=== PATIENT | female | born 1990 | race Caucasian/White ===

== ENCOUNTER 2017-07-27 16:28 | Emergency (ER) | payer SELFPAY ==
[~2017-07-27] VITALS: Ht 157.5 cm; Wt 80.7 kg
[~2017-07-27 16:28] MED LIST: ATENOLOL25 MG PO; ESTRACE 2MG. TAB2 MG PO; FIBER CON625 MG PO; GABAPENTIN300 MG PO; IRON TABLETS325 MG PO; KEFLEX 250MG.250 MG PO; MULTI VITAMINS1 TA1 PO; OMEPRAZOLE40 MG PO; PAXIL20 M1 PO; PERCOCET 325 MG1 TA4 PO; PERCOCET1 TAB PO; PROTONIX 40MG T40 MG PO
--- NOTE | 2017-07-27 16:34 | Emergency Room Report ---
History of Present Illness Time Seen by [id number] Presenting Problem in Triage Pt arrived:Walked Presenting Problem:RIGHT SIDE DENTAL PAIN; PT HAD A TOOTH REMOVED BY SHA HARMON DMD; PT PLACED ON CLINDAMYCIN AND LODINE. Onset of symptoms date/time:/ or onset unknown for:MEDICAL HX UNKNOWN Treatment Prior to Arrival: [employer] Provided by: Sepsis Risk Assessment: Temp: 97.8 B/P: 119/75 MAP: 89 Pulse: 68 Resp: 16 Recent fever? N Clinical Suspician of Infection? N Mental Status: 1 - Regular (Normal Baseline) Sepsis Risk:Low Sepsis Risk Have you (or family members/close friends) recently traveled outside the [place]? N If Yes, where/when: Have you had exposure to infectious disease within the past month? TB? Other? Specify: Comment The patient is brought in by mother. She complains of post dental extraction pain RIGHT mandible. She had a RIGHT molar extracted last Wednesday [address] Harmon in [place]. She has been having pain in that area since then. She was seen by the dentist yesterday and was told that she had a dry socket. The socket was packed, but patient says that the packing fell out. She was told by the dentist that that was okay that fell out. She says that she was also told that she has a "pocket of pus". She is on clindamycin and Lodine. Mother says that she has been on the phone with the dentist 6 times today. He is out sick. They told her to come to the emergency department for an antibiotic shot. Also told to double up on her antibiotics (clindamycin). ALLERGIES Coded Allergies: brompheniramine (From Dimetapp DM Cold-Cough (PE)) (Intermediate, I-RASH ) dextromethorphan (From Dimetapp DM Cold-Cough (PE)) (Intermediate, I-RASH ) lemon (Intermediate, I-HIVES 07/27/17) nitrofurantoin (From Macrobid) (Intermediate, I-HIVES 07/27/17) phenylephrine (From Dimetapp DM Cold-Cough (PE)) (Intermediate, I-RASH 07/27/17) Home Medications Reported Medications PAROXETINE HCL (Paxil) 40 MG PO DAILY Estradiol (Estrace 2MG. Tablet) 2 MG PO DAILY #20 Pantoprazole Sodium (Protonix 40MG TAB) 40 MG PO BID Atenolol (Atenolol) 12.5 MG PO DAILY Gabapentin (Gabapentin 300MG) 300 MG PO BID Calcium Polycarbophil (Fiber Con) 625 MG PO DAILY History Medical History General CAD? No Angina: No [place]: No Hypertension? No Hyperlipidemia? No CHF? No DVT? No PE? No COPD? No Asthma? No Anemia? No GERD? Yes Gastric ulcers? No GI Bleed? No Hernia? No Thyroid Problems? No Hypothyroidism? No CVA? No Seizures? No Diabetes? No Renal Insuffiency? No End Stage Renal Disease? No UTI? Yes Stones? No BPH? No GB Disease: No Nephritic Syndrome? No Asplenia? No Hepatitis? No Sickle Cell Disease? No Arthritis? No Migraines? No Cataracts? No Glaucoma? No MRSA? No HIV? No TB? No Anxiety? No Depression? No Cancer? No More? No Immunization Hx DT/Tetanus 1-4 Years Ago Flu Refused Pneumonia Never Had Surgical Hx Previous Surgery?Y Tonsils ORAL SURGERY APPENDECTOMY DX LAP HYSTERECTOMY D AND C Family History Family Hx Diabetes No CAD No Hypertension No Hyperlipidemia No Cancer Yes TB No Social History Smoking Hx Packs/day 1 1/2 - 2 Packs Alcohol Alcohol: No Review of Systems All Other Systems Reviewed and Negative Constitutional chills, fever (Subjective, temp not taken) ENT see HPI. Physical Exam Vital Signs Vital Signs Date Time Temp Pulse Resp B/P Pulse O2 O2 Flow FiO2 Ox Delivery Rate 07/27 1635 97.8 68 16 119/75 98 General Appearance mild distress (pain) Ear, Nose, Throat no facial edema. There is a RIGHT mandibular socket present from a recent extraction. No clot in the socket. No surrounding gingival erythema or edema, no discharge or odor., no sublingual swelling or elevation of the tongue. No neck or submandibular swelling. Airway patent. No adenopathy. Respiratory Status No: respiratory distress. Cardiovascular regular rate/rhythm, normal peripheral pulses Neurologic alert Medical Decision Making LABS/Meds/Orders Pt receiving controlled substance in ED? Yes Eran was queried for this patient? Yes Comment [id number] 5 rxs. last rx for gabapentin on 06/30/17. Results/Orders Current Medication Orders Sig/Adriana Start time Last Medication Dose Route Stop Time Status Admin Ceftriaxone Sodium 1 GM ONCE ONE 07/27 1645 DC IM 07/27 1646 Hydrocodone Bitart/ 1 TAB ONCE ONE 07/27 1645 DC Acetaminophen PO 07/27 1646 Lidocaine HCl 0 ONCE ONE 07/27 1645 DC IM 07/27 1646 Progress - I advised that I would give a shot of antibiotics. As I was leaving the room, mother also asks for something for pain. She states that the dentist told her to come to the emergency room to see if she has something else for pain. Pain medication was not mentioned to me during my initial interview, just that she had been sent here for an antibiotic shot. She saw the dentist yesterday and was not given a prescription for narcotic pain medication. Mother is not certain why this is. I advised I would give a limited supply and she should call the dentist tomorrow. Departure Departure Disposition DC Home or Self Care(routine) Clinical Impression Primary Impression: Pain, dental Condition STABLE Patient Instructions DI for Dental Pain Additional Instructions Additional instructions for DENTAL PROBLEMS: See a dentist as soon as possible for further evaluation. Return immediately if you have an uncontrollable fever greater than 102 degrees, difficulty breathing or shortness of breath, persistent vomiting, or inability to swallow. Prescriptions Current Visit Scripts HYDROCODONE/ACETAMINOPHEN ([place] 5-325 Tablet) 1 TAB PO Q6HP PRN pain #8 TAB ED Critical Care Critical Care No
[2017-07-27] MEDS ORDERED: NORCO 325 MG-51 TAB PO (16:50)
--- OUTSIDE RECORDS SUMMARY | 2017-07-27 16:58 | External Medical Summary Rpt | CCD ---
Author Author , ARGELIA Organization ARGELIA Address Unknown Phone Care Team Providers Care Trains Service Conductor Name Role Phone ALFARIS MOH, ALFARIS Unavailable Unavailable MOH ALFARIS MOH, ALFARIS Unavailable Unavailable MOH HUTTON BRO, HUTTON Unavailable Unavailable BRO HUTTON BRO, HUTTON Unavailable Unavailable BRO BESSON NELLY, BESSON Unavailable Unavailable [facility]available [facility]available [facility], [facility] Unavailable Unavailable [facility], [facility] RAMSEY, RAMSEY Unavailable Unavailable RAMSEY ALL, RAMSEY ALL Unavailable Unavailable [facility] Unavailable Unavailable [facility] Unavailable Unavailable SERVICE, [facility] Unavailable Unavailable SERVICE, [facility] CHEN JAM, CHEN JAM Unavailable Unavailable MARCIAL TEGAN, MARCIAL Unavailable Unavailable TEGAN [facility], Unavailable Unavailable [facility] Unavailable Unavailable [facility], [facility] Unavailable Unavailable [facility], [facility] Unavailable Unavailable THE BLUE, [facility] COOK, COOK Unavailable Unavailable YA, YA Unavailable Unavailable YA SHAILA, Unavailable Unavailable YA SHAILA OBANDO EVANGELISTA, OBANDO EVANGELISTA Unavailable Unavailable FALLUJI BROWN, FALLUJI Unavailable Unavailable BROWN FEEBACK REE, FEEBACK Unavailable Unavailable REE ROMINA, ROMINA Unavailable Unavailable ROMINA TREY, ROMINA Unavailable Unavailable TERY JOSE BRADFORD MD, Unavailable Unavailable JOSE BRADFORD MD VETO RHO, VETO Unavailable Unavailable RHO HARPEL, HARPEL Unavailable Unavailable HARPEL SERENA, HARPEL Unavailable Unavailable SERENA [facility] Unavailable Unavailable INC, [facility] Unavailable Unavailable HOSPITAL P, [facility], Unavailable Unavailable [facility] RENE LÓPEZ Unavailable Unavailable RENE BULLARD, RENE Unavailable Unavailable ALEAH [facility] Unavailable Unavailable [facility], [facility] Unavailable Unavailable MEDICAL G, [facility], [facility] Unavailable Unavailable HOLDINGS, [facility] RAS JR, RAS JR Unavailable Unavailable RAS JR DWI, RAS Unavailable Unavailable JR DWI RAS JR DWI, RAS Unavailable Unavailable JR DWI NANCY GRE, Unavailable Unavailable NANCY GRE NANCY GRE, Unavailable Unavailable NANCY GRE [facility] Unavailable Unavailable SERVICES, [facility] Unavailable Unavailable DEPT, [facility] Unavailable Un[facility], [facility] Unavailable Unavailable URGENT TREAT, [facility], [facility] Unavailable Unavailable [facility] Unavailable [facility] Unavailable Unavailable PLL[facility], [facility] AMADEO, AMADEO Unavailable Unavailable RENUSCH, RENUSCH Unavailable Unavailable SCALF JED, SCALF JED Unavailable Unavailable MICHAELA, MICHAELA Unavailable Unavailable MICHAELA SHE, Unavailable Unavailable MICHAELA SHE [facility] Unavailable Unavailable [facility], [facility] SWINEY PAT, SWINEY Unavailable Unavailable PAT SWINEY PAT, SWINEY Unavailable Unavailable PAT HOWARD MARIA DEL CARMEN, HOWARD Unavailable Unavailable MARIA DEL CARMEN [facility] ALEXIS, VORKPOR Unavailable Unavailable ALEXIS VORKPOR ALEXIS, VORKPOR Unavailable Unavailable ALEXIS WEHRMAN III JOHANNA, Unavailable Unavailable WEHRMAN III JOHANNA DANNY JOHANNA, DANNY JOHANNA Unavailable Unavailable Purpose Continuity of Care Document - 03-10-2013 through 2016 Problems Code Diagnosis DOS Provider Status [id number] ATOPIC 06-03-2017 [facility] NEURODERMAT HEALTH ITIS SOLUTIONS IN R12 HEARTBURN 06-03-2017 [facility] G2581 RESTLESS 05-13-2017 [facility] LEGS HEALTH SYNDROME SOLUTIONS IN N63 UNSPECIFIED 05-13-2017 [facility] IN HEALTH BREAST SOLUTIONS IN [id number] STRAIN UNS 05-13-2017 [facility] [employer] WRIST HAND SOLUTIONS LEVEL UNS IN INITIAL K219 GASTRO-ESOP 05-12-2017 [facility] DISEASE INC WITHOUT ESOPHAGITIS O20509 OT 05-12-2017 [facility] INVOLV MUSCULOSKEL ETAL SYS [id number] UNSPECIFIED 05-12-2017 [facility], LEFT WRIST PLLC INITIAL ENCOUNTER Z720 TOBACCO USE 05-12-2017 [facility] INC N644 MASTODYNIA 05-04-2017 [facility] R109 UNSPECIFIED 05-04-2017 [facility] PAIN [facility] K5900 CONSTIPATIO 04-01-2017 [facility] UNSPECIFIED SOLUTIONS IN K8080 OTHER 03-22-2017 [facility] CHOLELITHIA PHYSICIANS SIS WITHOUT GROUP OBSTRUCTION N951 MENOPAUSAL 03-22-2017 [facility] AND FEMALE PHYSICIANS CLIMACTERIC GROUP STATES R1013 EPIGASTRIC 03-15-2017 [facility] PAIN PHYSICIANS GROUP R198 OTH SPEC SX 03-15-2017 [facility] & SIGNS PHYSICIANS INVLV THE GROUP DIGESTV SYS & ABD R110 NAUSEA 2017 [facility] R140 ABDOMINAL 2017 [facility]ASE[facility] [id number] PAIN IN 03-03-2017 [facility] RIGHT LEG HEALTH SOLUTIONS IN W47880 PAIN IN 03-03-2017 [facility] LEFT LEG HEALTH SOLUTIONS IN R6882 DECREASED 02-05-2017 [facility] LIBIDO PHYSICIANS GROUP R0600 DYSPNEA 02-03-2017 [facility] UNSPECIFIED HEALTH SOLUTIONS IN R635 ABNORMAL 02-03-2017 [facility] WEIGHT GAIN HEALTH SOLUTIONS IN R1010 UPPER 02-02-2017 [facility]OM[facility]AL [facility], PAIN PLLC UNSPECIFIED Z888 ALLERGY 02-02-2017 [facility] STATUS OT [facility] RX MEDS & INC BIOLOG SUBSTANC STS K1121 ACUTE 01-21-2017 [facility] SIALOADENIT HEALTH IS SOLUTIONS IN R000 TACHYCARDIA 01-21-2017 [facility] UNSPECIFIED MEDICAL G R002 PALPITATION 01-21-2017 [facility] MEDICAL G R1084 GENERALIZED 01-21-2017 [facility] ABDOMINAL HEALTH PAIN SOLUTIONS IN N736 FEMALE 09-29-2016 [facility] P ADHESIONS POSTINFECTI VE R102 PELVIC AND 09-29-2016 [facility] PERINEAL ANESTH OF PAIN THE BLUE N390 URINARY 09-01-2016 [facility] TRACT PHYSICIANS INFECTION GROUP SITE NOT SPECIFIED N3001 ACUTE 08-14-2016 [facility] CYSTITIS PHYSICIANS WITH GROUP HEMATURIA D259 LEIOMYOMA 08-04-2016 [facility] UNSPECIFIED N72 INFLAMMATOR 08-04-2016 [facility] Y DISEASE LLC OF CERVIX UTERI N938 OTHER SPEC 08-04-2016 [facility] ABNORMAL PHYSICIANS UTERINE & GROUP VAGINAL BLEEDING N939 ABNORMAL 08-04-2016 [facility] UTERINE & ANESTH OF VAGINAL THE BLUE BLEEDING UNSPECIFIED N761 SUBACUTE 07-31-2016 [facility] AND CHRONIC PHYSICIANS VAGINITIS GROUP N920 EXCESS & 07-31-2016 [facility] FREQUENT [facility] MENSTRUATIO INC N W/REGULAR CYCLE [id number] ENCOUNTER 07-31-2016 [facility] FOR OTHER MEM HOS[facility] PREPROCEDUR INC AL EXAMINATION K5289 OTH SPEC 06-18-2016 [facility] NONINFECTIV PHYSICIANS E GROUP GASTROENTER ITIS & COLITIS Z0100 ENCOUNTER 03-20-2016 [facility] EXAM EYES & GRE VISION W/O ABNORMAL FIND R0602 SHORTNESS 11-22-2015 [facility] BREATH [facility] K210 GASTRO-ESOP 11-14-2015 [facility] REFLUX URGENT DISEASE W/ TREAT ESOPHAGITIS M545 LOW BACK 11-14-2015 [facility] URGENT TREAT N831 CORPUS 10-31-2015 JOSE Costello LUTEUM CYST SANCHEZ MORE N9489 OTH COND 10-31-2015 JOSE Costello ASSOC W/FE SANCHEZ MORE GEN ORGN & MENSTRUAL CYCL 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 E47324 PAIN IN 08-15-2015 [facility] LEFT WRIST [id number] UNSPECIFIED 08-15-2015 [facility] [place] [facility] WRIST HAND FINGERS INITIAL N201 CALCULUS OF 07-28-2015 [facility] URETER N23 UNSPECIFIED 07-28-2015 [facility] RENAL COLIC N3000 ACUTE 07-28-2015 [facility] CYSTITIS WITHOUT HEMATURIA 0340 STREPTOCOCC 06-12-2015 [place] AL SORE [facility] 96178 OTHER CHEST 06-12-2015 ALFARIS MOH PAIN V148 PERSONAL 06-12-2015 [place] HISTORY [facility] ALLERGY [facility]PITAL SPEC MEDICINAL AGTS 61855 VOLUME 06-11-2015 [facility] PAT DEPLETION UNSPECIFIED 2768 HYPOPOTASSE 06-11-2015 [facility] PAT CICI 21842 CHEST PAIN 06-11-2015 [facility] [place] UNSPECIFIED RADIOLOGY 81568 PAINFUL 06-11-2015 [facility] PAT RESPIRATION 02553 OTHER 06-07-2015 [facility] HEALTH CARDIAC MEDICAL G DYSRHYTHMIA S 7851 PALPITATION 06-07-2015 [facility] V1259 PERS HX, 06-04-2015 [facility] [place] OTHER DWI DISEASES OF CIRCULATORY SYSTEM 6259 UNSPEC 02-19-2015 [facility] SYMPTOM ANESTH OF ASSOC THE BLUE W/FEMALE GENITAL ORGANS V7283 OTHER 02-11-2015 [facility] SPECIFIED [facility] PRE-OPERATI INC VE EXAMINATION 6238 OTHER 02-08-2015 [facility] SPECIFIED [facility]ICAL NONINFLAMMA IMAGING ASS TORY DISORDER VAGINA 6262 EXCESSIVE 02-04-2015 JOSE Costello OR FREQUENT SANCHEZ MORE MENSTRUATIO N 7850 UNSPECIFIED 10-02-2014 [facility] 4279 UNSPECIFIED 09-15-2014 [place] CARDIAC MEDICAL DYSRHYTHMIA IMAGING ASS V242 ROUTINE 06-07-2014 [facility] S 5990 URINARY 05-25-2014 JOSE Costello TRACT SANCHEZ MORE INFECTION SITE NOT SPECIFIED 19214 TRANSIENT 05-01-2014 JOSE BRADFORD MD N OF W/DELIVERY 42855 FETOPELVIC 05-01-2014 JOSE Costello DISPROPORTI SANCHEZ MORE ON, DELIVERED 83646 PRIMARY 05-01-2014 [facility] UTERINE ANESTH OF INERTIA [place] ROSS WITH DELIVERY 54373 C/S DELIV 05-01-2014 JOSE Costello W/O INDICAT SANCHEZ MORE DELIV W/WO ANTPRTM COND V270 OUTCOME OF 05-01-2014 JOSE Costello DELIVERY SANCHEZ MORE SINGLE LIVEBORN 26896 MILD OR 04-30-2014 [facility] UNSPECIFIED [facility] INC PRE-ECLAMPS IA WITH DELIVERY V221 SUPERVISION 04-30-2014 JOSE Costello OF OCTAVIO BRADFORD MD NORMAL 63143 TRANSIENT 04-26-2014 JOSE BRADFORD MD N OF ANTEPARTUM V220 SUPERVISION 04-09-2014 [facility] [place] [address] OTHER 03-27-2014 ANNI MARIE SPECIFED COMPLICATIO N ANTEPARTUM V286 SCREENING 03-23-2014 [facility] [place] [address] THREATENED 03-21-2014 [facility] PREMATURE [facility] LABOR INC ANTEPARTUM V771 SCREENING 02-03-2014 [facility] FOR [facility] DIABETES INC MELLITUS V2889 OTHER 12-07-2013 [facility] SPECIFIED [facility]OS[facility] INC SCREENING 52423 PAIN IN 09-14-2013 [facility] [place], AMBULANCE LOWER LEG SERVICE 8449 SPRAIN&STRA 09-14-2013 [facility] IN OF EMERGENCY UNSPECIFIED SERVICES SITE OF KNEE&LEG 8470 NECK SPRAIN 09-14-2013 [facility] AND STR[facility] EMERGENCY SERVICES 9222 CONTUSION 09-14-2013 [facility] ABDOMINAL INC WALL E8120 OTH MOTR 09-14-2013 [facility] W/MOTR SERVICES VEH-INJR MV LIBRARIAN E8150 OTH MOTR 09-14-2013 [facility] W/OBJ SERVICE HIWAY-INJUR ING LIBRARIAN V222 09-14-2013 [facility] INCIDENTAL INC V704 EXAMINATION 09-05-2013 [facility] MEDICOLEGAL LABORATORIE REASON S V7231 ROUTINE 09-05-2013 JOSE BRADFORD MD AL EXAMINATION V2509 [facility] GENERAL 08-30-2013 [facility] HEALTH CNSL&ADVICE DEPT CONTRACEPT MANAGEMENT V2689 OTHER 08-30-2013 [facility] SPECIFIED HEALTH PROCREATIVE DEPT MANAGEMENT V7242 08-30-2013 [facility] EXAMINATION HEALTH OR TEST DEPT POSITIVE RESULT Allergies, Adverse Reactions, Alerts Type Drug Allergy Adverse Reaction to Substance Substance Reaction Severity Dextromethorphan Unknown Unknown Phenylpropanolamine Unknown Unknown Brompheniramine Unknown Unknown Medications Na ND Rx Da Fi Fi Am Da Di Ph RX Ph St me C No te ll ll ou ys ag ar # ys at rm s nt no ma ic us Or Da si cy ia de te s n re d FI 37 09 10 60 30 00 CA Ac BE 20 -2 -1 .0 00 RL ti R 50 0- 3- 00 00 IS ve LA 21 20 20 77 LE XA 37 17 17 [address] VE UG S 62 5 MG TA BL ET GA 69 09 10 90 30 00 CA Ac BA 09 -2 -1 .0 00 RL ti PE 70 0- 3- 00 00 IS ve NT 81 20 20 77 LE IN 21 17 [address] 60 UG 0 S MG TA BL ET ET 00 09 10 16 6 00 CA Ac OD 18 -2 -1 .0 00 RL ti OL 50 0- 3- 00 00 IS ve AC 67 20 20 78 LE 51 17 17 [address] 0 UG MG S TA BL ET AT 00 08 09 30 30 00 CA Ac EN 09 -3 -2 .0 00 RL ti OL 30 1- 9- 00 00 IS ve OL 78 20 20 77 LE 71 17 17 [address] UG MG S TA BL ET ES 00 08 90 30 00 CA Ac TR 55 -3 -2 .0 00 RL ti AD 50 1- 9- 00 00 IS ve IO 88 20 20 77 LE L 60 17 17 [address] MG UG S TA BL ET PA 00 08 09 30 30 00 CA Ac RO 37 -3 -2 .0 00 RL ti XE 87 1- 9- 00 00 IS ve TI 00 20 20 77 LE NE 49 17 [address] HC UG L S 40 MG TA BL ET ME 00 08 09 60 15 00 CA Ac TO 09 -2 -2 .0 00 RL ti CL 32 5- 2- 00 00 IS ve OP 20 20 20 77 LE RA 30 17 [address] DE UG S 10 MG TA BL ET TR 67 08 09 80 15 00 CA Ac IA 87 -2 -2 .0 00 RL ti MC 70 5- 2- 00 00 IS ve IN 25 20 20 77 LE OL 18 17 [address] E UG 0. S 1% CR EA M GA 69 08 90 30 00 CA Ac BA 09 -1 -1 .0 00 RL ti PE 70 8- 5- 00 00 IS ve NT 81 20 20 77 LE IN 21 17 [address] 60 UG 0 S MG TA BL ET FI 37 08 60 30 00 CA Ac BE 20 -1 -0 .0 00 RL ti R 50 4- 8- 00 00 IS ve LA 21 20 20 77 LE XA 37 17 17 [address] VE UG S 62 5 MG TA BL ET PA 00 09 30 30 00 CA Ac RO 37 -0 -0 .0 00 RL ti XE 87 4- 1- 00 00 IS ve TI 00 20 20 77 LE NE 49 17 [address] HC UG L S 40 MG TA BL ET AT 00 08 09 30 30 00 CA Ac EN 09 -0 -0 .0 00 RL ti OL 30 4- 1- 00 00 IS ve OL 78 20 20 77 LE 71 17 17 [address] UG MG S TA BL ET ES 00 05 19 90 30 00 CA Ac TR 55 -0 -0 .0 00 RL ti AD 50 4- 1- 00 00 IS ve IO 88 20 20 77 LE L 60 17 17 [address] MG UG S TA BL ET GA 68 07 90 30 00 CA Ac BA 46 -2 -1 .0 00 RL ti PE 20 1- 8- 00 00 IS ve NT 12 20 20 77 LE IN 60 17 [address] 60 UG 0 S MG TA BL ET NA 68 07 08 60 30 00 CA Ac KY 46 -1 -1 .0 00 RL ti OX 20 7- 1- 00 00 IS ve EN 19 20 20 77 LE 00 17 17 [address] 0 UG MG S TA BL ET FI 37 07 08 60 30 00 CA Ac BE 20 -1 -1 .0 00 RL ti R 50 7- 1- 00 00 IS ve LA 21 20 20 77 LE XA 37 17 17 [address] VE UG S 62 5 MG TA BL ET PA 00 07 08 30 30 00 CA Ac RO 37 -0 -0 .0 00 RL ti XE 87 7- 4- 00 00 IS ve TI 00 20 20 77 LE NE 49 17 [address] HC UG L S 40 MG TA BL ET AT 00 07 08 30 30 00 CA Ac EN 09 -0 -0 .0 00 RL ti OL 30 7- 4- 00 00 IS ve OL 78 20 20 77 LE 71 17 17 [address] UG MG S TA BL ET ES 00 07 08 90 30 00 CA Ac TR 55 -0 -0 .0 00 RL ti AD 50 7- 4- 00 00 IS ve IO 88 20 20 77 LE L 60 17 17 [address] MG UG S TA BL ET PA 65 06 07 30 30 00 CA Ac NT 86 -2 -2 .0 00 RL ti OP 20 3- 8- 00 00 IS ve RA 56 20 20 77 LE ZO 09 17 [address] UG SO S D DR 40 MG TA B GA 68 06 07 90 30 00 CA Ac BA 46 -2 -2 .0 00 RL ti PE 20 3- 8- 00 00 IS ve NT 12 20 20 77 LE IN 60 17 [address] 60 UG 0 S MG TA BL ET PO 51 06 07 25 15 00 CA Ac LY 99 -2 -2 5. 00 RL ti ET 10 3- 8- 00 00 IS ve HY 45 20 20 0 77 LE LE 75 17 [address] UG GL S YC OL 33 50 PO WD FI 37 06 07 60 30 00 CA Ac BE 20 -2 -1 .0 00 RL ti R 50 1- 4- 00 00 IS ve LA 21 20 20 77 LE XA 37 17 17 [address] VE UG S 62 5 MG TA BL ET ES 00 06 06 90 30 00 CA Ac TR 55 -0 -3 .0 00 RL ti AD 50 5- 0- 00 00 IS ve IO 88 20 20 77 LE L 60 17 17 [address] MG UG S TA BL ET PA 00 03 16 30 30 00 CA Ac RO 37 -0 -3 .0 00 RL ti XE 87 5- 0- 00 00 IS ve TI 00 20 20 77 LE NE 49 17 [address] HC UG L S 40 MG TA BL ET AT 00 03 16 30 30 00 CA Ac EN 09 -0 -3 .0 00 RL ti OL 30 5- 0- 00 00 IS ve OL 78 20 20 77 LE 71 17 17 55 25 0 24 UG MG S TA BL ET PA 65 02 13 30 30 00 SO Ac NT 86 -3 -2 .0 00 PE ti OP 20 0- 3- 00 00 RS ve RA 56 20 20 56 ZO 09 17 17 24 FA LE 0 43 PA LY SO D [address] DR BELTRAN 40 MG TA B GA 68 05 30 00 CA Ac BA 46 -2 -2 .0 00 RL ti PE 20 6- 3- 00 00 IS ve NT 12 20 20 77 LE IN 60 17 17 55 5 21 60 UG 0 S MG TA BL ET AT 00 06 30 30 00 WA Ac EN 78 -1 -0 .0 00 L- ti OL 11 0- 2- 00 07 MA ve OL 07 20 20 40 RT 80 17 17 38 25 1 19 PH AR MG MA CY TA BL #4 ET 93 PA 65 04 30 30 00 SO Ac NT 86 -2 -2 .0 00 PE ti OP 20 7- 6- 00 00 RS ve RA 56 20 20 56 ZO 09 17 17 24 FA LE 0 43 PA LY SO D [address] DR BELTRAN 40 MG TA B GA 65 04 90 30 00 WA Ac BA 16 -2 -2 .0 00 L- ti PE 20 7- 6- 00 07 MA ve NT 10 20 20 40 RT IN 25 17 17 62 0 00 PH 30 AR 0 MA MG CY CA #4 PS 93 UL E PA 68 05 30 30 00 WA Ac RO 38 -0 -2 .0 00 L- ti XE 20 3- 6- 00 07 MA ve TI 00 20 20 40 RT NE 10 17 17 72 6 29 PH HC AR L MA 40 CY MG #4 93 TA BL ET CE 16 04 30 30 00 SO Ac TI 57 -2 -1 .0 00 PE ti RI 10 - 9- 00 RS ve ZI 40 20 20 56 NE 25 17 17 23 FA 0 61 PA HC LY L 10 DR UG MG TA BL ET FI 00 04 05 60 30 00 WA Ac BE 00 -2 -1 .0 00 L- ti RC 52 9 08 MA ve ON 50 20 20 83 RT 02 17 17 76 62 3 04 PH 5 AR MG MA CY CA PL #4 ET 93 ES 00 04 05 20 20 00 SO Ac TR 55 -1 -1 .0 00 PE ti AD 50 3- 2- 00 00 RS ve IO 88 20 20 56 L 70 17 17 13 FA 2 2 77 PA MG LY TA DR BL UG ET LE 68 04 05 10 10 00 WA Ac VO 38 -1 -1 .0 00 L- ti FL 20 2 07 MA ve OX 01 20 20 40 RT AC 60 17 17 38 IN 1 99 PH AR 50 MA 0 CY MG #4 TA 93 BL ET OM 60 04 05 30 MO Ac EP 50 -0 -0 .0 00 L- ti RA 50 7 5 07 MA ve ZO 14 20 20 40 RT LE 60 17 [address] AR MA 40 CY MG #4 93 CA PS UL E AT 00 04 30 30 00 MO Ac EN 78 -0 -2 .0 00 L- ti OL 11 8 07 MA ve OL 07 20 20 40 RT 80 17 17 22 25 1 58 PH AR MG MA CY TA BL #4 ET 93 PA 68 04 04 30 30 00 WA Ac RO 38 -0 -2 .0 00 L- ti XE 20 8- 07 MA ve TI 00 20 20 39 RT NE 10 17 17 10 6 20 PH HC AR L MA 40 CY MG #4 93 TA BL ET GA 53 04 04 90 30 00 WA Ac BA 74 -0 -2 .0 00 L- ti PE 60 1 8- 07 MA ve NT 10 20 20 39 RT IN 20 17 17 11 5 64 PH 30 AR 0 MA MG CY CA #4 PS 93 UL E PA 68 03 03 30 30 00 WA Ac RO 38 -0 -3 .0 00 L- ti XE 20 4- 1- 07 MA ve TI 00 20 20 39 RT NE 10 17 17 10 6 20 PH HC AR L MA 40 CY MG #4 93 TA BL ET FI 00 03 03 60 30 00 WA Ac BE 00 -0 -3 .0 00 L- ti RC 52 6- 1- 00 08 MA ve ON 50 20 20 83 RT 02 17 17 76 62 3 04 PH 5 AR MG MA CY CA PL #4 ET 93 GA 53 03 03 90 30 00 MO Ac BA 74 -0 -3 .0 00 L- ti PE 60 4- 1- 00 07 MA ve NT 10 20 20 39 RT IN 20 17 17 11 5 64 PH 30 AR 0 MA MG CY CA #4 PS 93 UL E OM 60 03 03 30 30 00 MO Ac EP 50 -0 -3 .0 00 L- ti RA 50 8- 1- 00 07 MA ve ZO 14 20 20 37 RT LE 60 17 17 [address] AR MA 40 CY MG #4 93 CA PS UL E AT 00 02 03 45 30 00 MO Ac EN 78 -2 -2 .0 00 L- ti OL 11 4- 4- 00 07 MA ve OL 07 20 20 37 RT 80 17 17 71 25 1 63 PH AR MG MA CY TA BL #4 ET 93 CE 16 02 03 30 30 00 MO Ac TI 57 -0 -0 .0 00 L- ti RI 10 6- 3- 00 08 MA ve ZI 40 20 20 83 RT NE 25 17 17 92 0 21 PH HC AR L MA 10 CY MG #4 93 TA BL ET PA 68 02 03 30 30 00 MO Ac RO 38 -0 -0 .0 00 L- ti XE 20 6- 3- 00 07 MA ve TI 00 20 20 39 RT NE 10 17 17 10 6 20 PH HC AR L MA 40 CY MG #4 93 TA BL ET FL 60 02 03 32 60 00 MO Ac UT 43 -0 -0 .0 00 L- ti IC 20 6- 3- 00 07 MA ve 26 20 20 39 RT ON 41 17 17 10 E 5 23 PH [place] AR OP MA CY 50 #4 MC 93 G SP RA Y GA 53 02 03 90 30 00 MO Ac BA 74 -0 -0 .0 00 L- ti PE 60 6- 3- 00 07 MA ve NT 10 20 20 39 RT IN 20 17 17 11 5 64 PH 30 AR 0 MA MG CY CA #4 PS 93 UL E FL 55 02 03 1. 1 00 MO Ac UC 11 -0 -0 00 00 L- ti ON 10 6- 3- 0 07 MA ve AZ 14 20 20 39 RT OL 51 17 17 11 E 2 65 PH 15 AR 0 MA MG CY TA #4 BL 93 ET OM 60 02 03 30 30 00 WA Ac EP 50 -0 -0 .0 00 L- ti RA 50 8- 3- 00 07 MA ve ZO 14 20 20 37 RT LE 60 17 17 [address] AR MA 40 CY MG #4 93 CA PS UL E FI 00 01 02 60 30 00 MO Ac BE 00 -2 -2 .0 00 L- ti RC 52 9- 4- 00 08 MA ve ON 50 20 20 83 RT 02 17 17 76 62 3 04 PH 5 AR MG MA CY CA PL #4 ET 93 GA 16 01 02 60 30 00 MO Ac BA 71 -1 -1 .0 00 L- ti PE 40 4- 0- 00 07 MA ve NT 50 20 20 38 RT IN 40 17 17 50 2 72 PH 30 AR 0 MA MG CY CA #4 PS 93 UL E OM 60 01 02 30 30 00 MO Ac EP 50 -1 -0 .0 00 L- ti RA 50 1- 3- 00 07 MA ve ZO 14 20 20 37 RT LE 60 17 17 [address] AR MA 40 CY MG #4 93 CA PS UL E PA 54 01 01 30 30 00 MO Ac RO 45 -0 -2 .0 00 L- ti XE 80 4- 7- 00 07 MA ve TI 98 20 20 38 RT NE 91 17 17 50 0 71 PH HC AR L MA 20 CY MG #4 93 TA BL ET PA 68 12 01 6. 7 00 WA Ac RO 38 -2 -2 00 00 L- ti XE 20 3- 0- 0 07 MA ve TI 09 20 20 36 RT NE 80 16 17 66 6 97 PH HC AR L MA 20 CY MG #4 93 TA BL ET FI 00 12 01 60 30 00 WA Ac BE 00 -2 -2 .0 00 L- ti RC 52 3- 0- 00 08 MA ve ON 50 20 20 83 RT 02 16 17 76 62 3 04 PH 5 AR MG MA CY CA PL #4 ET 93 GA 65 12 01 60 30 00 WA Ac BA 16 -1 -1 .0 00 L- ti PE 20 9- 3- 00 07 MA ve NT 10 20 20 35 RT IN 25 16 17 83 0 09 PH 30 AR 0 MA MG CY CA #4 PS 93 UL E AT 00 12 01 45 30 00 MO Ac EN 78 -1 -1 .0 00 L- ti OL 11 9- 3- 00 07 MA ve OL 07 20 20 37 RT 80 16 17 71 25 1 63 PH AR MG MA CY TA BL #4 ET 93 OM 00 12 01 30 30 00 WA Ac EP 78 -1 -1 .0 00 L- ti RA 12 6- 3- 00 07 MA ve ZO 23 20 20 37 RT LE 43 16 17 [address] AR MA 40 CY MG #4 93 CA PS UL E HY 42 12 01 [address] 85 -1 -1 .0 00 PE ti OM 80 9- 3- 00 00 RS ve OR 30 20 20 55 PH 20 16 17 14 FA ON 1 52 PA E LY [address] UG TA BL ET GA 67 12 01 30 10 00 SO Ac BA 87 -0 -0 .0 00 PE ti PE 70 8- 9- 00 00 RS ve NT 22 20 20 55 IN 30 16 17 01 FA 5 24 PA [address] UG CA PS UL E Vital Signs 09-14-2013 12:45 Name Value Interpretat Reference Comment ion Range Body 99.2 [degF] Temperature BP 74 mm[Hg] Diastolic BP Systolic 127 mm[Hg] Heart 84 /min Rate/Pulse O2% 98 % Respiratory 20 /min Rate 09-14-2013 12:43 Name Value Interpretat Reference Comment ion Range Body 99.2 [degF] Temperature BP 74 mm[Hg] Diastolic BP Systolic 127 mm[Hg] Heart 84 /min Rate/Pulse O2% 98 % Respiratory 20 /min Rate Results Labs Lab Lab Date Result Refere Interp Status Commen Order Detail nces retati t Range on CHLAMYDIA AND GONORRHEA TESTING (03-10-2013 09:50) Chlamyd NEGATIV complet ia 013 E ed trachom 09:50 atis rRNA [Presen ce] in Unspeci fied specime n by Probe & target amplifi cation method Neisser NEGATIV complet ia 013 E ed gonorrh 09:50 oeae rRNA [Presen ce] in Unspeci fied specime n by Probe & target amplifi cation method CHLAMYDIA AND GONORRHEA TESTING (03-10-2013 09:50) COLLECT [id number] complet OR 013 ed 09:50 ETHNICI WHITE, complet TY 013 NON-HIS ed 09:50 PANIC KIT complet EXPIRAT 013 ed ION 09:50 DATE SYMPTOM NO complet S ed 09:50 REASON FAMILY complet FOR 013 PLANNIN ed REQUEST 09:50 G PREGNAN CY TEST VISIT SPECIME URINE complet N ed SOURCE 09:50 PREGNAN NO complet T ed 09:50 CHART N/A complet NUMBER ed 09:50 Chlamyd Pending complet ia ed trachom 09:50 atis rRNA [Presen ce] in Unspeci fied specime n by Probe & target amplifi cation method Neisser Pending complet ia ed gonorrh 09:50 oeae rRNA [Presen ce] in Unspeci fied specime n by Probe & target amplifi cation method Procedures Procedure DOS Code Location Performer Comment TOBACCO 1000F [facility] USE 7 HEALTH ASSESSED SOLUTIONS IN BODY MASS 3008F [facility] INDEX 7 HEALTH DOCUMENTE SOLUTIONS D IN CURRENT 1034F [facility] TOBACCO 7 HEALTH SMOKER SOLUTIONS IN BODY MASS 3008F [facility] INDEX 7 HEALTH DOCUMENTE SOLUTIONS D IN TOBACCO 1000F [facility] USE 7 HEALTH ASSESSED SOLUTIONS IN CURRENT 1034F [facility] TOBACCO 7 HEALTH SMOKER SOLUTIONS IN APPLICATI 74981 [facility] ON SHORT 7 [facility] ARM INC INC SPLINT FOREARM-H AND STATIC RADEX 19986 [facility] RENUS[facility] WRIST 7 PHYSICIAN COMPLETE S, PLLC MINIMUM 3 VIEWS US BREAST 61105 [facility] UNI REAL 7 [facility] TIME INC INC WITH IMAGE COMPLETE US BREAST 35290 [facility] TYLERYA UNI REAL 7 MEDICAL [place]AG[place] [address] [place] TRACT UPR 7 MEDICAL W/SM INT IMAGING W/MULT ASS SERIAL IMAGES RAD EXP G9500 [place] RAMSE[facility] INDICES/E 7 MEDICAL XP TM & IMAGING NUMB ASS FLUORO IMAGES DOC FINAL G9551 [place] [facility] REPR ABD 7 MEDICAL IMAG STS IMAGING W/O ASS INCIDNT [place] [address] [facility] ABDOMINAL 7 [facility] REAL INC [place] W/[place] [address] ANTHONY RAMSEY ABDOMINAL 7 MEDICAL REAL IMAGING TIME ASS W/IMAGE LIMITED COLLECTIO 09979 [facility] N VENOUS 7 [facility] [place] [address] [facility] THYROID 7 [facility] STIMULATI INC INC NG HORMONE TSH GONADOTRO 25318 [facility] PIN 7 [facility] LUTEINIZI INC INC NG HORMONE GONADOTRO 92294 [facility] PIN 7 [facility] FOLLICLE [place] [address] [facility] TOLU TESTOSTER 7 [facility] ONE FREE INC INC CURRENT 1034F ETHAN LÓPEZ TOBACCO 7 [place] [address] [facility] LIPASE 7 [place] [address] [facility] AMYLASE 7 [facility] INC BODY MASS 3008F ETHAN LÓPEZ INDEX 7 HEALTH DOCUMENTE SOLUTIONS D IN BLOOD 19633 [facility] COUNT 7 [facility] COMPLETE INC INC AUTO&AUTO DIFRNTL WBC GENERAL 91534 LAB THAI LAB THAI HEALTH 7 SAMI SAMI PANEL HOLDINGS HOLDINGS COLLECTIO 80054 ETHAN LÓPEZ N VENOUS 7 HEALTH BLOOD SOLUTIONS VENIPUNCT IN URE COMPREHEN 88525 [facility] SIVE 7 [facility] METABOLIC INC INC PANEL TOBACCO 1000F ETHAN LÓPEZ USE 7 [place] [address] [facility] INFUSION 7 [facility] THERAPY/P INC INC ROPHYLAXI S /DX 1ST TO 1 HR THERAPEUT 91035 [facility] IC 7 [facility] INJECTION INC INC IV PUSH EACH NEW DRUG THERAPEUT 23837 [facility] IC 7 [facility] INJECTION INC INC IV PUSH EACH NEW DRUG FINAL G9638 MARISELTONIEOlamide RAMSEY REPORTS 7 MEDICAL W/O DOC IMAGING 1/MORE ASS DOSE REDUCTION TECH FINAL G9551 ANTHONY RAMSEY REPR ABD 7 MEDICAL IMAG STS IMAGING W/O ASS INCID[place]: [place] [address] [facility] LIPASE 7 [place] [address] ANTHONY RAMSEY ABDOMEN & 7 MEDICAL PELVIS IMAGING W/O ASS CONTRAST MATERIAL ANESTHESI 23399 [facility] 6 ANESTH INTRAPERI OF THE TONEAL BLUE LOWER ABD W/LAPS NOS BASIC 98255 [facility] METABOLIC 6 [facility] PANEL INC INC CALCIUM TOTAL ECG 76187 [facility] MCGINNIS JR ROUTINE 6 [facility] W/LEAST P 12 LDS I&R ONLY COLLECTIO 03637 [facility] N VENOUS 6 [facility] BLOOD INC INC VENIPUNCT URE URNLS DIP 50804 [facility] 6 [facility] STICK/TAB INC INC LET REAGENT AUTO MICROSCOP Y BLOOD 25975 [facility] COUNT 6 [facility] COMPLETE INC INC AUTO&[place] [address] [facility] TRANSVAGI 6 [place] [address] ANTHONY RAMSEY ALL TRANSVAGI 6 MEDICAL NAL IMAGING ASS URINLS 36142 [facility] DIP 6 PHYSICIAN SERENA STICK/TAB S GROUP LET REAGNT NON-AUTO MICRSCPY CULTURE 66323 [facility] BACTERIAL 6 [facility] INC INC QUANTTATI VE COLONY COUNT URINE URINLS 97557 [facility] DIP 6 PHYSICIAN SERENA STICK/TAB S GROUP LET REAGNT NON-AUTO MICRSCPY HOSPITAL G0378 [facility] OBSERVATI 6 [facility] ON INC INC SERVICE PER HOUR HOSPITAL G0378 [facility] OBSERVATI 6 [facility] ON INC INC [place] [address] [facility], SURG 6 [facility] PATHOLOGY GROSS&TREY ROSCOPIC EXAM COLLECTIO 42732 [facility] N VENOUS 6 [facility] BLOOD INC INC VENIPUNCT URE CULTURE 80960 T[facility] BACTERIAL 6 [facility] INC INC QUANTTATI VE COLONY COUNT URINE TOBACCO 41158 TOLUROGELIO MOT[facility] USE 6 [facility] CESSATION INC INC INTERMEDI ATE 3-10 MINUTES URNLS DIP 52763 [facility] 6 [facility] STICK/TAB INC INC LET REAGENT AUTO MICROSCOP Y BLOOD 92153 [facility] COUNT 6 [facility] HEMATOCRI INC INC T LAPS 19999 [facility] VAGINAL 6 PHYSICIAN SERENA HYSTERECT S GROUP LIZETH UTERUS 250 GM/< BLOOD 40697 TL[facility] COUNT 6 [facility] HEMOGLOBI INC INC N NONINVASI 49631 [facility] VE 6 [facility] EAR/PULSE INC INC OXIMETRY OVERNIGHT MONITOR ANESTHESI 26584 [facility] VAGINAL 6 ANESTH SHE OF THE HYSTERECT BLUE LIZETH INCL BIOPSY GONADOTRO 24280 [facility] PIN 6 [facility] CHORIONIC INC INC QUALITATI VE BLOOD 26759 [facility] COUNT 6 [facility] COMPLETE INC INC AUTO&AUTO DIFRNTL WBC URNLS DIP 87414 [facility]U 6 [facility] STICK/TAB INC INC LET REAGENT AUTO MICROSCOP Y COLLECTIO 49332 [facility] N VENOUS 6 [facility] BLOOD INC INC VENIPUNCT URE SMR PRIM 33834 [facility] SRC WET 6 PHYSICIAN SERENA MOUNT S GROUP NFCT AGT THERAPEUT 17839 [facility] IC 6 PHYSICIAN SERENA PROPHYLAC S GROUP TIC/DX INJECTION SUBQ/[place] [address] [facility] ABDOMEN & 6 [facility] PELVIS INC INC W/CONTRAS T MATERIAL HGB 64602 [facility] QUANTITAT 6 PHYSICIAN SERENA ARLETTE S GROUP TRANSCUTA NEOUS THERAPEUT 55209 [facility] IC 6 PHYSICIAN SERENA PROPHYLAC S GROUP TIC/DX INJECTION SUBQ/IM OPHTH 51760 [facility] 6 GRE GRE XM&EVAL COMPRE NEW PT 1/> VST BLOOD 99508 [facility] COUNT 6 [facility] HEMATOCRI INC INC T BLOOD 53289 [facility] COUNT 6 [facility] HEMOGLOBI INC INC N INJECTION J2405 [facility] 6 [facility] ONDANSETR INC INC ON HCL PER 1 MG ANES 46567 [facility] HYSTEROSC 6 ANESTH REE OPY&/HYST OF THE EROSALPIN BLUE GOGRAPHY W/BX HYSTEROSC 76853 [facility] OPY BX 6 PHYSICIAN SERENA ENDOMETRI S GROUP UM&/POLYP C W/WO D&C COLLECTIO 09124 [facility] N VENOUS 6 [facility] HOSP [place]LOOD [place] [address] [facility], SURG 6 [facility] PATHOLOGY GROSS&TREY ROSCOPIC EXAM ECG 21333 SACHI KARIMI ROUTINE 6 NELLY NELLY ECG W/LEAST 12 LDS I&R ONLY INJECTION J0131 [facility] 6 [facility] ACETAMINO INC INC PHEN 10 MG URNLS DIP 54973 [facility] 6 [facility] STICK/TAB INC INC LET REAGENT AUTO MICROSCOP Y COLLECTIO 93769 [facility] N VENOUS 6 [facility] BLOOD INC INC VENIPUNCT URE SMR PRIM 95471 JOSE BRADFORD SRC WET 6 SANCHEZ LYONS [facility] NFCT AGT GONADOTRO 86093 [facility] PIN 6 [facility] CHORIONIC INC INC QUALITATI VE BLOOD 45543 [facility] COUNT 6 [facility] COMPLETE INC INC AUTO&AUTO DIFRNTL WBC RADIOLOGI 63070 [facility] [place] CHEN JAM C 6 RADIOLOGY EXAMINATI ON CHEST SINGLE VIEW FRONTAL RADEX 27992 NWAUCHE NWAUCHE SPINE 6 [facility] LUMBOSACR AL 2/3 VIEWS 24062 [facility] TRANSVAGI 6 [facility] NAL INC INC RADEX 02245 [facility] [place] VET[place] WRIST 5 RADIOLOGY RHO COMPLETE MINIMUM 3 VIEWS RADEX 27804 VORKPOR VORKPOR WRIST [address] [place] [address] [facility] [place]ET[place] ABDOMEN & 5 RADIOLOGY RHO PELVIS W/O CONTRAST MATERIAL ECG 33155 ALFARIS ALFARIS ROUTINE 5 [facility] MOH ECG W/LEAST 12 LDS I&R ONLY THERAPEUT 29980 JOAN FRANCO IC 5 [facility] TIC/DX INJECTION SUBQ/IM RADIOLOGI 22010 SWINEY SWINEY C 5 PAT PAT EXAMINATI ON CHEST SINGLE VIEW FRONTAL ECG 50985 SWINEY SWINEY ROUTINE 5 PAT PAT ECG W/LEAST 12 LDS I&R ONLY RADIOLOGI 85631 [facility] [place] SCALF JED C EXAM 5 RADIOLOGY CHEST 2 VIEWS FRONTAL&L ATERAL XTRNL ECG 99048 [facility] & 48 HR 5 [facility] RECORDING INC INC EXTERNAL 51899 [facility] ECG 5 [facility] SCANNING INC INC ANALYSIS REPORT XTRNL ECG 60200 RAS MCGINNIS JR 5 DWI DWI CONTINUOU S RHYTHM W/I&R UP TO [address] [facility] 5 ANESTH MARIA DEL CARMEN INTRAPERI OF THE TONEAL BLUE LOWER ABD W/LAPS NOS BLOOD 19142 [facility] COUNT 5 [facility] COMPLETE INC INC AUTO&AUTO DIFRNTL WBC URNLS DIP 00858 [facility] 5 [facility] STICK/TAB INC INC LET REAGENT AUTO MICROSCOP Y GONADOTRO 99632 [facility] PIN 5 [facility] CHORIONIC INC INC QUALITATI VE COLLECTIO 42429 T[facility] N VENOUS 5 [facility] [place] [address] [place] D[place] J[place] TRANSVAGI 5 MEDICAL NAL IMAGING ASS ECHO 17150 [facility] TTHRC R-T 4 [facility] 2D INC INC W/WOM-MOD E COMPL SPEC&[place] [address] [facility] THYROID 4 [facility] STIMULATI INC INC NG HORMONE TSH ECG 68940 RAS JR RSA JR ROUTINE 4 DWI DWI ECG W/LEAST 12 LDS I&R ONLY RADIOLOGI 18544 [place] YA C EXAM 4 MEDICAL SHAILA CHEST 2 IMAGING VIEWS ASS FRONTAL&L ATERAL CYTP C/V 54353 BIO BIO AUTO THIN 4 REFERNCE REFERNCE LYR LABORATOR LABORATOR PREPJ SCR IES IES MNL RESCR PHYS 72448 JOSE BRADFORD DELIVERY 4 SANCHEZ MORE SERENA ONLY W/POSTPAR TG CARE NEURAXIAL 56485 [facility] OBANDO EVANGELISTA LABOR 4 ANESTH ANALG/ANE OF THE S PLND BLUE VAGINAL DELIVERY 15996 JOSE BRADFORD BIOPHYSIC 4 SANCHEZ LYONS AL PROFILE NON-STRES S TESTING LOW 741 [facility] CERVICAL 4 [facility] INC INC SECTION 23928 JOSE BRADFORD NONSTRESS 4 SANCHEZ MORE SERENA TEST CUL BACT 60525 COMBINED COMBINED XCPT 4 PHYSICIAN PHYSICIAN URINE S LA S LA BLOOD/STO OL AEROBIC ISOL XTRNL ECG 43245 [facility] & 48 HR 4 [facility] RECORDING INC INC EXTERNAL 43505 [facility] ECG 4 [facility] SCANNING INC INC ANALYSIS REPORT XTRNL ECG 57294 [facility] KARIMI 4 [facility] S RHYTHM P W/I&R UP TO 48 HRS THYROID 21237 [facility] HORM 4 [facility] UPTK/THYR INC [place] [address] [facility] THYROID 4 [facility] STIMULAT[place] [address] [facility] THYROXINE 4 [facility] TOTAL INC INC ECG [address] [facility] BRO BRO ECG W/LEAST 12 LDS I&R ONLY CUL 16644 JOSE BRADFORD PRSMPTV 4 SANCHEZ MORE SERENA PTHGNC ORGANISM SCRN W/COLONY ESTIMJ PARTICLE 34329 [facility] AGGLUTINA 4 [facility] TION INC INC SCREEN EACH ANTIBODY URNLS DIP 19945 [facility] 4 [facility] STICK/TAB INC INC LET REAGENT AUTO MICROSCOP Y FTL 75078 [facility] FIBRONECT 4 [facility] IN INC INC CERVICOVA G SECRETION S SEMI-LINDA 33055 [facility] NONSTRESS 4 [facility] TEST INC INC BLOOD 99692 [facility] COUNT 4 [facility] COMPLETE INC INC AUTO&AUTO DIFRNTL WBC GLUCOSE 14542 [facility] POST 4 [facility] GLUCOSE INC INC DOSE US PREG 38421 JOSE BRADFORD UTERUS 4 SANCHEZ LYONS AFTER 1ST TRIMEST GESTATION GONADOTRO 48762 [facility] PIN 4 [facility] CHORIONIC INC INC QUANTITAT ARLETTE ALPHA-FET 98401 [facility] OPROTEIN 4 [facility] [place] [address] [facility] ESTRIOL 4 [facility] INC INC URNLS DIP 26850 [facility] 3 [facility] STICK/TAB INC INC LET REAGENT AUTO MICROSCOP Y US PREG 83128 JOSE BRADFORD UTERUS 3 SANCHEZ LYONS REAL TIME W/IMAGE DCMTN TRANSVAG RADEX 86732 [facility] SEQUEIRAON SPINE 3 [facility] CERVICAL INC INC 2 OR 3 VIEWS RADIOLOGI 49825 T[facility] C 3 [facility] EXAMINATI INC INC ON KNEE 1/2 VIEWS GROUND A0425 [facility] PER SERVICE SERVICE STATUTE MILE AMBULANCE A0429 [facility] 3 AMBULANCE AMBULANCE BLS SERVICE SERVICE EMERGENCY TRANSPORT IAADIADOO 24285 JOSE BRADFORD 3 SANCHEZ LYONS TRICHOMON VAGINALIS IADNA 99594 BIO BIO CHLAMYDIA 3 REFERNCE REFERNCE LABORATOR LABORATOR TRACHOMAT IES IES IS AMPLIFIED PROBE TQ IADNA 73188 JOSE BRADFORD HERPES 3 SANCHEZ LYONS SIMPLX VIRUS DIRECT PROBE TQ IADNA 08061 BIO BIO HERPES 3 REFERNCE REFERNCE SOMPLX LABORATOR LABORATOR VIRUS IES IES AMPLIFIED PROBE TQ IADNA 57395 JOSE BRADFORD NEISSERIA 3 SANCHEZ MORE SERENA GONORRHOE AE DIRECT PROBE TQ IADNA 19592 BIO BIO NEISSERIA 3 REFERNCE REFERNCE LABORATOR LABORATOR GONORRHOE IES IES AE AMPLIFIED PROBE TQ IADNA NOS 73323 BIO BIO 3 REFERNCE REFERNCE AMPLIFIED LABORATOR LABORATOR PROBE TQ IES IES EACH ORGANISM CYTP C/V 46619 BIO BIO AUTO THIN 3 REFERNCE REFERNCE LYR LABORATOR LABORATOR PREPJ SCR IES IES MNL RESCR PHYS CULTURE 84144 JOSE Costello CHLAMYDIA 3 SANCHEZ BRADFORD MD ANY SOURCE IADNA 60207 BIO BIO SIMON 3 REFERNCE REFERNCE SPECIES LABORATOR LABORATOR AMPLIFIED IES IES PROBE TQ IADNA 96727 BIO BIO GARDNEREL 3 REFERNCE REFERNCE LA LABORATOR LABORATOR VAGINALIS IES IES AMPLIFIED PROBE TQ URINE 01879 RADHA RADHA 3 [facility] TEST DEPT DEPT VISUAL COLOR CMPRSN METHS Encounters Encounter Start End Date Code Location Performer Type Date OFFICE 00375 [facility] 7 7 HEALTH T VISIT SOLUTIONS 25 IN MINUTES OFFICE 15797 [facility] 7 7 HEALTH T VISIT SOLUTIONS 25 IN MINUTES [facility] - 7 7 [facility] OUTPATIEN INC T EMERGENCY 90054 [facility] 7 7 PHYSICIAN DEPARTMEN S, PLLC T VISIT HIGH/URGE NT SEVERITY EMERGENCY 04780 [facility] 7 7 [facility] DEPARTMEN INC T VISIT MODERATE SEVERITY [facility]OSP[facility] - 7 7 [facility] OUTPATIEN INC T OFFICE 14351 [facility] 7 7 HEALTH T VISIT SOLUTIONS 25 IN MINUTES OFFICE 13719 ETHAN LÓPEZ OUTPATIEN 7 7 HEALTH T VISIT SOLUTIONS 15 IN MINUTES OFFICE 18813 [facility] OUTPATIEN 7 7 PHYSICIAN T VISIT S GROUP 25 MINUTES OFFICE 67491 [facility] CONSULTAT 7 7 PHYSICIAN ION S GROUP NEW/ESTAB PATIENT 40 MIN [facility]OSPITAL [facility] - 7 7 [facility] OUTPATIEN INC T OFFICE 99025 ETHAN LÓPEZ OUTPATIEN 7 7 HEALTH T VISIT SOLUTIONS 25 IN MINUTES OFFICE 90565 [facility] OUTPATIEN 7 7 PHYSICIAN T VISIT S GROUP 15 MINUTES HOSPITAL [facility] - 7 7 [facility] OUTPATIEN INC T OFFICE 66420 [facility] OUTPATIEN 7 7 PHYSICIAN T VISIT S GROUP 10 MINUTES OFFICE 10361 ETHAN LÓPEZ OUTPATIEN 7 7 HEALTH T VISIT SOLUTIONS 15 IN MINUTES [facility]PITAL [facility] - 7 7 [facility] OUTPATIEN INC T EMERGENCY 45242 [facility] 7 7 [facility] DEPARTMEN INC T VISIT HIGH/URGE NT SEVERITY OFFICE 41608 ETHAN LÓPEZ OUTPATIEN 7 7 HEALTH T VISIT SOLUTIONS 25 IN MINUTES EMERGENCY 16191 [facility] 7 7 PHYSICIAN VISIT S, PLLC HIGH SEVERITY& THREAT FUNJ [facility]OSPITAL [facility] - 7 7 [facility] OUTPATIEN INC T EMERGENCY 76135 [facility] DE[facility] 7 7 PHYSICIAN VISIT S, PLLC HIGH SEVERITY& THREAT FUNCJ OFFICE 97095 [facility] OUTPATIEN 7 7 PHYSICIAN T VISIT S GROUP 15 MINUTES OFFICE 06000 ETHAN LÓPEZ OUTPATIEN 7 7 HEALTH T VISIT SOLUTIONS 25 IN MINUTES OFFICE 45955 [facility] 7 7 [facility] T VISIT MEDICAL 10 G MINUTES HOSPITAL [facility] - 6 6 [facility] OUTPATIEN INC [facility] - 6 6 [facility] - 6 6 [facility] - 6 6 [facility] - 6 6 [facility] - 6 6 [facility] OUTPATIEN [facility] OFFICE 31139 [facility] OUTPATIEN 6 6 PHYSICIAN SERENA T VISIT S GROUP 15 MINUTES OFFICE 09391 [facility] OUTPATIEN 6 6 PHYSICIAN SERENA T VISIT S GROUP 15 MINUTES OFFICE 15748 [facility] OUTPATIEN 6 6 PHYSICIAN SERENA T VISIT S GROUP 25 MINUTES OFFICE 48799 [facility] OUTPATIEN 6 6 PHYSICIAN SERENA T VISIT S GROUP 15 MINUTES HOSPITAL [facility] - 6 6 [facility] OUTPATIEN [facility] OFFICE 81796 [facility] OUTPATIEN 6 6 PHYSICIAN SERENA T VISIT S GROUP 25 MINUTES OFFICE 76405 [facility] OUTPATIEN 6 6 PHYSICIAN SERENA T VISIT S GROUP 25 MINUTES HOSPITAL [facility] - 6 6 [facility] OUTPATIEN [facility] OFFICE 48588 JOSE BRADFORD OUTPATIEN 6 6 SANCHEZ MORE SERENA T VISIT 25 MINUTES HOSPITAL [facility] - 6 6 [facility] OUTPATIEN INC T OFFICE 37383 JOSE ANNAPEL OUTPATIEN 6 6 SANC[facility]Z MORE SERENA T VISIT 15 MINUTES OFFICE 80981 RADHA LÓPEZ OUTPATIEN 6 6 [facility] T VISIT URGENT 25 TREAT MINUTES EMERGENCY 09221 NWAUCHE NWAUCHE DEPT 6 6 [facility] VISIT HIGH SEVERITY& THREAT FUN OFFICE 14139 JOSE BRADFORD OUTPATIEN 6 6 SANCHEZ LYONS T VISIT 15 MINUTES HOSPITAL [facility] - 6 6 [facility] OUTPATIEN INC T OFFICE 63473 [facility] OUTPATIEN 6 6 PHYSICIAN SERENA T VISIT S GROUP 25 MINUTES EMERGENCY 29636 [facility] VORKPOR 5 5 [facility] T VISIT HIGH/URGE NT SEVERITY EMERGENCY 50451 [facility] V[facility] DEPT [address] [facility] VISIT HIGH SEVERITY& THREAT [facility] [place] [facility] 5 5 [facility] T EMERGENCY 08078 ALFARIS ALFARIS DEPT 5 5 [facility] VISIT HIGH SEVERITY& THREAT FUN EMERGENCY 32669 SWINEY SWINEY DEPT 5 5 PAT PAT VISIT HIGH SEVERITY& THREAT FUN OFFICE 11755 [facility] 5 [facility] VISIT MEDICAL 15 G MINUTES [facility] - 5 5 [facility] OUTPATIEN INC T OFFICE 44525 [facility] OUTPATIEN 5 5 [facility] VISIT MEDICAL 15 G MINUTES [facility]OSPITAL [facility] - 5 5 [facility] OUTPATIEN INC T OFFICE 45556 JOSE BRADFORD OUTPATIEN 5 5 SANCHEZ LYONS T VISIT 15 MINUTES HOSPITAL [facility] - 5 5 [facility] OUTPATIEN INC T OFFICE 27812 JOSE BRADFORD OUTPATIEN 5 5 SANCHEZ LYONS T VISIT 15 MINUTES OFFICE 51507 JOSE BRADFORD OUTPATIEN 5 5 SANCHEZ LYONS T VISIT 15 MINUTES [facility]OSPITAL [facility] - 4 4 [facility] OUTPATIEN INC T OFFICE 69639 [facility] F[facility] OUTPATIEN 4 4 [facility] T VISIT MEDICAL 15 G MINUTES HOSPITAL [facility] - 4 4 [facility] OUTPATIEN INC T EMERGENCY 54346 [facility] VANEGAS 4 4 [facility] T VISIT P LOW/MODER SEVERITY OFFICE 00933 JOSE BRADFORD OUTPATIEN 4 4 SANCHEZ LYONS T VISIT 15 MINUTES HOSPITAL [facility] - 4 4 [facility] INPATIENT INC OFFICE 15481 JOSE VALDOVINOSL OUTPATIEN 4 4 SANCHEZ MORE SERENA T VISIT 15 MINUTES OFFICE 10175 JOSE ANNAPEL OUTPATIEN 4 4 [facility] MORE SERENA T VISIT 15 MINUTES OFFICE 76298 JOSE BRADFORD OUTPATIEN 4 4 S[facility] MORE SERENA T VISIT 15 MINUTES OFFICE 92933 JOSE ANNAPEL OUTPATIEN 4 4 SANCHEZ LYONS T VISIT 15 MINUTES OFFICE 54259 AGGIE MARCIAL OUTPATIEN 4 4 TEGAN TEGAN T VISIT 15 MINUTES [facility]PITAL [facility] - 4 4 [facility] OUTPATIEN INC T OFFICE 46763 AGGIE MARCIAL OUTPATIEN 4 4 TEGAN TEGAN T VISIT 15 MINUTES [facility]PITAL [facility] - 4 4 [facility] OUTPATIEN INC T EMERGENCY 31297 [facility] 4 4 BRO BRO VISIT HIGH SEVERITY& THREAT [facility] - 4 4 [facility] OUTPATIEN INC T OFFICE 81285 JOSE R HARPEL OUTPATIEN 4 4 SANCHEZ LYONS T VISIT 15 MINUTES HOSPITAL [facility] - 4 4 [facility] OUTPATIEN INC T OFFICE 61945 JOSE R HARPEL OUTPATIEN 4 4 S[facility] MORE SERENA T VISIT 15 MINUTES OFFICE 02791 JOSE R HARPEL OUTPATIEN 4 4 SANCHEZ MORE SERENA T VISIT 15 MINUTES OFFICE 44172 JOSE R HARPEL OUTPATIEN 4 4 SANCHEZ MORE SERENA T VISIT 15 MINUTES [facility]OSPITAL [facility] - 4 4 [facility] OUTPATIEN INC T OFFICE 37937 JOSE Costello [facility] OUTPATIEN 4 4 SANC[facility]Z MORE SERENA T VISIT 15 MINUTES OFFICE 60471 JOSE ANNAPEL OUTPATIEN 4 4 S[facility]Z MORE SERENA T VISIT 15 MINUTES [facility]PITAL [facility] - 4 4 [facility] OUTPATIEN INC T OFFICE 07292 JOSE ANNAPEL OUTPATIEN 4 4 SANCHEZ MORE SERENA T VISIT 15 MINUTES OFFICE 66523 JOSE ANNAPEL OUTPATIEN 4 4 SANCHEZ LYONS T VISIT 15 MINUTES Emergency REYES Tolu Gallagher (ER) 3 12:32 3 12:46 [facility] EMERGENCY 64442 NANCY GALLAGHER DEPT 3 3 EMERGENCY III [facility] VISIT SERVICES HIGH SEVERITY& THREAT [facility] - 3 3 [facility] OUTPATIEN INC T EMERGENCY 68376 [facility] 3 3 [facility] DEPARTMEN INC T VISIT LOW/MODER SEVERITY OFFICE 03991 JOES ANNAPEL OUTPATIEN 3 3 SANC[facility]Z LYONS T VISIT 15 MINUTES PERIODIC 10214 JOSE BRADFORD PREVENTIV 3 3 SANCHEZ MORE SERENA E MED EST PATIENT 18-39 YRS OFFICE 51742 RADHA YOUNG 3 3 [place] [address] DEPT DEPT MINUTES
--- OUTSIDE RECORDS SUMMARY | 2017-07-27 16:58 | External Medical Summary Rpt | CCD ---
Author Author , ARGELIA Organization ARGELIA Address Unknown Phone [email or web address] Care Team Providers Care Senior Engineering Tech Name Role Phone ALFARIS MOH, ALFARIS Unavailable Unavailable MOH ALFARIS MOH, ALFARIS Unavailable Unavailable MOH HUTTON BRO, HUTTON Unavailable Unavailable BRO HUTTON BRO, HUTTON Unavailable Unavailable BRO BESSON NELLY, BESSON Unavailable Unavailable NELLY [facility] Unavailable [facility]available [facility], [facility] Unavailable Unavailable [facility]IES, [facility] RAMSEY, RAMSEY Unavailable Unavailable RAMSEY ALL, RAMSEY ALL Unavailable Unavailable [facility] Unavailable Unavailable [facility] Unavailable Unavailable SERVICE, [facility] Unavailable Unavailable SERVICE, [facility] CHEN JAM, CHEN JAM Unavailable Unavailable MARCIAL TEGAN, MARCIAL Unavailable Unavailable TEGAN [facility], Unavailable Unavailable [facility] Unavailable Unavailable [facility], [facility] Unavailable Unavailable [facility], [facility] Unavailable Unavailable THE BLUE, [facility] COOK, COOK Unavailable Unavailable YA, YA Unavailable Unavailable YA SHAILA, Unavailable Unavailable YA SHAILA OBANDO EVANGELISTA, OBANDO EVANGELISTA Unavailable Unavailable FALLUJI BROWN, FALLUJI Unavailable Unavailable BROWN FEEBACK REE, FEEBACK Unavailable Unavailable REE ROMINA, ROMINA Unavailable Unavailable ROMINA TREY, ROMINA Unavailable Unavailable TREY JOSE BRADFORD MD, Unavailable Unavailable JOSE BRADFORD MD VETO RHO, VETO Unavailable Unavailable RHO HARPEL, HARPEL Unavailable Unavailable HARPEL SERENA, HARPEL Unavailable Unavailable SERENA [facility] Unavailable Unavailable INC, [facility] Unavailable Unavailable HOSPITAL P, [facility] P [facility], Unavailable Unavailable [facility] RENE LÓPEZ Unavailable Unavailable RENE BULLARD, RENE Unavailable Unavailable [facility] Unavailable Unavailable IMAGING [facility], [facility] Unavailable Unavailable MEDICAL G, [facility] Un[facility], [facility] Unavailable Unavailable HOLDINGS, [facility] RAS JR, RAS JR Unavailable Unavailable RAS JR DWI, RAS Unavailable Unavailable JR DWI RAS JR DWI, RAS Unavailable Unavailable JR DWI NANCY GRE, Unavailable Unavailable ANNCY GRE NANCY GRE, Unavailable Unavailable NANCY GRE [facility] Unavailable Unavailable SERVICES, [facility] Unavailable Unavailable DEPT, [facility] DEPT [facility] Unavailable Unavailable [facility], [facility] Unavailable Unavailable URGENT TREAT, [facility] [place] [facility] Unavailable Unavailable [facility] Unavailable Un[facility], Unavailable Unavailable PLLC, [facility] AMADEO, AMADEO Unavailable Unavailable RENUSCH, RENUSCH Unavailable Unavailable SCALF JED, SCALF JED Unavailable Unavailable MICHAELA, MICHAELA Unavailable Unavailable MICHAELA SHE, Unavailable Unavailable MICHAELA SHE [employer] [facility] [employer] Unavailable Unavailable SOLUTIONS IN, [facility] [...] Diagnosis DOS Provider Status [id number] ATOPIC 06-03-2017 [facility] NEURODERMAT HEALTH ITIS SOLUTIONS IN R12 HEARTBURN 06-03-2017 [facility] IN G2581 RESTLESS 05-13-2017 [facility] LEGS HEALTH SYNDROME SOLUTIONS IN N63 UNSPECIFIED 05-13-2017 [facility] LUMP IN HEALTH BREAST SOLUTIONS IN [id number] STRAIN UNS 05-13-2017 [facility] [email or web address] WRIST HAND SOLUTIONS LEVEL UNS IN INITIAL K219 GASTRO-ESOP 05-12-2017 [facility]UX [facility] DISEASE INC WITHOUT ESOPHAGITIS P47643 OT 05-12-2017 [facility] SYMPTOMS & MEDICAL SIGNS IMAGING ASS INVOLV MUSCULOSKEL ETAL SYS Z06004V UNSPECIFIED 05-12-2017 [facility], LEFT WRIST PLLC INITIAL ENCOUNTER Z720 TOBACCO USE 05-12-2017 [facility] INC N644 MASTODYNIA 05-04-2017 [facility] R109 UNSPECIFIED 05-04-2017 [facility] ABDOMINAL MEDICAL PAIN IMAGING ASS K5900 CONSTIPATIO 04-01-2017 [facility] N HEALTH UNSPECIFIED SOLUTIONS IN K8080 OTHER 03-22-2017 [facility] CHOLELITHIA PHYSICIANS SIS WITHOUT GROUP OBSTRUCTION N951 MENOPAUSAL 03-22-2017 [facility] AND FEMALE PHYSICIANS CLIMACTERIC GROUP STATES R1013 EPIGASTRIC 03-15-2017 [facility] PAIN PHYSICIANS GROUP R198 OTH SPEC SX 03-15-2017 [facility] & SIGNS PHYSICIANS INVLV THE GROUP DIGESTV SYS & ABD R110 NAUSEA 2017 [facility] R140 ABDOMINAL 2017 [facility] DISTENSION MEDICAL GASEOUS IMAGING ASS P56208 PAIN IN 03-03-2017 [facility] RIGHT LEG HEALTH SOLUTIONS IN L99012 PAIN IN 03-03-2017 [facility] LEFT LEG HEALTH SOLUTIONS IN R6882 DECREASED 02-05-2017 [facility] LIBIDO PHYSICIANS GROUP R0600 DYSPNEA 02-03-2017 [facility] UNSPECIFIED HEALTH SOLUTIONS IN R635 ABNORMAL 02-03-2017 [facility] WEIGHT GAIN HEALTH SOLUTIONS IN R1010 UPPER 02-02-2017 [facility] ABDOMINAL PHYSICIANS, PAIN PLLC UNSPECIFIED Z888 ALLERGY 02-02-2017 [facility] STATUS OT [facility] RX MEDS & INC BIOLOG SUBSTANC STS K1121 ACUTE 01-21-2017 [facility] SIALOADENIT HEALTH IS SOLUTIONS IN R000 TACHYCARDIA 01-21-2017 [facility] UNSPECIFIED MEDICAL G R002 PALPITATION 01-21-2017 [facility] MEDICAL G R1084 GENERALIZED 01-21-2017 [facility] ABDOMINAL HEALTH PAIN SOLUTIONS IN N736 FEMALE 09-29-2016 [facility] P ADHESIONS POSTINFECTI VE R102 PELVIC AND 09-29-2016 COMMUNITY PERINEAL ANESTH OF PAIN THE BLUE N390 URINARY 09-01-2016 [facility] TRACT PHYSICIANS INFECTION GROUP SITE NOT SPECIFIED N3001 ACUTE 08-14-2016 [facility] CYSTITIS PHYSICIANS WITH GROUP HEMATURIA D259 LEIOMYOMA 08-04-2016 [facility] U[facility]US [facility] UNSPECIFIED N72 INFLAMMATOR 08-04-2016 [facility] Y DISEASE LLC OF CERVIX UTERI N938 OTHER SPEC 08-04-2016 [facility] ABNORMAL PHYSICIANS UTERINE & GROUP VAGINAL BLEEDING N939 ABNORMAL 08-04-2016 [facility] UTERINE & ANESTH OF VAGINAL THE BLUE BLEEDING UNSPECIFIED N761 SUBACUTE 07-31-2016 [facility] AND CHRONIC PHYSICIANS VAGINITIS GROUP N920 EXCESS & 07-31-2016 [facility] FREQUENT [facility] MENSTRUATIO INC N W/REGULAR CYCLE V00112 ENCOUNTER 07-31-2016 [facility] FOR OTHER MEM [facility] PREPROCEDUR INC AL EXAMINATION K5289 OTH SPEC 06-18-2016 [facility] NONINFECTIV PHYSICIANS E GROUP GASTROENTER ITIS & COLITIS Z0100 ENCOUNTER 03-20-2016 [facility] EXAM EYES & GRE VISION W/O ABNORMAL FIND R0602 SHORTNESS 11-22-2015 [facility] [place] OF BREATH RADIOLOGY K210 GASTRO-ESOP 11-14-2015 [facility] REFLUX URGENT DISEASE W/ TREAT ESOPHAGITIS M545 LOW BACK 11-14-2015 [facility] URGENT TREAT N831 CORPUS 10-31-2015 JOSE Costello LUTEUM CYST SANCHEZ MORE N9489 OTH COND 10-31-2015 JOSE Costello ASSOC W/FE SANCHEZ MORE GEN ORGN & MENSTRUAL CYCL 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 J70871 PAIN IN 08-15-2015 [facility] LEFT WRIST P9452DA UNSPECIFIED 08-15-2015 [facility] [place] INJURY [place] RADIOLOGY WRIST HAND FINGERS INITIAL N201 CALCULUS OF 07-28-2015 [facility] URETER N23 UNSPECIFIED 07-28-2015 [facility] RENAL COLIC N3000 ACUTE 07-28-2015 [facility] CYSTITIS WITHOUT HEMATURIA 0340 STREPTOCOCC 06-12-2015 [place] SORE [facility]OS[facility] 78629 OTHER CHEST 06-12-2015 [facility] MOH PAIN V148 PERSONAL 06-12-2015 [place] HISTORY [facility] ALLERGY [facility] HOSPITAL SPEC MEDICINAL AGTS 62350 VOLUME 06-11-2015 [facility] PAT DEPLETION UNSPECIFIED 2768 HYPOPOTASSE 06-11-2015 [facility] PAT CICI 31634 CHEST PAIN 06-11-2015 [facility] [place] UNSPECIFIED RADIOLOGY 66796 PAINFUL 06-11-2015 [facility] PAT RESPIRATION 46947 OTHER 06-07-2015 [facility] DYSRHYTHMIA S 7851 PALPITATION 06-07-2015 [facility] G V1259 PERS HX, 06-04-2015 RAS [place] OTHER DWI DISEASES OF CIRCULATORY SYSTEM 6259 UNSPEC 02-19-2015 COMM[facility]ITY SYMPTOM ANESTH OF ASSOC THE BLUE W/FEMALE GENITAL ORGANS V7283 OTHER 02-11-2015 [facility] SPECIFIED [facility] PRE-OPERATI INC VE EXAMINATION 6238 OTHER 02-08-2015 [facility] SPECIFIED MEDICAL NONINFLAMMA IMAGING ASS TORY DISORDER VAGINA 6262 EXCESSIVE 02-04-2015 JOSE Costello OR FREQUENT SANCHEZ MORE MENSTRUATIO N 7850 UNSPECIFIED 10-02-2014 [facility] 4279 UNSPECIFIED 09-15-2014 [facility] CARDIAC MEDICAL DYSRHYTHMIA IMAGING ASS V242 ROUTINE 06-07-2014 [facility] FOLLOW-UP LABORATORIE S 5990 URINARY 05-25-2014 JOSE Costello TRACT SANCHEZ MORE INFECTION SITE NOT SPECIFIED 24672 TRANSIENT 05-01-2014 JOSE BRADFORD MD N OF W/DELIVERY 09407 FETOPELVIC 05-01-2014 JOSE Costello DISPROPORTI SANCHEZ MORE ON, DELIVERED 87125 PRIMARY 05-01-2014 COMM[facility]ITY UTERINE ANESTH OF INERTIA [place] ROSS WITH DELIVERY 02109 C/S DELIV 05-01-2014 JOSE Costello W/O INDICAT SANCHEZ MORE DELIV W/WO ANTPRTM COND V270 OUTCOME OF 05-01-2014 JOSE Costello DELIVERY SANCHEZ MORE SINGLE LIVEBORN 25195 MILD OR 04-30-2014 [facility] UNSPECIFIED [facility] INC PRE-ECLAMPS IA WITH DELIVERY V221 SUPERVISION 04-30-2014 JOSE Costello OF OCTAVIO BRADFORD MD NORMAL 12108 TRANSIENT 04-26-2014 JOSE BRADFORD MD N OF ANTEPARTUM V220 SUPERVISION 04-09-2014 [facility] [address] OTHER 03-27-2014 ANNI MARIE SPECIFED COMPLICATIO N ANTEPARTUM V286 SCREENING 03-23-2014 [facility] [place] [address] THREATENED 03-21-2014 [facility] PREMATURE [facility] LABOR INC ANTEPARTUM V771 SCREENING 02-03-2014 [facility] FOR [facility] DIABETES INC MELLITUS V2889 OTHER 12-07-2013 [facility] SPECIFIED [facility] INC SCREENING 83019 PAIN IN 09-14-2013 [facility], AMBULANCE LOWER LEG SERVICE 8449 SPRAIN&STRA 09-14-2013 [facility] IN OF EMERGENCY UNSPECIFIED SERVICES SITE OF KNEE&LEG 8470 NECK SPRAIN 09-14-2013 [facility] AND STRAIN EMERGENCY SERVICES 9222 CONTUSION 09-14-2013 [facility] ABDOMINAL INC WALL E8120 OTH MOTR 09-14-2013 [facility] EMERGENCY W/MOTR SERVICES VEH-INJR MV HOTEL SERVICES SUPERVISOR E8150 OTH MOTR 09-14-2013 [facility] AMBULANCE W/OBJ SERVICE HIWAY-INJUR ING HOTEL SERVICES SUPERVISOR V222 09-14-2013 [facility] INCIDENTAL INC V704 EXAMINATION 09-05-2013 [facility] MEDICOLEGAL LABORATORIE REASON S V7231 ROUTINE 09-05-2013 JOSE BRADFORD MD AL EXAMINATION V2509 [facility] GENERAL 08-30-2013 [facility] HEALTH CNSL&ADVICE DEPT CONTRACEPT MANAGEMENT V2689 OTHER 08-30-2013 [facility] SPECIFIED HEALTH PROCREATIVE DEPT MANAGEMENT V7242 08-30-2013 [facility] EXAMINATION HEALTH OR TEST DEPT POSITIVE [...] 77 LE RA 30 17 [address] DE UG S 10 [...] 07 08 60 30 00 CA Ac IL 46 -1 -1 .0 00 RL ti [...] 17 17 24 FA LE 0 43 AR LY SO D [address] DR BLETRAN 40 MG TA B GA 68 05 [...] 17 17 24 FA LE 0 43 AR LY SO D [address] DR BELTRAN 40 [...] 25 17 17 23 FA 0 61 AR HC LY L 10 DR UG MG [...] 17 17 13 FA 2 2 77 AR MG LY TA DR BL UG ET LE 68 04 05 10 10 00 WA Ac VO 38 -1 -1 .0 00 L- ti FL 20 2 07 MA ve OX 01 20 20 40 RT AC 60 17 17 38 IN 1 99 PH AR 50 MA 0 CY MG #4 TA 93 BL ET OM 60 04 05 30 GA Ac EP 50 -0 -0 .0 00 L- ti RA 50 7 5 07 MA ve ZO 14 20 20 40 RT LE 60 17 [address] AR MA 40 CY MG #4 93 CA PS UL E AT 00 04 30 30 00 GA Ac EN 78 -0 -2 .0 00 [...] GA 53 03 03 90 30 00 GA Ac BA 74 -0 -3 .0 00 L- ti PE 60 4- 1- 00 07 MA ve NT 10 20 20 39 RT IN 20 17 17 11 5 64 PH 30 AR 0 MA MG CY CA #4 PS 93 UL E OM 60 03 03 30 30 00 GA Ac EP 50 -0 -3 .0 00 L- ti RA 50 8- 1- 00 07 MA ve ZO 14 20 20 37 RT LE 60 17 17 [address] AR MA 40 CY MG #4 93 CA PS UL E AT 00 02 03 45 30 00 GA Ac EN 78 -2 -2 .0 00 L- ti OL 11 4- 4- 00 07 MA ve OL 07 20 20 37 RT 80 17 17 71 25 1 63 PH AR MG MA CY TA BL #4 ET 93 CE 16 02 03 30 30 00 GA Ac TI 57 -0 -0 .0 00 L- ti RI 10 6- 3- 00 08 MA ve ZI 40 20 20 83 RT NE 25 17 17 92 0 21 PH HC AR L MA 10 CY MG #4 93 TA BL ET PA 68 02 03 30 30 00 GA Ac RO 38 -0 -0 .0 00 L- ti XE 20 6- 3- 00 07 MA ve TI 00 20 20 39 RT NE 10 17 17 10 6 20 PH HC AR L MA 40 CY MG #4 93 TA BL ET FL 60 02 03 32 60 00 GA Ac UT 43 -0 -0 .0 00 L- ti IC 20 6- 3- 00 07 MA ve 26 20 20 39 RT ON 41 17 17 10 E 5 23 PH IL AR OP MA CY 50 #4 MC 93 G SP RA Y GA 53 02 03 90 30 00 GA Ac BA 74 -0 -0 .0 00 L- ti PE 60 6- 3- 00 07 MA ve NT 10 20 20 39 RT IN 20 17 17 11 5 64 PH 30 AR 0 MA MG CY CA #4 PS 93 UL E FL 55 02 03 1. 1 00 GA Ac UC 11 -0 -0 00 00 [...] FI 00 01 02 60 30 00 GA Ac BE 00 -2 -2 .0 00 L- ti RC 52 9- 4- 00 08 MA ve ON 50 20 20 83 RT 02 17 17 76 62 3 04 PH 5 AR MG MA CY CA PL #4 ET 93 GA 16 01 02 60 30 00 GA Ac BA 71 -1 -1 .0 00 L- ti PE 40 4- 0- 00 07 MA ve NT 50 20 20 38 RT IN 40 17 17 50 2 72 PH 30 AR 0 MA MG CY CA #4 PS 93 UL E OM 60 01 02 30 30 00 GA Ac EP 50 -1 -0 .0 00 L- ti RA 50 1- 3- 00 07 MA ve ZO 14 20 20 37 RT LE 60 17 17 [address] AR MA 40 CY MG #4 93 CA PS UL E PA 54 01 01 30 30 00 GA Ac RO 45 -0 -2 .0 00 [...] AT 00 12 01 45 30 00 GA Ac EN 78 -1 -1 .0 00 [...] 16 17 14 FA ON 1 52 AR E LY [address] UG TA BL ET GA 67 12 01 30 10 00 SO Ac BA 87 -0 -0 .0 00 PE ti PE 70 8- 9- 00 00 RS ve NT 22 20 20 55 IN 30 16 17 01 FA 5 24 AR [address] UG CA [...] TOBACCO 7 HEALTH SMOKER SOLUTIONS IN APPLICATI 90835 [facility] ON SHORT 7 [facility] ARM INC INC SPLINT FOREARM-H AND STATIC RADEX 88316 [facility] RENUSC WRIST 7 PHYSICIAN COMPLETE S, PLLC MINIMUM 3 VIEWS US BREAST 03533 [facility] UNI REAL 7 [facility] TIME INC INC WITH IMAGE COMPLETE US BREAST 25200 [facility] UNI REAL 7 MEDICAL [place] [address] [facility] ROXY TRACT UPR 7 MEDICAL W/SM INT IMAGING W/MULT ASS SERIAL IMAGES RAD EXP G9500 [facility] RAMSEY INDICES/E 7 MEDICAL XP TM & IMAGING NUMB ASS FLUORO IMAGES DOC FINAL G9551 [facility] ROXY REPR ABD 7 MEDICAL IMAG STS IMAGING W/[place] [address] [facility] ABDOMINAL 7 [facility] REAL INC [place] [address] ANTHONY RAMSEY ABDOMINAL 7 MEDICAL REAL IMAGING TIME ASS W/IMAGE LIMITED COLLECTIO 83215 [facility] N VENOUS 7 [facility] [place] [address] [facility] THYROID 7 [facility] STIMULATI INC INC NG HORMONE TSH GONADOTRO 49685 [facility] PIN 7 [facility] MEM [facility] LUTEINIZI INC INC NG HORMONE GONADOTRO 96110 [facility] PIN 7 [facility] FOLLICLE [place] [address] [facility] TESTOSTER 7 [facility] ONE FREE INC INC CURRENT 1034F ETHAN LÓPEZ TOBACCO 7 [place] [address] [facility] LIPASE 7 [place] [address] [facility] AMYLASE 7 [facility] HOS[facility]OS[facility] INC INC BODY MASS 3008F ETHAN LÓPEZ INDEX 7 HEALTH DOCUMENTE SOLUTIONS D IN BLOOD 92658 [facility] COUNT 7 [facility] COMPLETE INC INC AUTO&AUTO DIFRNTL WBC GENERAL 59974 LAB THAI LAB THAI HEALTH 7 SAIM SAMI PANEL [facility] COLLECTIO 02477 ETHAN LÓPEZ N VENOUS 7 HEALTH BLOOD SOLUTIONS VENIPUNCT IN URE COMPREHEN 21671 [facility] SIVE 7 [facility] HOS[facility] METABOLIC INC INC PANEL TOBACCO 1000F ETHAN LÓPEZ USE 7 [place] [address] [facility] INFUSION 7 [facility] THERAPY/P INC INC ROPHYLAXI S /DX 1ST TO 1 HR THERAPEUT 43168 [facility] IC 7 [facility]OS[facility] INJECTION INC INC IV PUSH EACH NEW DRUG THERAPEUT 84319 [facility] IC 7 [facility] INJECTION INC INC IV PUSH EACH NEW DRUG FINAL G9638 MARISELTONIEOlamide RAMSEY REPORTS 7 MEDICAL W/O DOC IMAGING 1/MORE ASS DOSE REDUCTION TECH FINAL G9551 ANTHONY RAMSEY REPR ABD 7 MEDICAL IMAG STS IMAGING W/O ASS INCIDNT [place]: [place] [address] [facility] LIPASE 7 [place] [address] ANTHONY RAMSEY ABDOMEN & 7 MEDICAL PELVIS IMAGING W/O ASS CONTRAST MATERIAL ANESTHESI 98405 [facility] 6 ANESTH INTRAPERI OF THE TONEAL BLUE LOWER ABD W/LAPS NOS BASIC 17289 [facility] METABOLIC 6 [facility] PANEL INC INC CALCIUM TOTAL ECG 14474 [facility] MCGINNIS JR ROUTINE 6 [facility] W/LEAST P 12 LDS I&R ONLY COLLECTIO 33295 [facility] N VENOUS 6 [facility] BLOOD INC INC VENIPUNCT URE URNLS DIP 38753 [facility] 6 [facility] STICK/TAB INC INC LET REAGENT AUTO MICROSCOP Y BLOOD 97409 [facility] COUNT 6 [facility] COMPLETE INC INC AUTO&[place] [address] [facility] TRANSVAGI 6 [place] [address] ANTHONY RAMSEY ALL TRANSVAGI 6 MEDICAL NAL IMAGING ASS URINLS 08850 [facility] DIP 6 PHYSICIAN SERENA STICK/TAB S GROUP LET REAGNT NON-AUTO MICRSCPY CULTURE 24023 [facility] BACTERIAL 6 [facility] INC INC QUANTTATI VE COLONY COUNT URINE URINLS 07362 [facility] DIP 6 PHYSICIAN SERENA STICK/TAB S GROUP LET REAGNT NON-AUTO MICRSCPY HOSPITAL G0378 [facility] OBSERVATI 6 [facility] ON INC INC SERVICE PER HOUR HOSPITAL G0378 [facility] OBSERVATI 6 [facility]OS[facility] ON INC INC SERVICE [place] V [address] [facility], SURG 6 [facility] PATHOLOGY GROSS&TREY ROSCOPIC EXAM COLLECTIO 90685 [facility] N VENOUS 6 [facility] BLOOD INC INC VENIPUNCT URE CULTURE 03447 [facility] BACTERIAL 6 [facility]OS[facility] INC INC QUANTTATI VE COLONY COUNT URINE TOBACCO 93564 TOLUROGELIO MOT[facility] USE 6 [facility] CESSATION INC INC INTERMEDI ATE 3-10 MINUTES URNLS DIP 01972 [facility] 6 [facility] STICK/TAB INC INC LET REAGENT AUTO MICROSCOP Y BLOOD 84906 [facility] COUNT 6 [facility] HEMATOCRI INC INC T LAPS 40847 [facility] VAGINAL 6 PHYSICIAN SERENA HYSTERECT S GROUP LIZETH UTERUS 250 GM/< BLOOD 01133 [facility] COUNT 6 [facility] HEMOGLOBI INC INC N NONINVASI 98415 [facility] VE 6 [facility] EAR/PULSE INC INC OXIMETRY OVERNIGHT MONITOR ANESTHESI 21108 [facility] VAGINAL 6 ANESTH SHE OF THE HYSTERECT BLUE LIZETH INCL BIOPSY GONADOTRO 22809 [facility] PIN 6 [facility] CHORIONIC INC INC QUALITATI VE BLOOD 65988 [facility] COUNT 6 [facility] COMPLETE INC INC AUTO&AUTO DIFRNTL WBC URNLS DIP 01853 [facility] 6 [facility]OS[facility] STICK/TAB INC INC LET REAGENT AUTO MICROSCOP Y COLLECTIO 20159 [facility] N VENOUS 6 [facility] BLOOD INC INC VENIPUNCT URE SMR PRIM 30813 [facility] SRC WET 6 PHYSICIAN SERENA MOUNT S GROUP NFCT AGT THERAPEUT 96432 [facility] IC 6 PHYSICIAN SERENA PROPHYLAC S GROUP TIC/DX INJECTION SUBQ/[place] [address] [facility] ABDOMEN & 6 [facility] PELVIS INC INC W/CONTRAS T MATERIAL HGB 94769 [facility] QUANTITAT 6 PHYSICIAN SERENA ARLETTE S GROUP TRANSCUTA NEOUS THERAPEUT 63918 [facility] IC 6 PHYSICIAN SERENA PROPHYLAC S GROUP TIC/DX INJECTION SUBQ/IM OPHTH 38446 [facility] 6 GRE GRE XM&EVAL COMPRE NEW PT 1/> VST BLOOD 86210 [facility] COUNT 6 [facility] HEMATOCRI INC INC T BLOOD 29816 [facility] COUNT 6 [facility] HEMOGLOBI INC INC N INJECTION J2405 [facility] 6 [facility] ONDANSETR INC INC ON HCL PER 1 MG ANES 87368 [facility] FEEBACK HYSTEROSC 6 ANESTH REE OPY&/HYST OF THE EROSALPIN BLUE GOGRAPHY W/BX HYSTEROSC 29157 [facility] OPY BX 6 PHYSICIAN SERENA ENDOMETRI S GROUP UM&/POLYP C W/WO D&C COLLECTIO 89317 [facility] N VENOUS 6 [facility] [place]OD [place] [address] [facility], SURG 6 [facility] PATHOLOGY GROSS&TREY ROSCOPIC EXAM ECG 56451 SACHI KARIMI ROUTINE 6 NELLY NELLY ECG W/LEAST 12 LDS I&R ONLY INJECTION J0131 [facility] 6 [facility] ACETAMINO INC INC PHEN 10 MG URNLS DIP 23017 [facility] 6 [facility] STICK/TAB INC INC LET REAGENT AUTO MICROSCOP Y COLLECTIO 59314 [facility] N VENOUS 6 [facility]OSP BLOOD INC INC VENIPUNCT URE SMR PRIM 62490 JOSE BRADFORD SRC WET 6 [facility] NFCT AGT GONADOTRO 10267 [facility] PIN 6 [facility] CHORIONIC INC INC QUALITATI VE BLOOD 06714 [facility] COUNT 6 [facility] COMPLETE INC INC AUTO&AUTO DIFRNTL WBC RADIOLOGI 54158 [facility] [place] CHEN JAM C 6 RADIOLOGY EXAMINATI ON CHEST SINGLE VIEW FRONTAL RADEX 68063 NWAUCHE NWAUCHE SPINE 6 [facility] LUMBOSACR AL 2/3 VIEWS 01407 [facility] TRANSVAGI 6 [facility] NAL INC INC RADEX 16121 [facility] [place] VETO WRIST 5 RADIOLOGY RHO COMPLETE MINIMUM 3 VIEWS RADEX 32934 [facility] WRIST [address] [place] [address] [facility] [place]ET[place] ABDOMEN & 5 RADIOLOGY RHO PELVIS W/O CONTRAST MATERIAL ECG 79906 ALFARIS ALFARIS ROUTINE 5 [facility] MOH ECG W/LEAST 12 LDS I&R ONLY THERAPEUT 91785 JOAN FRANCO IC 5 [facility] TIC/DX INJECTION SUBQ/IM RADIOLOGI 57903 SWINEY SWINEY C 5 PAT PAT EXAMINATI ON CHEST SINGLE VIEW FRONTAL ECG 27148 SWINEY SWINEY ROUTINE 5 PAT PAT ECG W/LEAST 12 LDS I&R ONLY RADIOLOGI 88619 [facility] [place] SCALF JED C EXAM 5 RADIOLOGY CHEST 2 VIEWS FRONTAL&L ATERAL XTRNL ECG 42416 [facility] & 48 HR 5 [facility] RECORDING INC INC EXTERNAL 66404 [facility] ECG 5 [facility] SCANNING INC INC ANALYSIS REPORT XTRNL ECG 73114 RAS MCGINNIS JR 5 DWI DWI CONTINUOU S RHYTHM W/I&R UP TO [address] [facility] 5 ANESTH [facility]IA [facility] ABD W/LAPS NOS BLOOD 75716 [facility] COUNT 5 [facility] COMPLETE INC INC AUTO&AUTO DIFRNTL WBC URNLS DIP 90232 [facility] 5 [facility] STICK/TAB INC INC LET REAGENT AUTO MICROSCOP Y GONADOTRO 90394 [facility] PIN 5 [facility] CHORIONIC INC INC QUALITATI VE COLLECTIO 91119 [facility] N VENOUS 5 [facility] [place] [address] IDAHO DANNY JOHANNA TRANSVAGI 5 MEDICAL NAL IMAGING ASS ECHO 75286 [facility] TTHRC R-T 4 [facility] 2D INC INC W/WOM-MOD E COMPL SPEC&[place] [address] [facility] THYROID 4 [facility] STIMULATI INC INC NG HORMONE TSH ECG 66216 RAS JR RAS JR ROUTINE 4 DWI DWI ECG W/LEAST 12 LDS I&R ONLY RADIOLOGI 18245 IDAHO YA C EXAM 4 MEDICAL SHAILA CHEST 2 IMAGING VIEWS ASS FRONTAL&L ATERAL CYTP C/V 71420 BIO BIO AUTO THIN 4 REFERNCE REFERNCE LYR LABORATOR LABORATOR PREPJ SCR IES IES MNL RESCR PHYS 60225 JOSE BRADFORD DELIVERY 4 SANCHEZ MORE SERENA ONLY W/POSTPAR TG CARE NEURAXIAL 19843 [facility] OBANDO EVANGELISTA LABOR 4 ANESTH ANALG/ANE OF THE S PLND BLUE VAGINAL DELIVERY 34735 JOSE BRADFORD BIOPHYSIC 4 SANCHEZ LYONS AL PROFILE NON-STRES S TESTING LOW 741 [facility] CERVICAL 4 [facility] INC INC SECTION 00509 JOSE BRADFORD NONSTRESS 4 SANCHEZ MORE SERENA TEST CUL BACT 03020 COMBINED COMBINED XCPT 4 PHYSICIAN PHYSICIAN URINE S LA S LA BLOOD/STO OL AEROBIC ISOL XTRNL ECG 90093 [facility] & 48 HR 4 [facility] RECORDING INC INC EXTERNAL 58302 [facility] ECG 4 [facility] SCANNING INC INC ANALYSIS REPORT XTRNL ECG 10922 [facility]ARIMI 4 [facility] S RHYTHM P W/I&R UP TO 48 HRS THYROID 01976 [facility] HORM 4 [facility] UPTK/THYR INC [place] [address] [facility] THYROID 4 [facility] STIMULATI [place] [address] [facility] THYROXINE 4 [facility] TOTAL INC [facility] ECG W/LEAST 12 LDS I&R ONLY CUL 33570 JOSE BRADFORD PRSMPTV 4 SANCHEZ MORE SERENA PTHGNC ORGANISM SCRN W/COLONY ESTIMJ PARTICLE 85180 [facility] TION INC INC SCREEN EACH ANTIBODY URNLS DIP 98117 [facility] STICK/TAB INC INC LET REAGENT AUTO MICROSCOP Y FTL 21960 [facility] FIBRONECT [facility] IN INC INC CERVICOVA G SECRETION S SEMI-LINDA 33344 [facility] NONSTRESS [facility] TEST INC INC BLOOD 49052 [facility] COUNT [facility] COMPLETE INC INC AUTO&AUTO DIFRNTL WBC GLUCOSE 09919 [facility] POST [facility] GLUCOSE INC INC DOSE US PREG 61503 JOSE BRADFORD UTERUS 4 [facility] AFTER 1ST TRIMEST GESTATION GONADOTRO 41131 [facility] PIN [facility] CHORIONIC INC INC QUANTITAT ARLETTE ALPHA-FET 76778 [facility] OPROTEIN 4 [facility] [place] [address] [facility] ESTRIOL 4 [facility] INC INC URNLS DIP 86535 [facility] STICK/TAB INC INC LET REAGENT AUTO MICROSCOP Y US PREG 35141 JOSE BRADFORD UTERUS 3 [facility] REAL TIME W/IMAGE DCMTN TRANSVAG RADEX 25623 [facility] SEQUEIRAON SPINE 3 [facility] CERVICAL INC INC 2 OR 3 VIEWS RADIOLOGI 83063 [facility] C [facility] EXAMINATI INC INC ON KNEE 1/2 VIEWS GROUND A0425 [facility] PER SERVICE SERVICE STATUTE MILE AMBULANCE A0429 [facility] SERVICE 3 AMBULANCE AMBULANCE BLS SERVICE SERVICE EMERGENCY TRANSPORT IAADIADOO 42944 JOSE BRADFORD 3 [facility] TRICHOMON VAGINALIS IADNA 85213 BIO BIO CHLAMYDIA 3 REFERNCE REFERNCE LABORATOR LABORATOR TRACHOMAT IES IES IS AMPLIFIED PROBE TQ IADNA 19383 JOSE BRADFORD HERPES 3 [facility] SIMPLX VIRUS DIRECT PROBE TQ IADNA 28809 BIO BIO HERPES 3 REFERNCE REFERNCE SOMPLX LABORATOR LABORATOR VIRUS IES IES AMPLIFIED PROBE TQ IADNA 21685 JOSE BRADFORD NEISSERIA 3 [facility] GONORRHOE AE DIRECT PROBE TQ IADNA 09421 BIO BIO NEISSERIA 3 REFERNCE REFERNCE LABORATOR LABORATOR GONORRHOE IES IES AE AMPLIFIED PROBE TQ IADNA NOS 31827 BIO BIO 3 REFERNCE REFERNCE AMPLIFIED LABORATOR LABORATOR PROBE TQ IES IES EACH ORGANISM CYTP C/V 09933 BIO BIO AUTO THIN 3 REFERNCE REFERNCE LYR LABORATOR LABORATOR PREPJ SCR IES IES MNL RESCR PHYS CULTURE 23226 JOSE Costello CHLAMYDIA 3 SANC[facility] BRADFORD MD ANY SOURCE IADNA 54117 BIO BIO SIMON 3 REFERNCE REFERNCE SPECIES LABORATOR LABORATOR AMPLIFIED IES IES PROBE TQ IADNA 65254 BIO BIO GARDNEREL 3 REFERNCE REFERNCE LA LABORATOR LABORATOR VAGINALIS IES IES AMPLIFIED PROBE TQ URINE 85837 RADHA RADHA [facility] DEPT VISUAL COLOR CMPRSN METHS Encounters Encounter Start End Date Code Location Performer Type Date OFFICE 32604 [facility] EM[facility] DEPARTMENT 7 7 HEALTH T VISIT SOLUTIONS 25 IN MINUTES OFFICE 42459 [facility] 7 7 HE[facility] T VISIT SOLUTIONS 25 IN MINUTES [facility] T EMERGENCY 26657 [facility] 7 7 [facility] T VISIT HIGH/URGE NT SEVERITY EMERGENCY 44294 [facility] 7 7 [facility] T VISIT MODERATE SEVERITY [facility] T OFFICE 36420 [facility] EMERGENC[facility] DEPARTMENT 7 7 HEALTH T VISIT SOLUTIONS 25 IN MINUTES OFFICE 42583 [facility] 7 7 HEALTH T VISIT SOLUTIONS 15 IN MINUTES OFFICE 08785 [facility] OUTPATI[facility] 7 7 PHYSICIAN T VISIT S GROUP 25 MINUTES OFFICE 40456 [facility] CON[facility]ULTAT 7 7 PHYSICIAN ION S GROUP NEW/ESTAB PATIENT 40 MIN [facility] T OFFICE 52724 [facility] 7 7 HEALTH T VISIT SOLUTIONS 25 IN MINUTES OFFICE 77744 [facility] OUT[facility] 7 7 PHYSICIAN T VISIT S GROUP 15 MINUTES [facility] T OFFICE 64288 [facility] OUT[facility] 7 7 PHYSICIAN T VISIT S GROUP 10 MINUTES OFFICE 85282 [facility] 7 7 HEALTH T VISIT SOLUTIONS 15 IN MINUTES [facility] T EMERGENCY 48899 [facility] 7 7 [facility] T VISIT HIGH/URGE NT SEVERITY OFFICE 25348 [facility] OUT[facility] 7 7 HEALTH T VISIT SOLUTIONS 25 IN MINUTES EMERGENCY 31046 [facility] 7 7 PHYSICIAN VISIT S, PLLC HIGH SEVERITY& THREAT FUNJ [facility] T EMERGENCY 96348 [facility] DEPT 7 7 PHYSICIAN VISIT S, PLLC HIGH SEVERITY& THREAT FUNCJ OFFICE 46190 [facility] OUTPATIEN 7 7 PHYSICIAN T VISIT S GROUP 15 MINUTES OFFICE 95705 [facility] OUTPATIEN 7 7 HEALTH T VISIT SOLUTIONS 25 IN MINUTES OFFICE 57976 [facility] OUTPATIEN 7 [facility] T VISIT MEDICAL 10 G MINUTES [facility] 6 6 [facility] OFFICE 56887 [facility] OUTPATIEN 6 6 PHYSICIAN SERENA T VISIT S GROUP 15 MINUTES OFFICE 30815 [facility] OUTPATIEN 6 6 PHYSICIAN SERENA T VISIT S GROUP 15 MINUTES OFFICE 91363 [facility] OUTPATIEN 6 6 PHYSICIAN SERENA T VISIT S GROUP 25 MINUTES OFFICE 46975 [facility] OUTPATI[facility] 6 6 PHYSICIAN SERENA T VISIT S GROUP 15 MINUTES [facility] 6 6 [facility] OFFICE 34840 [facility] OUTPATIEN 6 6 PHYSICIAN SERENA T VISIT S GROUP 25 MINUTES OFFICE 59747 [facility] OUTPATIEN 6 6 PHYSICIAN SERENA T VISIT S GROUP 25 MINUTES [facility] 6 6 [facility] OFFICE 94344 JOSE BRADFORD OUTPATIEN 6 6 [facility] MORE SERENA T VISIT 25 MINUTES [facility] INC T OFFICE 79804 JOSE ANNAPEL OUTPATIEN 6 6 [facility] MORE [facility]ERENA T VISIT 15 MINUTES OFFICE 04518 RADHA LÓPEZ OUTPATIEN 6 6 [facility] T VISIT URGENT 25 TREAT MINUTES EMERGENCY 36309 NWAUC[facility] NWAUCHE DEPT 6 6 [facility] VISIT HIGH SEVERITY& THREAT FUN OFFICE 87799 JOSE BRADFORD OUTPATIEN 6 6 [facility] T VISIT 15 MINUTES [facility] 6 6 [facility] T OFFICE 03185 [facility] OUT[facility] 6 6 PHYSICIAN SERENA T VISIT S GROUP 25 MINUTES EMERGENCY 62005 [facility] 5 5 [facility] T VISIT HIGH/URGE NT SEVERITY EMERGENCY 12518 [facility] DEPT 5 5 [facility] VISIT [facility]IGH SEVERITY& THREAT [facility] 5 5 [facility] T EMERGENCY 67866 ALFARIS ALFARIS DEPT 5 5 [facility] VISIT HIGH SEVERITY& THREAT FUN EMERGENCY 76765 SWINEY SWINEY DEPT 5 5 PAT PAT VISIT HIGH SEVERITY& THREAT FUN OFFICE 60937 [facility] V[facility] 15 G MINUTES [facility] 5 5 [facility] T OFFICE 07850 [facility] 5 5 [facility]IS[facility]ICAL 15 G MINUTES [facility] INC T OFFICE 99683 JOSE BRADFORD OUTPATIEN 5 5 [facility] T VISIT 15 MINUTES [facility] - 5 5 [facility] OUTPAT[facility] INC T OFFICE 82286 JOSE BRADFORD OUTPATIEN 5 5 [facility] T VISIT 15 MINUTES OFFICE 94866 JOSE BRADFORD OUTPATIEN 5 5 [facility] T VISIT 15 MINUTES [facility] T OFFICE 46973 [facility] 4 [facility] T VISIT MEDICAL 15 G MINUTES [facility] 4 4 [facility] OUTPATIEN INC T EMERGENCY [address] [facility] [address] [address] [facility] T VISIT P LOW/MODER SEVERITY OFFICE 06547 JOSE BRADFORD OUTPATIEN 4 4 [facility] T VISIT 15 MINUTES [facility] 4 4 [facility] INPATIENT INC OFFICE 55459 JOSE VALDOVINOSL OUTPATIEN 4 4 [facility] MORE SERENA T VISIT 15 MINUTES OFFICE 14530 JOSE ANNAPEL OUTPATIEN 4 4 [facility] T VISIT 15 MINUTES OFFICE 64961 JOSE BRADFORD OUTPATIEN 4 4 [facility] MORE SERENA T VISIT 15 MINUTES OFFICE 17781 JOSE ANNAPEL OUTPATIEN 4 4 [facility] T VISIT 15 MINUTES OFFICE 29073 AGGIE MARCIAL OUTPATIEN 4 4 TEGAN TEGAN T VISIT 15 MINUTES [facility] T OFFICE 97646 AGGIE MARCIAL OUTPATIEN 4 4 TEGAN TEGAN T VISIT 15 MINUTES [facility] 4 4 [facility] OUTPATI[facility] INC T EMERGENCY 30792 [facility] DEPT 4 4 BRO BRO VISIT HIGH SEVERITY& THREAT [facility] - 4 4 [facility] OUTPATIEN INC T OFFICE 93582 JOSE R HARPEL OUTPATIEN 4 4 [facility] T VISIT 15 MINUTES [facility] - 4 4 [facility] OUTPATI[facility] INC T OFFICE 00193 JOSE R HARPEL OUTPATIEN 4 4 [facility] MORE SERENA T VISIT 15 MINUTES OFFICE 53910 JOSE R HARPEL OUTPATIEN 4 4 S[facility] MORE SERENA T VISIT 15 MINUTES OFFICE 86041 JOSE R HARPEL OUTPATIEN 4 4 [facility] MORE SERENA T VISIT 15 MINUTES [facility] 4 4 [facility] OUTPATIEN INC T OFFICE 07026 JOSE Costello HARPEL OUTPATIEN 4 4 [facility] MORE SERENA T VISIT 15 MINUTES OFFICE 72197 JOSE ANNAPEL OUTPATIEN 4 4 [facility] MORE SERENA T [facility]ISIT 15 MINUTES [facility] 4 4 [facility] OUTPATI[facility] INC T OFFICE 34855 JOSE ANNAPEL OUTPATIEN 4 4 [facility] MORE SERENA T VISIT 15 MINUTES OFFICE 07132 JOSE ANNAPEL OUTPATIEN 4 4 [facility] T VISIT 15 MINUTES Emergency REYES Tolu Gallagher (ER) 3 12:32 3 12:46 [facility] EMERGENCY 71698 NANCY GALLAGHER DEPT 3 3 EMERGENCY III [facility] HIGH SEVERITY& THREAT [facility] - 3 3 [facility] OUTPATIEN INC T EMERGENCY 12365 [facility] 3 3 [facility] DEPARTMEN INC T VISIT LOW/MODER SEVERITY OFFICE 57089 JOSE ANNAPEL OUTPATIEN 3 3 [facility] T VISIT 15 MINUTES PERIODIC 97675 JOSE BRADFORD PREVENTIV 3 3 SANC[facility]Z MORE SERENA E MED EST PATIENT 18-39 YRS OFFICE 55241 RADHA YOUNG 3 3 [place] [address] DEPT DEPT MINUTES
--- OUTSIDE RECORDS SUMMARY | 2017-07-27 17:03 | External Medical Summary Rpt | CCD ---
Author Author , ARGELIA Organization ARGELIA Address Unknown Phone [email or web address] Care Team Providers Care Truck Jumper Name Role Phone ALFARIS MOH, ALFARIS Unavailable Unavailable MOH ALFARIS MOH, ALFARIS Unavailable Unavailable MOH HUTTON BRO, HUTTON Unavailable Unavailable BRO HUTTON BRO, HUTTON Unavailable Unavailable BRO BESSON NELLY, BESSON Unavailable Unavailable NELLY [facility]available [facility], [facility] Unavailable Unavailable [facility], [facility] RAMSEY, RAMSEY Unavailable Unavailable RAMSEY ALL, RAMSEY ALL Unavailable Unavailable [facility] Unavailable Unavailable HOSPITAL, [facility] Unavailable Unavailable SERVICE, [facility] Unavailable Unavailable SERVICE, [facility] CHEN JAM, CHEN JAM Unavailable Unavailable MARCIAL TEGAN, MARCIAL Unavailable Unavailable TEGAN [facility], Unavailable Unavailable [facility] Un[facility]available [facility], [facility] Un[facility] Unavailable [facility], COOK [...] Unavailable HARPEL SERENA, HARPEL Unavailable Unavailable SERENA [facility] Un[facility], [facility] Unavailable Unavailable HOSPITAL P, [facility], Unavailable Unavailable [facility] RENE LÓPEZ Unavailable Unavailable RENE MADERA Unavailable Unavailable ALEAH [place] [facility] Un[facility] Un[facility], [facility] Unavailable Unavailable MEDICAL G, [facility] Unavailable Unavailable [facility], [facility] RAS JR, RAS JR Unavailable Unavailable RAS JR DWI, RAS Unavailable Unavailable JR DWI RAS JR DWI, RAS Unavailable Unavailable JR DWI [facility], Unavailable Unavailable [facility], Unavailable Unavailable [facility] Unavailable Unavailable SERVICES, [facility] Unavailable Unavailable DEPT, [facility] Unavailable Unavailable DEPT[facility] Unavailable Unavailable URGENT TREAT, [facility] [place] Unavailable Unavailable [facility] Unavailable Unavailable PLL[facility], [facility] AMADEO, AMADEO Unavailable Unavailable RENUSCH, RENUSCH Unavailable Unavailable SCALF JED, SCALF JED Unavailable Unavailable CSHUSTER CELSO, SCHUSTER CELSO Unavailable Unavailable MICHAELA, MICHAELA Unavailable Unavailable MICHAELA SHE, Unavailable Unavailable MICHAELA SHE [facility] Unavailable Unavailable [facility], [facility] SWINEY PAT, SWINEY Unavailable Unavailable PAT SWINEY PAT, SWINEY Unavailable Unavailable PAT HOWARD MARIA DEL CARMEN, HOWARD Unavailable Unavailable MARIA DEL CARMEN VORKPOR ALEXIS, VORKPOR Unavailable Unavailable ALEXIS VORKPOR ALEXIS, VORKPOR Unavailable Unavailable ALEXIS WEHRMAN III JOHANNA, Unavailable Unavailable WEHRMAN III JOHANNA DANNY JOHANNA, DANNY JOHANNA Unavailable Unavailable Purpose Continuity of Care Document - 08-30-2013 through 2016 Problems Code Diagnosis DOS Provider Status [id number] ATOPIC 06-03-2017 [facility] ITIS SOLUTIONS IN R12 HEARTBURN 06-03-2017 [facility] G2581 RESTLESS 05-13-2017 [facility] LEGS HEALTH SYNDROME SOLUTIONS IN N63 UNSPECIFIED 05-13-2017 [facility] LUMP IN HEALTH BREAST SOLUTIONS IN [id number] STRAIN UNS 05-13-2017 [facility] F [facility] T HEALTH WRIST HAND SOLUTIONS LEVEL UNS IN INITIAL K219 GASTRO-ESOP 05-12-2017 [facility] DISEASE INC WITHOUT ESOPHAGITIS U18822 OTH 05-12-2017 [place] SYMPTOMS & MEDICAL SIGNS IMAGING ASS INVOLV MUSCULOSKEL ETAL SYS [id number] UNSPECIFIED 05-12-2017 [facility], LEFT WRIST PLLC INITIAL ENCOUNTER Z720 TOBACCO USE 05-12-2017 [facility] N644 MASTODYNIA 05-04-2017 [place] [facility] R109 UNSPECIFIED 05-04-2017 [place] ABDOMINAL MEDICAL PAIN IMAGING ASS K5900 CONSTIPATIO 04-01-2017 [facility] UNSPECIFIED SOLUTIONS IN K8080 OTHER 03-22-2017 [facility] CHOLELITHIA PHYSICIANS SIS WITHOUT GROUP OBSTRUCTION N951 MENOPAUSAL 03-22-2017 [facility] AND FEMALE PHYSICIANS CLIMACTERIC GROUP STATES R1013 EPIGASTRIC 03-15-2017 [facility] PAIN PHYSICIANS GROUP R198 OTH SPEC SX 03-15-2017 [facility] & SIGNS PHYSICIANS INVLV THE GROUP DIGESTV SYS & ABD R110 NAUSEA 2017 [place] [facility] R140 ABDOMINAL 2017 [place] DISTENSION MEDICAL GASEOUS IMAGING ASS P09203 PAIN IN 03-03-2017 [facility] RIGHT LEG HEALTH SOLUTIONS IN V67213 PAIN IN 03-03-2017 [facility] LEFT LEG HEALTH SOLUTIONS IN R6882 DECREASED 02-05-2017 [facility] LIBIDO PHYSICIANS GROUP R0600 DYSPNEA 02-03-2017 [facility] UNSPECIFIED HEALTH SOLUTIONS IN R635 ABNORMAL 02-03-2017 [facility] WEIGHT GAIN HEALTH SOLUTIONS IN R1010 UPPER 02-02-2017 [facility], PAIN PLLC UNSPECIFIED Z888 ALLERGY 02-02-2017 [facility] MED[facility] INC BIOLOG SUBSTANC STS K1121 ACUTE 01-21-2017 [facility] SIALOADENIT HEALTH IS SOLUTIONS IN R000 TACHYCARDIA 01-21-2017 [facility] UNSPECIFIED MEDICAL G R002 PALPITATION 01-21-2017 [facility] MED[facility] G R1084 GENERALIZED 01-21-2017 [facility] ABDOMINAL HEALTH PAIN SOLUTIONS IN N736 FEMALE 09-29-2016 [facility] P ADHESIONS POSTINFECTI VE R102 PELVIC AND 09-29-2016 [facility] PERINEAL ANESTH OF PAIN THE BLUE N390 URINARY 09-01-2016 [facility] TRACT PHYSICIANS INFECTION GROUP SITE NOT SPECIFIED N3001 ACUTE 08-14-2016 [facility] CYSTITIS PHYSICIANS WITH GROUP HEMATURIA D259 LEIOMYOMA 08-04-2016 [facility] UNSPECIFIED N72 INFLAMMATOR 08-04-2016 [facility] Y DISEASE [facility] OF CERVIX UTERI N938 OTHER SPEC 08-04-2016 [facility] ABNORMAL PHYSICIANS UTERINE & GROUP VAGINAL BLEEDING N939 ABNORMAL 08-04-2016 [facility] UTERINE & ANESTH OF VAGINAL THE BLUE BLEEDING UNSPECIFIED N761 SUBACUTE 07-31-2016 [facility] AND CHRONIC PHYSICIANS VAGINITIS GROUP N920 EXCESS & 07-31-2016 [facility] MENSTRUATIO INC N W/REGULAR CYCLE D64779 ENCOUNTER 07-31-2016 [facility] FOR OTHER [facility] PREPROCEDUR INC AL EXAMINATION K5289 OT SPEC 06-18-2016 [facility] NONINFECTIV PHYSICIANS E GROUP GASTROENTER ITIS & COLITIS Z0100 ENCOUNTER 03-20-2016 [facility] EXAM EYES & GRE VISION W/O ABNORMAL FIND R0602 SHORTNESS 11-22-2015 [facility] [place] [facility] BREATH [facility] K210 GASTRO-ESOP 11-14-2015 [facility] REFLUX URGENT DISEASE W/ TREAT ESOPHAGITIS M545 LOW BACK 11-14-2015 [facility] URGENT TREAT N831 CORPUS 10-31-2015 JOSE Costello LUTEUM CYST SANCHEZ MORE N9489 OTH COND 10-31-2015 JOSE Costello ASSOC W/FE SANCHEZ MORE GEN ORGN & MENSTRUAL CYCL 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 F59082 PAIN IN 08-15-2015 [facility] ALEXIS LEFT WRIST K9241IE UNSPECIFIED 08-15-2015 [facility] [place] [facility]UR[facility] RADI[facility]Y WRIST HAND FINGERS INITIAL N201 CALCULUS OF 07-28-2015 VORFREIDA ALEXIS URETER N23 UNSPECIFIED 07-28-2015 [facility] ALEXIS RENAL COLIC N3000 ACUTE 07-28-2015 [facility] ALEXIS CYSTITIS WITHOUT HEMATURIA 0340 STREPTOCOCC 06-12-2015 [facility] 07764 OTHER CHEST 06-12-2015 ALFARIS MOH PAIN V148 PERSONAL 06-12-2015 [place] HISTORY COMMUNITY ALLERGY [facility] SPEC MEDICINAL AGTS 90623 VOLUME 06-11-2015 [facility] PAT DEPLETION UNSPECIFIED 2768 HYPOPOTASSE 06-11-2015 SWINE[facility] PAT CICI 57140 CHEST PAIN 06-11-2015 [facility] [place] UNSPECIFIED RADIOLOGY 91197 PAINFUL 06-11-2015 SWINE[facility] PAT RESPIRATION 13598 OTHER 06-07-2015 [facility] MEDICAL G DYSRHYTHMIA S 7851 PALPITATION 06-07-2015 [facility] V1259 PERS HX, 06-04-2015 RAS JR OTHER DWI DISEASES OF CIRCULATORY SYSTEM 6259 UNSPEC 02-19-2015 [facility] SYMPTOM ANESTH OF ASSOC THE BLUE W/FEMALE GENITAL ORGANS V7283 OTHER 02-11-2015 [facility]CIFIED [facility] PRE-OPERATI INC VE EXAMINATION 6238 OTHER 02-08-2015 [place] SPECIFIED MEDICAL NONINFLAMMA IMAGING ASS TORY DISORDER VAGINA 6262 EXCESSIVE 02-04-2015 JOSE Costello OR LOTTIE BRADFORD MD MENSTRUATIO N 7850 UNSPECIFIED 10-02-2014 [facility]ACH[facility] 4279 UNSPECIFIED 09-15-2014 [place] CARDIAC MEDICAL DYSRHYTHMIA IMAGING ASS V242 ROUTINE 06-07-2014 [facility] FOLLOW-UP LABORATORIE S 5990 URINARY 05-25-2014 JOSE Costello TRACT SANCHEZ MORE INFECTION SITE NOT SPECIFIED 67289 TRANSIENT 05-01-2014 JOSE BRADFORD MD N OF W/DELIVERY 41152 FETOPELVIC 05-01-2014 JOSE Costello DISPROPORTI SANCHEZ MORE ON, DELIVERED 99777 PRIMARY 05-01-2014 COMM[facility] UTERINE ANESTH OF INERTIA THE BLUE WITH DELIVERY 22311 C/S DELIV 05-01-2014 JOSE Costello W/O INDICAT SANCHEZ MORE DELIV W/WO ANTPRTM COND V270 OUTCOME OF 05-01-2014 JOSE Costello DELIVERY SANCHEZ MORE SINGLE LIVEBORN 58119 MILD OR 04-30-2014 [facility]PECIFIED [facility] INC PRE-ECLAMPS IA WITH DELIVERY V221 SUPERVISION 04-30-2014 JOSE BRADFORD MD NORMAL 60563 TRANSIENT 04-26-2014 JOSE BRADFORD MD N OF ANTEPARTUM V220 SUPERVISION 04-09-2014 [facility] [address] OTHER 03-27-2014 ANNI MARIE SPECIFED COMPLICATIO N ANTEPARTUM V286 SCREENING 03-23-2014 [facility] [place] [address] THREATENED 03-21-2014 [facility] PREMATURE [facility] LABOR INC ANTEPARTUM V771 SCREENING 02-03-2014 [facility] FOR [facility] DIABETES INC MELLITUS V2889 OTHER 12-07-2013 [facility] SPECIFIED [facility] INC SCREENING 59162 PAIN IN 09-14-2013 [facility], AMBULANCE LOWER LEG SERVICE 8449 SPRAIN&STRA 09-14-2013 [facility] IN OF EMERGENCY UNSPECIFIED SERVICES SITE OF KNEE&LEG 8470 NECK SPRAIN 09-14-2013 [facility] AND STRAIN EMERGENCY SERVICES 9222 CONTUSION 09-14-2013 [facility] ABDOMINAL INC WALL E8120 OTH MOTR 09-14-2013 [facility]IE EMERGENCY W/MOTR SERVICES VEH-INJR MV NEWSWRITER E8150 OTH MOTR 09-14-2013 [facility] AMB[facility]ANCE W/OBJ SERVICE HIWAY-INJUR ING NEWSWRITER V222 09-14-2013 [facility] INCIDENTAL INC V704 EXAMINATION 09-05-2013 [facility] FOR RE[facility] MEDICOLEGAL LABORATORIE REASON S V7231 ROUTINE 09-05-2013 JOSE BRADFORD MD AL EXAMINATION V2509 OT GENERAL 08-30-2013 [facility] CNSL&ADVICE DEPT CONTRACEPT MANAGEMENT V2689 OTHER 08-30-2013 [facility] SPECIFIED HEALTH PROCREATIVE DEPT MANAGEMENT V7242 08-30-2013 [facility] EXAMINATION HEALTH OR TEST DEPT POSITIVE RESULT Medications Na ND Rx Da Fi Fi [...] 0 UG MG S TA BL ET PA 00 08 [...] S TA BL ET ES 00 08 09 90 30 00 CA Ac TR 55 -3 -2 .0 00 RL ti AD 50 1- 9- 00 00 IS ve IO 88 20 20 77 LE L 60 17 17 [address] MG UG S TA BL ET ME 00 08 09 60 15 00 CA Ac TO 09 -2 -2 .0 00 RL ti CL 32 5- 2- 00 00 IS ve OP 20 20 20 77 LE RA 30 17 [address] DE UG S 10 MG TA BL ET TR 67 08 09 80 15 00 CA Ac IA 87 -2 -2 .0 00 RL ti MC 70 5- 2- 00 00 IS ve IN 25 20 20 77 LE OL 18 17 [address] E UG 0. S 1% CR EA M GA 69 08 09 90 30 00 CA Ac BA 09 -1 -1 .0 00 RL ti PE 70 8- 5- 00 00 IS ve NT 81 20 20 77 LE IN 21 17 [address] 60 UG 0 S MG TA BL ET FI 37 08 09 60 30 00 CA Ac BE 20 -1 -0 .0 00 RL ti R 50 4- 8- 00 00 IS ve LA 21 20 20 77 LE XA 37 17 17 [address] VE UG S 62 5 MG TA BL ET PA 00 08 09 [...] S TA BL ET ES 00 08 09 90 30 00 CA Ac TR 55 -0 -0 .0 00 RL ti AD 50 4- 1- 00 00 IS ve IO 88 20 20 77 LE L 60 17 17 [address] MG UG S TA BL ET GA 68 07 08 90 30 00 CA Ac BA 46 -2 -1 .0 00 RL ti PE 20 1- 8- 00 00 IS ve NT 12 20 20 77 LE IN 60 17 [address] 60 UG 0 S MG TA BL ET FI 37 07 08 60 30 00 CA Ac BE 20 -1 -1 .0 00 RL ti R 50 7- 1- 00 00 IS ve LA 21 20 20 77 LE XA 37 17 17 [address] VE UG S 62 5 MG TA BL ET NA 68 07 08 60 [address] 46 -1 -1 .0 00 RL ti OX 20 7- 1- 00 00 IS ve EN 19 20 20 77 LE 00 17 17 [address] 0 UG MG S TA BL ET PA 00 07 08 30 30 00 CA Ac RO 37 -0 -0 .0 00 RL ti XE 87 7- 4- 00 00 IS ve TI 00 20 20 77 LE NE 49 17 17 55 3 23 HC UG L S 40 MG TA BL ET AT 00 08 30 30 00 CA Ac EN 09 -0 -0 .0 00 RL ti OL 30 7- 4- 00 00 IS ve OL 78 20 20 77 LE 71 17 17 55 25 0 24 UG MG S TA BL ET ES [...] 17 [address] RUBY GL S YC OL 33 50 PO WD PA 65 06 07 30 30 00 CA Ac NT 86 -2 -2 .0 00 RL ti OP 20 3- 8- 00 00 IS ve RA 56 20 20 77 LE ZO 09 17 [address] BELTRAN SO S D DR 40 MG TA B FI 37 06 07 60 30 00 CA Ac BE 20 -2 -1 .0 00 RL ti R 50 1- 4- 00 00 IS ve LA 21 20 20 77 LE XA 37 17 17 [address] VE UG S 62 5 MG TA BL ET PA 00 06 30 30 00 CA Ac RO 37 -0 -3 .0 00 RL ti XE 87 5- 0- 00 00 IS ve TI 00 20 20 77 LE NE 49 17 [address] LEMUS UG L S 40 MG TA BL ET AT 00 06 06 30 30 00 CA Ac EN 09 -0 -3 .0 00 RL ti OL 30 5- 0- 00 00 IS ve OL 78 20 20 77 LE 71 17 17 [address] UG MG S TA BL ET ES 00 03 16 90 30 00 CA Ac TR 55 -0 -3 .0 00 RL ti AD 50 5- 0- 00 00 IS ve IO 88 20 20 77 LE L 60 17 17 [address] MG UG S TA BL ET GA 68 05 90 30 00 CA Ac BA 46 -2 -2 .0 00 RL ti PE 20 6- 3- 00 00 IS ve NT 12 20 20 77 LE IN 60 17 [address] 60 UG 0 S MG TA BL ET PA 65 05 30 30 00 SO Ac NT 86 -3 -2 .0 00 PE ti OP 20 0- 3- 00 00 RS ve RA 56 20 20 56 ZO 09 17 17 24 FA LE 0 43 UT LY SO D DR DR BELTRAN 40 MG TA B AT 00 05 30 30 00 WA Ac EN 78 [...] 17 17 24 FA LE 0 43 UT LY SO D DR DR BELTRAN 40 MG TA B GA 65 04 30 00 WA Ac BA 16 -2 [...] -1 .0 00 PE ti RI 10 6- 9- 00 00 RS ve ZI 40 20 20 56 NE 25 17 17 23 FA 0 61 UT HC LY L 10 DR UG MG TA BL ET FI 00 04 05 60 30 00 WA Ac BE 00 -2 -1 .0 00 L- ti RC 52 1- 9- 00 08 MA ve ON 50 20 [...] 17 17 13 FA 2 2 77 UT MG LY TA DR BL UG ET LE 68 04 05 10 10 00 WA Ac VO 38 -1 -1 .0 00 L- ti FL 20 4- 2- 00 07 MA ve OX 01 20 20 40 RT AC 60 17 17 38 IN 1 99 PH AR 50 MA 0 CY MG #4 TA 93 BL ET OM 60 04 05 30 30 00 TN Ac EP 50 -0 -0 .0 00 L- ti RA 50 7- 5- 00 07 MA ve ZO 14 20 20 40 RT LE 60 17 [address] AR MA 40 CY MG #4 93 CA PS UL E PA 68 04 04 30 30 00 TN Ac RO 38 -0 -2 .0 00 L- ti XE 20 1- 8- 00 07 MA ve TI 00 20 20 39 RT NE 10 17 17 10 6 20 PH HC AR L MA 40 CY MG #4 93 TA BL ET GA 53 04 04 90 30 00 TN Ac BA 74 -0 -2 .0 00 L- ti PE 60 1- 8- 00 07 MA ve NT 10 20 20 39 RT IN 20 17 17 11 5 64 PH 30 AR 0 MA MG CY CA #4 PS 93 UL E AT 00 04 04 30 30 00 TN Ac EN 78 -0 -2 .0 00 L- ti OL 11 4- 8- 00 07 MA ve OL 07 20 20 40 RT 80 17 17 22 25 1 58 PH AR MG MA CY TA BL #4 ET 93 GA 53 03 03 90 30 00 TN Ac BA 74 -0 -3 .0 00 L- ti PE 60 4- 1- 00 07 MA ve NT 10 20 20 39 RT IN 20 17 17 11 5 64 PH 30 AR 0 MA MG CY CA #4 PS 93 UL E FI 00 03 03 60 30 00 TN Ac BE 00 -0 -3 .0 00 L- ti RC 52 6- 1- 00 08 MA ve ON 50 20 20 83 RT 02 17 17 76 62 3 04 PH 5 AR MG MA CY CA PL #4 ET 93 OM 60 03 03 30 30 00 TN Ac EP 50 -0 -3 .0 00 L- ti RA 50 8- 1- 00 07 MA ve ZO 14 20 20 37 RT LE 60 17 [address] AR MA 40 CY MG #4 93 CA PS UL E PA 68 03 03 30 30 00 WA Ac RO 38 -0 -3 .0 00 L- ti XE 20 4- 1- 00 07 MA ve TI 00 20 20 39 RT NE 10 17 17 10 6 20 PH HC AR L MA 40 CY MG #4 93 TA BL ET AT 00 02 03 45 30 00 WA Ac EN 78 -2 -2 .0 00 L- ti OL 11 4- 4- 00 07 MA ve OL 07 20 20 37 RT 80 17 17 71 25 1 63 PH AR MG MA CY TA BL #4 ET 93 CE 16 02 03 30 30 00 WA Ac TI 57 -0 -0 .0 00 L- ti RI 10 6- 3- 00 08 MA ve ZI 40 20 20 83 RT NE 25 17 17 92 0 21 PH HC AR L MA 10 CY MG #4 93 TA BL ET PA 68 02 03 30 30 00 WA Ac RO 38 -0 -0 .0 00 L- ti XE 20 6- 3- 00 07 MA ve TI 00 20 20 39 RT NE 10 17 17 10 6 20 PH HC AR L MA 40 CY MG #4 93 TA BL ET FL 60 02 03 32 60 00 WA Ac UT 43 -0 -0 .0 00 L- ti IC 20 6- 3- 00 07 MA ve 26 20 20 39 RT ON 41 17 17 [address] AR OP MA CY 50 #4 MC 93 G SP RA Y GA 53 02 03 90 30 00 WA Ac BA 74 -0 -0 .0 00 L- ti PE 60 6- 3- 00 07 MA ve NT 10 20 20 39 RT IN 20 17 17 11 5 64 PH 30 AR 0 MA MG CY CA #4 PS 93 UL E FL 55 02 03 1. 1 00 WA Ac UC 11 -0 -0 00 00 [...] FI 00 01 02 60 30 00 WA Ac BE 00 -2 -2 .0 00 L- ti RC 52 9- 4- 00 08 MA ve ON 50 20 20 83 RT 02 17 17 76 62 3 04 PH 5 AR MG MA CY CA PL #4 ET 93 GA 16 01 02 60 30 00 TN Ac BA 71 -1 -1 .0 00 L- ti PE 40 4- 0- 00 07 MA ve NT 50 20 20 38 RT IN 40 17 17 50 2 72 PH 30 AR 0 MA MG CY CA #4 PS 93 UL E OM 60 01 02 30 30 00 TN Ac EP 50 -1 -0 .0 00 L- ti RA 50 1- 3- 00 07 MA ve ZO 14 20 20 37 RT LE 60 17 [address] AR MA 40 CY MG #4 93 CA PS UL E PA 54 01 30 30 00 TN Ac RO 45 -0 -2 .0 00 L- ti XE 80 4- 7- 00 07 MA ve TI 98 20 20 38 RT NE 91 17 17 50 0 71 PH HC AR L MA 20 CY MG #4 93 TA BL ET FI 00 12 01 60 30 00 TN Ac BE 00 -2 -2 .0 00 L- ti RC 52 3- 0- 00 08 MA ve ON 50 20 20 83 RT 02 16 17 76 62 3 04 PH 5 AR MG MA CY CA PL #4 ET 93 PA 68 12 01 6. 7 00 TN Ac RO 38 -2 -2 00 00 L- ti XE 20 3- 0- 0 07 MA ve TI 09 20 20 36 RT NE 80 16 17 66 6 97 PH HC AR L MA 20 CY MG #4 93 TA BL ET HY 42 12 01 [address] 85 -1 -1 .0 00 PE ti OM 80 9- 3- 00 00 RS ve OR 30 20 20 55 PH 20 16 17 14 FA ON 1 52 UT E LY [address] UG TA BL ET OM 00 12 01 30 30 00 TN Ac EP 78 -1 -1 .0 00 L- ti RA 12 6- 3- 00 07 MA ve ZO 23 20 20 37 RT LE 43 16 17 [address] AR MA 40 CY MG #4 93 CA PS UL E GA 65 12 01 60 30 00 TN Ac BA 16 -1 -1 .0 00 L- ti PE 20 9- 3- 00 07 MA ve NT 10 20 20 35 RT IN 25 16 17 83 0 09 PH 30 AR 0 MA MG CY CA #4 PS 93 UL E AT 00 12 01 45 30 00 WA Ac EN 78 -1 -1 .0 00 L- ti OL 11 9- 3- 00 07 MA ve OL 07 20 20 37 RT 80 16 17 71 25 1 63 PH AR MG MA CY TA BL #4 ET 93 GA 67 12 01 30 10 00 SO Ac BA 87 -0 -0 .0 00 PE ti PE 70 8- 9- 00 00 RS ve NT 22 20 20 55 IN 30 16 17 01 FA 5 24 UT [address] UG CA PS UL E Procedures Procedure DOS Code Location Performer Comment CURRENT 1034F Peak 10 TOBACCO 7 HEALTH SMOKER SOLUTIONS IN TOBACCO 1000F [facility] USE 7 HEALTH ASSESSED SOLUTIONS IN BODY MASS 3008F [facility] INDEX 7 HEALTH DOCUMENTE SOLUTIONS D IN BODY MASS 3008F [facility] INDEX 7 HEALTH DOCUMENTE SOLUTIONS D IN TOBACCO 1000F [facility] USE 7 HEALTH ASSESSED SOLUTIONS IN CURRENT 1034F Peak 10 TOBACCO 7 HEALTH SMOKER SOLUTIONS IN RADEX 25070 [facility] WRIST 7 [facility] COMPLETE INC INC MINIMUM 3 VIEWS APPLICATI 10346 [facility] ON SHORT 7 [facility] ARM INC INC SPLINT FOREARM-H AND STATIC US BREAST 94604 [facility] UNI REAL 7 [facility] TIME INC INC WITH IMAGE COMPLETE US BREAST 39494 [place] YA UNI REAL 7 MEDICAL [place] [address] [facility] TRACT UPR 7 [facility] W/SM INT INC INC W/MULT SERIAL IMAGES RAD EXP G9500 [place] RAMSEY INDICES/E 7 MEDICAL XP TM & IMAGING NUMB ASS FLUORO IMAGES DOC FINAL G9551 [place] ROXY REPR ABD 7 MEDICAL IMAG STS IMAGING W/[place] [address] [facility] ABDOMINAL 7 [facility] REAL [place] [address] [place] RAMSEY ABDOMINAL 7 MEDICAL REAL IMAGING [place] ASS W/[place] [address] [facility] THYROID 7 [facility] STIMULATI INC INC NG HORMONE TSH COLLECTIO 93367 [facility] N VENOUS 7 [facility] BLOOD INC INC VENIPUNCT URE GONADOTRO 55614 [facility] PIN 7 [facility] LUTEINIZI INC INC NG HORMONE GONADOTRO 12723 [facility] PIN 7 [facility] FOLLICLE [place] [address] [facility] TESTOSTER 7 [facility] [place] [address] [facility] LIPASE 7 [facility] INC INC COLLECTIO 09011 [facility] LÓPEZ N VENOUS 7 HEALTH BLOOD SOLUTIONS VENIPUNCT IN URE CURRENT 1034F ETH[facility] LÓPEZ TOBACCO [place] [address] [facility] INFUSION 7 [facility] THERAPY/P INC INC ROPHYLAXI S /DX 1ST TO 1 HR THERAPEUT 99842 [facility] IC 7 [facility] INJECTION INC [place] [address] [facility] AMYLASE 7 [facility] INC INC BLOOD 31184 [facility] COUNT 7 [facility] COMPLETE INC INC AUTO&AUTO DIFRNTL WBC TOBACCO 1000F [facility] L[facility]PE[facility] USE 7 HEALTH ASSESSED SOLUTIONS IN GENERAL 33305 [facility] [address] [place] [address] PANEL HOLDINGS HOLDINGS BODY MASS 3008F [facility]AN LÓPE[facility] INDEX 7 HEALTH DOCUMENTE SOLUTIONS D IN COMPREHEN 83928 [facility] SIVE 7 [facility] METABOLIC INC INC PANEL FINAL G9551 ANTHONY RAMSEY REPR ABD 7 MEDICAL IMAG STS IMAGING W/O ASS INCIDNT FND LES NTD: THERAPEUT 82047 [facility] IC 7 [facility] INJECTION INC INC IV PUSH EACH NEW DRUG FINAL G9638 ANTHONY ROXY REPORTS 7 MEDICAL W/O DOC IMAGING 1/[place] [address] [facility] LIPASE 7 [place] [address] [facility] ABDOMEN & 7 MEDICAL PELVIS IMAGING W/O ASS CONTRAST MATERIAL ANESTHESI 63853 [facility] A 6 ANESTH INTRAPERI OF THE TONEAL BLUE LOWER ABD W/LAPS NOS ECG 76641 [facility] MCGINNIS JR ROUTINE [facility] W/LEAST P 12 LDS I&R ONLY BASIC 17559 [facility] METABOLIC 6 [facility] PANEL INC INC CALCIUM TOTAL BLOOD 88815 [facility] COUNT 6 [facility] COMPLETE INC INC AUTO&AUTO DIFRNTL WBC URNLS DIP 72697 [facility] STICK/TAB INC [place] [address] [place] YA TRANSVAGI 6 MEDICAL NAL IMAGING ASS COLLECTIO 53104 [facility] N VENOUS 6 [facility] [place] [address] [place] RAMSEY ALL TRANSVAGI 6 MEDICAL NAL IMAGING ASS URINLS 35189 [facility] DIP 6 PHYSICIAN SERENA STICK/TAB S GROUP LET REAGNT NON-AUTO MICRSCPY CULTURE 87457 [facility] BACTERIAL 6 [facility] INC INC QUANTTATI VE COLONY COUNT URINE URINLS 88983 [facility] DIP 6 PHYSICIAN SERENA STICK/TAB S GROUP LET REAGNT NON-AUTO MICRSCPY HOSPITAL G0378 [facility] OBSERVATI 6 [facility] ON INC INC SERVICE PER HOUR NONINVASI 43125 [facility] VE 6 [facility] EAR/PULSE INC INC OXIMETRY OVERNIGHT MONITOR LAPS 78183 [facility] VAGINAL 6 PHYSICIAN SERENA HYSTERECT S GROUP LIZETH UTERUS 250 GM/< ANESTHESI 26016 [facility] A VAGINAL 6 ANESTH SHE OF THE HYSTERECT BLUE LIZETH INCL BIOPSY CULTURE 56531 [facility] BACTERIAL 6 [facility] INC INC QUANTTATI VE COLONY COUNT URINE COLLECTIO 20155 [facility] N VENOUS 6 [facility] BLOOD INC [place] [address] [facility] PATHOLOGY GROSS&TREY ROSCOPIC EXAM URNLS DIP 89757 [facility] 6 [facility] STICK/TAB INC INC LET REAGENT AUTO MICROSCOP Y BLOOD 90285 [facility] COUNT 6 [facility] HEMOGLOBI INC INC N TOBACCO 59344 [facility] USE 6 [facility] CESSATION INC INC INTERMEDI ATE 3-10 MINUTES BLOOD 10072 [facility] COUNT 6 [facility] HEMATOCRI INC INC T HOSPITAL G0378 [facility] OBSERVATI 6 [facility] ON INC INC SERVICE PER HOUR GONADOTRO 74524 [facility] PIN 6 [facility] CHORIONIC INC INC QUALITATI VE BLOOD 98877 [facility] SE[facility] COUNT 6 [facility] COMPLETE INC INC AUTO&AUTO DIFRNTL WBC URNLS DIP 95870 [facility] SEQUEIRAON 6 [facility] STICK/TAB INC INC LET REAGENT AUTO MICROSCOP Y COLLECTIO 75004 [facility] N VENOUS 6 [facility] BLOOD INC INC VENIPUNCT URE SMR PRIM 73820 [facility] SRC WET 6 PHYSICIAN SERENA MOUNT S GROUP NFCT AGT THERAPEUT 30805 [facility] [facility] IC 6 PHYSICIAN SERENA PROPHYLAC S GROUP TIC/DX INJECTION SUBQ/[place] [address] [place] [facility] ALL ABDOMEN & 6 MEDICAL PELVIS IMAGING W/CONTRAS ASS T MATERIAL THERAPEUT 80230 [facility] IC 6 PHYSICIAN SERENA PROPHYLAC S GROUP TIC/DX INJECTION SUBQ/IM HGB 39809 [facility] QUANTITAT 6 PHYSICIAN SERENA ARLETTE S GROUP TRANSCUTA NEOUS OPHTH [address]2969 [facility] 6 GRE GRE XM&EVAL COMPRE NEW PT 1/> VST COLLECTIO 37546 [facility] N VENOUS 6 [facility] [place] [address] [facility], [facility], SURG 6 [facility] PATHOLOGY GROSS&TREY ROSCOPIC EXAM HYSTEROSC 89251 [facility] OPY BX 6 PHYSICIAN SERENA ENDOMETRI S GROUP UM&/POLYP C W/WO D&C BLOOD 25442 [facility] COUNT 6 [facility] HEMOGLOBI INC INC N BLOOD 37243 [facility] COUNT 6 [facility] HEMATOCRI INC INC T ANES 96842 [facility] HYSTEROSC 6 ANESTH REE OPY&/HYST OF THE EROSALPIN BLUE GOGRAPHY W/BX INJECTION J0131 [facility] ACETAMINO INC INC PHEN 10 MG ECG 16825 BESSON BESSON ROUTINE 6 NELLY NELLY ECG W/LEAST 12 LDS I&R ONLY INJECTION J2405 [facility] 6 [facility] ONDANSETR INC INC ON HCL PER 1 MG BLOOD 04846 [facility] COUNT 6 [facility] COMPLETE INC INC AUTO&AUTO DIFRNTL WBC GONADOTRO 68991 [facility] PIN 6 [facility] CHORIONIC INC INC QUALITATI VE URNLS DIP 93149 [facility] STICK/TAB INC INC LET REAGENT AUTO MICROSCOP Y COLLECTIO 48473 [facility] N VENOUS 6 [facility] BLOOD INC INC VENIPUNCT URE SMR PRIM 69055 JOSE BRADFORD SRC WET 6 SANCHEZ MORE [facility] AGT RADIOLOGI 11141 [facility] MILES CHEN JAM C 6 RADIOLOGY EXAMINATI ON CHEST SINGLE VIEW FRONTAL RADEX 35549 NWAUCHE NWAUCHE SPINE 6 [facility] LUMBOSACR AL 2/3 [place] [address] [place] [facility] ALL TRANSVAGI 6 MEDICAL NAL IMAGING ASS RADEX 97878 CNTR[facility] MILES VETO WRIST 5 RADIOLOGY RHO COMPLETE MINIMUM 3 VIEWS RADEX 30255 VORKPOR VORKPOR WRIST 2 5 [place] [address] [facility] MILES VETO ABDOMEN & 5 RADIOLOGY RHO PELVIS W/O CONTRAST MATERIAL THERAPEUT 34804 JOAN FRANCO IC 5 [facility] TIC/DX INJECTION SUBQ/IM ECG 01729 ALFARIS ALFARIS ROUTINE 5 MOH MOH ECG W/LEAST 12 LDS I&R ONLY ECG 88140 SWINEY SWINEY ROUTINE 5 PAT PAT ECG W/LEAST 12 LDS I&R ONLY RADIOLOGI 84293 [facility] [place] SCALF JED C EXAM 5 RADIOLOGY CHEST 2 VIEWS FRONTAL&L ATERAL RADIOLOGI 72657 SWINEY SWINEY C 5 PAT PAT EXAMINATI ON CHEST SINGLE VIEW FRONTAL EXTERNAL 31410 [facility] ECG 5 [facility] SCANNING INC INC ANALYSIS REPORT XTRNL ECG 97656 [facility] & 48 HR 5 [facility] RECORDING INC INC XTRNL ECG 93277 RAS MCGINNIS JR 5 DWI DWI CONTINUOU S RHYTHM W/I&R UP TO 48 HRS ANESTHESI 65819 [facility] 5 ANESTH MARIA DEL CARMEN INTRAPERI OF THE TONEAL BLUE LOWER ABD W/LAPS NOS GONADOTRO 02105 [facility] PIN 5 [facility] CHORIONIC INC INC QUALITATI VE BLOOD 65235 [facility] COUNT 5 [facility] COMPLETE INC INC AUTO&AUTO DIFRNTL WBC URNLS DIP 96969 [facility] STICK/TAB INC INC LET REAGENT AUTO MICROSCOP Y COLLECTIO 83260 [facility] N VENOUS 5 [facility] [place] [address] [facility] TRAN[facility] 5 MEDICAL NAL IMAGING ASS ECHO 47565 MILES SCHUSTER CELSO TTHRC R-T 4 MEDICAL 2D SERV W/WOM-MOD FOUNDATIO E COMPL N SPEC&[place] [address] [facility] THYROID 4 [facility] STIMULATI INC INC NG HORMONE TSH ECG 90058 RAS MCGINNIS JR ROUTINE 4 DWI DWI ECG W/LEAST 12 LDS I&R ONLY RADIOLOGI 63831 [place] YA C EXAM 4 MEDICAL SHAILA CHEST 2 IMAGING VIEWS ASS FRONTAL&L ATERAL CYTP C/V 37054 BIO BIO AUTO THIN 4 REFERNCE REFERNCE LYR LABORATOR LABORATOR PREPJ SCR IES IES MNL RESCR PHYS 51461 JOSE BRADFORD DELIVERY 4 SANCHEZ MORE SERENA ONLY W/POSTPAR TG CARE NEURAXIAL 33888 [facility] LABOR 4 ANESTH ANALG/ANE OF THE S PLND BLUE VAGINAL DELIVERY 32603 JOSE BRADFORD BIOPHYSIC 4 SNACHEZ LYONS AL PROFILE NON-STRES S TESTING LOW 741 [facility] CERVICAL 4 [facility] INC INC SECTION 73722 JOSE BRADFORD NONSTRESS 4 SANCHZE MORE SERENA TEST CUL BACT 41451 COMBINED COMBINED XCPT 4 PHYSICIAN PHYSICIAN URINE S LA S LA BLOOD/STO OL AEROBIC ISOL EXTERNAL 66370 [facility] ECG 4 [facility] SCANNING INC INC ANALYSIS REPORT XTRNL ECG 74953 [facility] & 48 HR 4 [facility] RECORDING INC INC XTRNL ECG 79632 [facility] KARIMI 4 [facility] S RHYTHM P W/I&R [place] [address] [place] [address] [facility] THYROID 4 [facility] STIMULATI INC INC NG HORMONE TSH THYROID 41949 [facility] HORM 4 [facility] UPTK/THYR INC [place] [address] [facility] THYROXINE 4 [facility] TOTAL INC INC ECG 35587 HUTTON HUTTON ROUTINE 4 BRO BRO ECG W/LEAST 12 LDS I&R ONLY CUL 72717 JOSE BRADFORD PRSMPTV 4 SANCHEZ LYONS PTHGNC ORGANISM SCRN W/COLONY ESTIMJ PARTICLE 42055 [facility] AGGLUTINA 4 [facility] TION INC INC SCREEN EACH ANTIBODY 69165 [facility] NONSTRESS 4 [facility] TEST INC INC FTL 34874 [facility] FIBRONECT 4 [facility] IN INC INC CERVICOVA G SECRETION S SEMI-LINDA URNLS DIP 93967 [facility] STICK/TAB INC INC LET REAGENT AUTO MICROSCOP Y BLOOD 70133 [facility] COUNT 4 [facility] COMPLETE INC INC AUTO&AUTO DIFRNTL WBC GLUCOSE 19292 [facility] POST 4 [facility] GLUCOSE INC INC DOSE US PREG 49745 JOSE BRADFORD UTERUS 4 SANCHEZ LYONS AFTER TRIMEST GESTATION GONADOTRO 19681 [facility] PIN 4 [facility] CHORIONIC INC INC QUANTITAT ARLETTE ALPHA-FET 50053 [facility] OPROTEIN 4 [facility] [place] [address] [facility] ESTRIOL 4 [facility] INC INC URNLS DIP 80738 [facility] 3 [facility] STICK/TAB INC INC LET REAGENT AUTO MICROSCOP Y GROUND A0425 [facility] MILEAGE 3 AMBULANCE AMBULANCE PER SERVICE SERVICE STATUTE MILE AMBULANCE A0429 [facility] SERVICE 3 AMBULANCE AMBULANCE BLS SERVICE SERVICE EMERGENCY TRANSPORT RADEX 00373 [facility] SPINE 3 [facility] CERVICAL INC INC 2 OR 3 VIEWS RADIOLOGI 20284 [facility] C 3 [facility] EXAMINATI INC INC ON KNEE 1/2 VIEWS US PREG 69194 [facility] UTERUS 3 [facility] REAL TIME INC INC W/IMAGE DCMTN TRANSVAG CULTURE 51942 JOSE Costello CHLAMYDIA 3 SANCHEZ BRADFORD MD ANY SOURCE IADNA 89873 BIO BIO SIMON 3 REFERNCE REFERNCE SPECIES LABORATOR LABORATOR AMPLIFIED IES IES PROBE TQ IADNA 97687 BIO BIO GARDNEREL 3 REFERNCE REFERNCE LA LABORATOR LABORATOR VAGINALIS IES IES AMPLIFIED PROBE TQ CYTP C/V 31898 BIO BIO AUTO THIN 3 REFERNCE REFERNCE LYR LABORATOR LABORATOR PREPJ SCR IES IES MNL RESCR PHYS IADNA 12150 BIO BIO CHLAMYDIA 3 REFERNCE REFERNCE LABORATOR LABORATOR TRACHOMAT IES IES IS AMPLIFIED PROBE TQ IADNA 25134 JOSE ANNAPEL HERPES 3 SANCHEZ MORE SERENA SIMPLX VIRUS DIRECT PROBE TQ IADNA 27303 BIO BIO HERPES 3 REFERNCE REFERNCE SOMPLX LABORATOR LABORATOR VIRUS IES IES AMPLIFIED PROBE TQ IADNA 31465 JOSE ANNAPEL NEISSERIA 3 SANCHEZ MORE SERENA GONORRHOE AE DIRECT PROBE TQ IADNA 97559 BIO BIO NEISSERIA 3 REFERNCE REFERNCE LABORATOR LABORATOR GONORRHOE IES IES AE AMPLIFIED PROBE TQ IADNA NOS 71126 BIO BIO 3 REFERNCE REFERNCE AMPLIFIED LABORATOR LABORATOR PROBE TQ IES IES EACH ORGANISM IAADIADOO 96741 JOSE ANNAPEL 3 SANCHEZ MORE SERENA TRICHOMON VAGINALIS URINE 50451 RADHA HERRERAS [facility] DEPT VISUAL COLOR CMPRSN METHS Encounters Encounter Start End Date Code Location Performer Type Date OFFICE 44782 ETHAN LÓPEZ OUTPATIEN 7 7 HEALTH T VISIT SOLUTIONS 25 IN MINUTES OFFICE 58965 ETHAN LÓPEZ OUTPATIEN 7 7 HEALTH T VISIT SOLUTIONS 25 IN MINUTES EMERGENCY 99395 [facility] TODD 7 7 PHYSICIAN DEPARTMEN S, [facility] T VISIT HIGH/URGE NT SEVERITY [facility]OSP[facility] OUTPATIEN INC T EMERGENCY 42583 [facility] 7 7 [facility] DEPARTMEN INC T VISIT MODERATE SEVERITY [facility] 7 [facility] OUTPATIEN INC T OFFICE 15092 ETHAN LÓPEZ OUTPATIEN 7 7 HEALTH T VISIT SOLUTIONS 25 IN MINUTES OFFICE 35215 ETHAN LÓPEZ OUTPATIEN 7 7 HEALTH T VISIT SOLUTIONS 15 IN MINUTES OFFICE 88149 [facility] SANCHEZ YOUNG 7 7 PHYSICIAN T VISIT S GROUP 25 MINUTES OFFICE 41170 [facility] AMADEO CONSULTAT 7 7 PHYSICIAN ION S GROUP NEW/ESTAB PATIENT 40 MIN [facility]OSP[facility] 7 7 [facility] OUTPATIEN INC T OFFICE 40368 ETHAN RENE OUTPATIEN 7 7 HEALTH T VISIT SOLUTIONS 25 IN MINUTES OFFICE 70750 [facility] OUTPATIEN 7 7 PHYSICIAN T VISIT S GROUP 15 MINUTES [facility] 7 [facility] OUTPATIEN INC T OFFICE 29341 [facility] OUTPATIEN 7 7 PHYSICIAN T VISIT S GROUP 10 MINUTES OFFICE 89007 ETHAN CUSICK OUTPATIEN 7 7 HEALTH T VISIT SOLUTIONS 15 IN MINUTES [facility] 7 7 [facility] OUTPATI[facility] INC T OFFICE 42525 [facility] OUTPAT[facility] 7 7 HEALTH T VISIT SOLUTIONS 25 IN MINUTES EMERGENCY 61054 [facility] 7 7 [facility] DEPARTMEN INC T VISIT HIGH/URGE NT SEVERITY EMERGENCY 23933 [facility] DEPT 7 7 PHYSICIAN VISIT S, PLLC HIGH SEVERITY& THREAT RUST [facility] - 7 7 [facility] OUTPATIEN INC T EMERGENCY 04143 [facility] DEPT 7 7 PHYSICIAN VISIT S, PLLC HIGH SEVERITY& THREAT [facility] OFFICE 32320 KULDIP WHYTE OUTPATIEN 7 7 [facility] T VISIT MEDICAL 10 G MINUTES OFFICE 58221 [facility] OUTPATIEN 7 7 PHYSICIAN T VISIT S GROUP 15 MINUTES OFFICE 69498 ETHAN RENE OUTPATIEN 7 7 HEALTH T VISIT SOLUTIONS 25 IN MINUTES [facility] 6 6 [facility] 6 6 [facility] T [facility] 6 6 [facility] T [facility] 6 [facility] OUTPATIEN INC T OFFICE 20067 [facility] OUTPATIEN 6 6 PHYSICIAN SERENA T VISIT S GROUP 15 MINUTES [facility]OSPITAL [facility] - 6 6 [facility] OUTPATIEN INC T OFFICE 83991 [facility] OUTPATIEN 6 6 PHYSICIAN SERENA T VISIT S GROUP 15 MINUTES OFFICE 99200 [facility] OUTPATIEN 6 6 PHYSICIAN SERENA T VISIT S GROUP 25 MINUTES OFFICE 18339 [facility] OUTPATIEN 6 6 PHYSICIAN SERENA T VISIT S GROUP 15 MINUTES [facility]OSPITAL [facility] - 6 6 [facility] OUTPATIEN INC T OFFICE 71958 [facility] OUTPATIEN 6 6 PHYSICIAN SERENA T VISIT S GROUP 25 MINUTES OFFICE 28039 [facility] OUTPATIEN 6 6 PHYSICIAN SERENA T VISIT S GROUP 25 MINUTES [facility]OSPITAL [facility] - 6 6 [facility] INC T OFFICE 33236 JOSE BRADFORD OUTPATIEN 6 6 SANCHEZ LYONS T VISIT 25 MINUTES [facility]OSPITAL [facility] - 6 6 [facility] OUTPATIEN INC T OFFICE 66411 JOSE BRADFORD OUTPATIEN 6 6 SANCHEZ MORE SERENA T VISIT 15 MINUTES OFFICE 23165 RADHA LÓPEZ OUTPATIEN 6 6 LISA NAN T VISIT URGENT 25 TREAT MINUTES EMERGENCY 57149 NWAUCHE NWAUCHE DEPT 6 6 [facility] VISIT HIGH SEVERITY& THREAT FUN OFFICE 37987 JOSE Costello [facility] OUTPATIEN 6 6 SANCHEZ LYONS T VISIT 15 MINUTES [facility]OSPITAL [facility] - 6 6 [facility]EN [facility] T OFFICE 20128 [facility] OUTPATIEN 6 6 PHYSICIAN SERENA T VISIT S GROUP 25 MINUTES EMERGENCY 40705 VORK[facility] VORKPOR 5 5 [facility] T VISIT HIGH/URGE NT SEVERITY EMERGENCY 83797 VORK[facility] VORKPOR DEPT 5 5 [facility] VISIT HIGH SEVERITY& THREAT [facility] 09208 ALFARIS ALFARIS DEPT 5 5 [facility] VISIT HIGH SEVERITY& THREAT FUN EMERGENCY 96013 SWINEY SWINEY DEPT 5 5 PAT PAT VISIT HIGH SEVERITY& THREAT [facility] OFFICE 18470 [facility] VISIT MEDICAL 15 G MINUTES [facility] 5 5 [facility] OUTPAT[facility]EN [facility] OFFICE 20451 [facility] T VISIT MEDICAL 15 G MINUTES OFFICE 89091 JOSE VALDOVINOSL OUTPATIEN 5 5 SANCHEZ LYONS T VISIT 15 MINUTES [facility] - 5 5 [facility] T OFFICE 50026 JOSE BRADFORD OUTPATIEN 5 5 SANCHEZ LYONS T VISIT 15 MINUTES OFFICE 59547 JOSE VALDOVINOSL OUTPATIEN 5 5 SANC[facility]Z [facility]YONS T VISIT 15 MINUTES [facility] 4 4 [facility] - 4 4 [facility] OUTPATIEN INC T OFFICE 68084 BEULAH LYDIA [facility]PATIEN 4 [facility] VISIT MEDICAL 15 G MINUTES EMERGENCY 73880 [facility] VANEGAS 4 4 [facility] T VISIT P LOW/MODER SEVERITY OFFICE 76556 JOSE BRADFORD OUTPATIEN 4 4 SANCHEZ LYONS T VISIT 15 MINUTES OFFICE 37531 JOSE BRADFORD OUTPATIEN 4 4 SANCHEZ [facility]YONS T VISIT 15 MINUTES [facility]OSPITAL [facility] - 4 4 [facility] INPATIENT INC OFFICE 64799 JOSE BRADFORD OUTPATIEN 4 4 SANCHEZ LYONS T VISIT 15 MINUTES OFFICE 64343 JOSE BRADFORD OUTPATIEN 4 4 S[facility] T VISIT 15 MINUTES OFFICE 99542 JOSE BRADFORD OUTPATIEN 4 4 SANC[facility]Z [facility]YONS T VISIT 15 MINUTES OFFICE 67331 AGGIE MARCIAL OUTPATIEN 4 4 TEGAN TEGAN T VISIT 15 MINUTES [facility] INC T OFFICE 91866 AGGIE MARCIAL OUTPATIEN 4 4 TEGAN TEGAN T VISIT 15 MINUTES EMERGENCY 57881 [facility] DEPT 4 4 BRO BRO VISIT HIGH SEVERITY& THREAT FUN [facility]OSP[facility] - 4 4 [facility] OUTPATIEN INC T OFFICE 54886 JOSE BRADFORD OUTPATIEN 4 4 SANCHEZ [facility]YONS T VISIT 15 MINUTES [facility]PITAL [facility] - 4 4 [facility] OUTPATIEN INC T OFFICE 78651 JOSEAARON ANNAPEL OUTPATIEN 4 4 SANC[facility]Z [facility] T VISIT 15 MINUTES OFFICE 28319 JOSE ANNAPEL OUTPATIEN 4 4 SANCHEZ MORE SERENA T VISIT 15 MINUTES OFFICE 30642 JOSE Costello [place] OUTPATIEN 4 4 SANC[facility]Z [facility] T VISIT 15 MINUTES [facility] 4 [facility] OUTPATI[facility] INC T OFFICE 68154 JOSE Costello [facility] OUTPATIEN 4 4 SANCHEZ MORE SERENA T VISIT 15 MINUTES OFFICE 14241 JOSE ANNAPEL OUTPATIEN 4 4 SANCHEZ MORE SERENA T VISIT 15 MINUTES [facility] - 4 [facility] OUTPATIEN INC T OFFICE 86946 JOSE Costello [facility] OUTPATIEN 4 4 SANCHEZ MORE SERENA T VISIT 15 MINUTES OFFICE 61199 JOSE Costello [facility] OUTPATIEN 4 4 SANCHEZ MORE SERENA T VISIT 15 MINUTES OFFICE 39921 JOSE ANNAPEL OUTPATIEN 3 3 SANCHEZ [facility]YONS T VISIT 15 MINUTES [facility] - 3 3 [facility] OUTPATIEN INC T EMERGENCY 56144 [facility] 3 3 [facility] DEPARTMEN INC T VISIT LOW/MODER SEVERITY EMERGENCY 49133 NANCY FORD DEPT 3 3 EMERGENCY III [facility] HIGH SEVERITY& THREAT FUNCJ PERIODIC 85585 JOSE BRADFORD PREVENTIV 3 3 SANCHEZ [facility] E MED EST PATIENT 18-39 YRS OFFICE 58254 RADHA GARCIA OUTPATIEN 3 3 [facility] [employer] [facility] T DEPT DEPT MINUTES
--- OUTSIDE RECORDS SUMMARY | 2017-07-27 17:03 | External Medical Summary Rpt | CCD ---
Author Author , ARGELIA Organization ARGELIA Address Unknown Phone Care Team Providers Care Diecast Machine Operator Name Role Phone ALFARIS MOH, ALFARIS Unavailable Unavailable MOH ALFARIS MOH, ALFARIS Unavailable Unavailable MOH HUTTON BRO, HUTTON Unavailable Unavailable BRO HUTTON BRO, HUTTON Unavailable Unavailable BRO BESSON NELLY, BESSON Unavailable Unavailable NELLY [facility] Unavailable [facility]available [facility], [facility] Unavailable Unavailable [facility], [facility] RAMSEY, RAMSEY Unavailable Unavailable RAMSEY ALL, RAMSEY ALL Unavailable Unavailable [facility] Unavailable Unavailable HOSPITAL, [facility]available Unavailable SERVICE, [facility] Unavailable Unavailable SERVICE, [facility] CHEN JAM, CHEN JAM Unavailable Unavailable MARCIAL TEGAN, MARCIAL Unavailable Unavailable TEGAN [facility], Unavailable Unavailable [facility] Unavailable Unavailable [place], [facility] Un[facility] Unavailable [facility], [facility] Unavailable Unavailable THE BLUE, [facility] COOK, [...] Unavailable Unavailable INC, [facility] Unavailable Unavailable HOSPITAL P, [facility], Unavailable Unavailable [facility] RENE LÓPEZ Unavailable Unavailable RENE MADERA Unavailable Unavailable ALEAH [facility] Un[facility], [facility] Unavailable Unavailable MEDICAL G, [facility], [facility] Unavailable Unavailable HOLDINGS, [facility] RAS JR, RAS JR Unavailable Unavailable RAS JR DWI, RAS Unavailable Unavailable JR DWI RAS JR DWI, RAS Unavailable Unavailable JR DWI [facility], Unavailable Unavailable NANC[facility] GRE [facility], Unavailable Unavailable [facility] Unavailable Unavailable SERVICES, [facility] Unavailable Unavailable DEPT[facility] DEPT [facility] Unavailable Unavailable DEPT, [facility] DEPT [facility] Unavailable Unavailable URGENT TREAT, [facility] [place] [facility] Unavailable Unavailable [facility] Unavailable Un[facility], Unavailable Unavailable PLL[facility], [facility] AMADEO, AMADEO Unavailable Unavailable RENUSCH, RENUSCH Unavailable Unavailable SCALF JED, SCALF JED Unavailable Unavailable SCHUSTER CELSO, SCHUSTER CELSO Unavailable Unavailable MICHAELA, MICHAELA Unavailable Unavailable MICHAELA SHE, Unavailable Unavailable MICHAELA SHE [facility] Unavailable Unavailable SOLUTIONS IN, [facility] [...] [facility] IN HEALTH BREAST SOLUTIONS IN [id number] STRAIN UNS 05-13-2017 [facility] W[facility]ST HAND SOLUTIONS LEVEL UNS IN INITIAL K219 GASTRO-ESOP 05-12-2017 [facility]UX [facility] DISEASE INC WITHOUT ESOPHAGITIS H33379 OTH 05-12-2017 [facility] INVOLV MUSCULOSKEL ETAL SYS [id number] UNSPECIFIED 05-12-2017 [facility], LEFT WRIST PLLC INITIAL ENCOUNTER Z720 TOBACCO USE 05-12-2017 [facility] N644 MASTODYNIA 05-04-2017 [facility] R109 UNSPECIFIED 05-04-2017 [facility] ABDOMINAL [facility] PAIN IMAGING ASS K5900 CONSTIPATIO 04-01-2017 [facility] UNSPECIFIED SOLUTIONS IN K8080 OTHER 03-22-2017 [facility] CHOLELITHIA PHYSICIANS SIS WITHOUT GROUP OBSTRUCTION N951 MENOPAUSAL 03-22-2017 [facility] AND FEMALE PHYSICIANS CLIMACTERIC GROUP STATES R1013 EPIGASTRIC 03-15-2017 [facility] PAIN PHYSICIANS GROUP R198 OTH SPEC SX 03-15-2017 [facility] & SIGNS PHYSICIANS INVLV THE GROUP DIGESTV SYS & ABD R110 NAUSEA 2017 [facility] R140 ABDOMINAL 2017 [facility]ION MEDICAL GASEOUS IMAGING ASS [id number] PAIN IN 03-03-2017 [facility] RIGHT LEG HEALTH SOLUTIONS IN Q16483 PAIN IN 03-03-2017 [facility] LEFT LEG HEALTH SOLUTIONS IN R6882 DECREASED 02-05-2017 [facility] LIBIDO PHYSICIANS GROUP R0600 DYSPNEA 02-03-2017 [facility] UNSPECIFIED HEALTH SOLUTIONS IN R635 ABNORMAL 02-03-2017 [facility] WEIGHT GAIN HEALTH SOLUTIONS IN R1010 UPPER 02-02-2017 [facility]AL [facility], PAIN PLLC UNSPECIFIED Z888 ALLERGY 02-02-2017 [facility] MED[facility] & INC BIOLOG SUBSTANC STS K1121 ACUTE 01-21-2017 [facility] SIALOADENIT HEALTH IS SOLUTIONS IN R000 TACHYCARDIA 01-21-2017 [facility] UNSPECIFIED MEDICAL G R002 PALPITATION 01-21-2017 [facility] MEDICAL G R1084 GENERALIZED 01-21-2017 [facility] ABDOMINAL HEALTH PAIN SOLUTIONS IN N736 FEMALE 09-29-2016 [facility] P ADHESIONS POSTINFECTI VE R102 PELVIC AND 09-29-2016 COMM[facility]ITY PERINEAL ANESTH OF PAIN THE BLUE N390 URINARY 09-01-2016 [facility] TRACT PHYSICIANS INFECTION GROUP SITE NOT SPECIFIED N3001 ACUTE 08-14-2016 [facility] CYSTITIS PHYSICIANS WITH GROUP HEMATURIA D259 LEIOMYOMA 08-04-2016 [facility] UNSPECIFIED N72 INFLAMMATOR 08-04-2016 [facility] Y DISEASE [facility] OF CERVIX UTERI N938 OTHER SPEC 08-04-2016 [facility] ABNORMAL PHYSICIANS UTERINE & GROUP VAGINAL BLEEDING N939 ABNORMAL 08-04-2016 COMMUNITY UTERINE & ANESTH OF VAGINAL THE BLUE BLEEDING UNSPECIFIED N761 SUBACUTE 07-31-2016 [facility] AND CHRONIC PHYSICIANS VAGINITIS GROUP N920 EXCESS & 07-31-2016 [facility]QUENT [facility] MENSTRUATIO INC N W/REGULAR CYCLE N94151 ENCOUNTER 07-31-2016 [facility] FOR OTHER MEM [facility] PREPROCEDUR INC AL EXAMINATION K5289 OT SPEC 06-18-2016 [facility] NONINFECTIV PHYSICIANS E GROUP GASTROENTER ITIS & COLITIS Z0100 ENCOUNTER 03-20-2016 [facility] EXAM EYES & GRE VISION W/O ABNORMAL FIND R0602 SHORTNESS 11-22-2015 [facility] [place] OF BREATH RADIOLOGY K210 GASTRO-ESOP 11-14-2015 [facility] REFLUX URGENT DISEASE W/ TREAT ESOPHAGITIS M545 LOW BACK 11-14-2015 [facility] URGENT TREAT N831 CORPUS 10-31-2015 JOSE Costello LUTEUM CYST SANCHEZ MORE N9489 OTH COND 10-31-2015 JOSE Costello ASSOC W/FE SANCHEZ MORE GEN ORGN & MENSTRUAL CYCL 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 V76911 PAIN IN 08-15-2015 [facility] LEFT WRIST K9747TZ UNSPECIFIED 08-15-2015 [facility] [place] INJURY [place] RADIOLOGY WRIST HAND FINGERS INITIAL N201 CALCULUS OF 07-28-2015 [facility] URETER N23 UNSPECIFIED 07-28-2015 [facility] RENAL COLIC N3000 ACUTE 07-28-2015 [facility] CYSTITIS WITHOUT HEMATURIA 0340 STREPTOCOCC 06-12-2015 [facility] 15732 OTHER CHEST 06-12-2015 ALFARIS MOH PAIN V148 PERSONAL 06-12-2015 [place] [facility] SPEC MEDICINAL AGTS 77249 VOLUME 06-11-2015 [facility] PAT DEPLETION UNSPECIFIED 2768 HYPOPOTASSE 06-11-2015 [facility] PAT CICI 17896 CHEST PAIN 06-11-2015 [facility] [place] UNSPECIFIED RADIOLOGY 38556 PAINFUL 06-11-2015 [facility] PAT RESPIRATION 57910 OTHER 06-07-2015 [facility] C[facility] MEDICAL G DYSRHYTHMIA S 7851 PALPITATION 06-07-2015 [facility] MEDICAL G V1259 PERS HX, 06-04-2015 RAS JR OTHER DWI DISEASES OF CIRCULATORY SYSTEM 6259 UNSPEC 02-19-2015 COMMUNITY SYMPTOM ANESTH OF ASSOC THE BLUE W/FEMALE GENITAL ORGANS V7283 OTHER 02-11-2015 [facility] SPECIFIED [facility] PRE-OPERATI INC VE EXAMINATION 6238 OTHER 02-08-2015 [facility] SPECIFIED MEDICAL NONINFLAMMA IMAGING ASS TORY DISORDER VAGINA 6262 EXCESSIVE 02-04-2015 JOSE Costello OR LOTTIE BRADFORD MD MENSTRUATIO N 7850 UNSPECIFIED 10-02-2014 [facility] 4279 UNSPECIFIED 09-15-2014 [facility] CARDIAC MEDICAL DYSRHYTHMIA IMAGING ASS V242 ROUTINE 06-07-2014 [facility] FOLLOW-UP LABORATORIE S 5990 URINARY 05-25-2014 JOSE Costello TRACT SANCHEZ MORE INFECTION SITE NOT SPECIFIED 25346 TRANSIENT 05-01-2014 JOSE BRADFORD MD N OF W/DELIVERY 09285 FETOPELVIC 05-01-2014 JOSE Costello DISPROPORTI SANCHEZ MORE ON, DELIVERED 73569 PRIMARY 05-01-2014 [facility] UTERINE ANESTH OF INERTIA THE BLUE WITH DELIVERY 20815 C/S DELIV 05-01-2014 JOSE Costello W/O INDICAT SANCHEZ MORE DELIV W/WO ANTPRTM COND V270 OUTCOME OF 05-01-2014 JOSE Costello DELIVERY SANCHEZ MORE SINGLE LIVEBORN 34784 MILD OR 04-30-2014 [facility]NSPECIFIED [facility] INC PRE-ECLAMPS IA WITH DELIVERY V221 SUPERVISION 04-30-2014 JOSE BRADFORD MD NORMAL 05535 TRANSIENT 04-26-2014 JOSE BRADFORD MD N OF ANTEPARTUM V220 SUPERVISION 04-09-2014 [facility] [address] OTHER 03-27-2014 ANNI MARIE SPECIFED COMPLICATIO N ANTEPARTUM V286 SCREENING 03-23-2014 [facility] [place] [address] THREATENED 03-21-2014 [facility] PREMATURE [facility] LABOR INC ANTEPARTUM V771 SCREENING 02-03-2014 [facility] FOR [facility] DIABETES INC MELLITUS V2889 OTHER 12-07-2013 [facility] SPECIFIED [facility] INC SCREENING 74517 PAIN IN 09-14-2013 [facility], AMBULANCE LOWER LEG SERVICE 8449 SPRAIN&STRA 09-14-2013 N[facility] IN OF EMERGENCY UNSPECIFIED SERVICES SITE OF KNEE&LEG 8470 NECK SPRAIN 09-14-2013 [facility] AND STRAIN EMERGENCY SERVICES 9222 CONTUSION 09-14-2013 [facility] OF [facility] ABDOMINAL INC WALL E8120 OTH MOTR 09-14-2013 [facility] EMERGENCY W/MOTR SERVICES VEH-INJR MV TEMPERING KILN TENDER E8150 OTH MOTR 09-14-2013 [facility] AMB[facility]ANCE W/OBJ SERVICE HIWAY-INJUR ING TEMPERING KILN TENDER V222 09-14-2013 [facility] INCIDENTAL INC V704 EXAMINATION 09-05-2013 [facility] FOR RE[facility] MEDICOLEGAL LABORATORIE REASON S V7231 ROUTINE 09-05-2013 JOSE BRADFORD MD AL EXAMINATION V2509 OT GENERAL 08-30-2013 [facility] CNSL&ADVICE DEPT CONTRACEPT MANAGEMENT V2689 OTHER 08-30-2013 [facility] SPECIFIED HEALTH PROCREATIVE DEPT MANAGEMENT V7242 08-30-2013 [facility] EXAMINATION HEALTH OR TEST DEPT POSITIVE RESULT [...] 77 LE RA 30 17 [address] DE UG S 10 [...] 07 08 60 30 00 CA Ac VA 46 -1 -1 .0 00 RL ti [...] 17 17 24 FA LE 0 43 TX LY SO D DR DR BELTRAN 40 [...] 17 17 24 FA LE 0 43 TX LY SO D DR DR BELTRAN 40 [...] 25 17 17 23 FA 0 61 TX HC LY L 10 DR UG MG [...] 17 17 13 FA 2 2 77 TX MG LY TA DR BL UG ET [...] OM 60 04 05 30 30 00 VT Ac EP 50 -0 -0 .0 00 L- ti RA 50 7- 5- 00 07 MA ve ZO 14 20 20 40 RT LE 60 17 [address] AR MA 40 CY MG #4 93 CA PS UL E PA 68 04 04 30 30 00 VT Ac RO 38 -0 -2 .0 00 L- ti XE 20 1- 8- 00 07 MA ve TI 00 20 20 39 RT NE 10 17 17 10 6 20 PH HC AR L MA 40 CY MG #4 93 TA BL ET GA 53 04 04 90 30 00 VT Ac BA 74 -0 -2 .0 00 L- ti PE 60 1- 8- 00 07 MA ve NT 10 20 20 39 RT IN 20 17 17 11 5 64 PH 30 AR 0 MA MG CY CA #4 PS 93 UL E AT 00 04 04 30 30 00 VT Ac EN 78 -0 -2 .0 00 L- ti OL 11 4- 8- 00 07 MA ve OL 07 20 20 40 RT 80 17 17 22 25 1 58 PH AR MG MA CY TA BL #4 ET 93 GA 53 03 03 90 30 00 VT Ac BA 74 -0 -3 .0 00 L- ti PE 60 4- 1- 00 07 MA ve NT 10 20 20 39 RT IN 20 17 17 11 5 64 PH 30 AR 0 MA MG CY CA #4 PS 93 UL E FI 00 03 03 60 30 00 VT Ac BE 00 -0 -3 .0 00 L- ti RC 52 6- 1- 00 08 MA ve ON 50 20 20 83 RT 02 17 17 76 62 3 04 PH 5 AR MG MA CY CA PL #4 ET 93 OM 60 03 03 30 30 00 VT Ac EP 50 -0 -3 .0 00 [...] 17 17 10 E 5 23 PH VA AR OP MA CY 50 #4 MC [...] GA 16 01 02 60 30 00 VT Ac BA 71 -1 -1 .0 00 L- ti PE 40 4- 0- 00 07 MA ve NT 50 20 20 38 RT IN 40 17 17 50 2 72 PH 30 AR 0 MA MG CY CA #4 PS 93 UL E OM 60 01 02 30 30 00 VT Ac EP 50 -1 -0 .0 00 L- ti RA 50 1- 3- 00 07 MA ve ZO 14 20 20 37 RT LE 60 17 17 [address] AR MA 40 CY MG #4 93 CA PS UL E PA 54 01 30 30 00 VT Ac RO 45 -0 -2 .0 00 L- ti XE 80 4- 7- 00 07 MA ve TI 98 20 20 38 RT NE 91 17 17 50 0 71 PH HC AR L MA 20 CY MG #4 93 TA BL ET FI 00 12 01 60 30 00 VT Ac BE 00 -2 -2 .0 00 L- ti RC 52 3- 0- 00 08 MA ve ON 50 20 20 83 RT 02 16 17 76 62 3 04 PH 5 AR MG MA CY CA PL #4 ET 93 PA 68 12 01 6. 7 00 VT Ac RO 38 -2 -2 00 00 [...] 16 17 14 FA ON 1 52 TX E LY [address] UG TA BL ET OM 00 12 01 30 30 00 VT Ac EP 78 -1 -1 .0 00 L- ti RA 12 6- 3- 00 07 MA ve ZO 23 20 20 37 RT LE 43 16 17 [address] AR MA 40 CY MG #4 93 CA PS UL E GA 65 12 01 60 30 00 VT Ac BA 16 -1 -1 .0 00 [...] 30 16 17 01 FA 5 24 TX [address] UG CA PS UL E Procedures Procedure DOS Code Location Performer Comment CURRENT 1034F [employer] TOBACCO 7 HEALTH SMOKER SOLUTIONS IN TOBACCO 1000F [employer] USE 7 HEALTH ASSESSED SOLUTIONS IN BODY MASS 3008F [employer] INDEX 7 HEALTH DOCUMENTE SOLUTIONS D IN BODY MASS 3008F [employer] INDEX 7 HEALTH DOCUMENTE SOLUTIONS D IN TOBACCO 1000F [employer] USE 7 HEALTH ASSESSED SOLUTIONS IN CURRENT 1034F [employer] TOBACCO 7 HEALTH SMOKER SOLUTIONS IN RADEX 05226 [facility] WRIST 7 [facility] COMPLETE INC INC MINIMUM 3 VIEWS APPLICATI 54576 [facility] ON SHORT 7 [facility] ARM INC INC SPLINT FOREARM-H AND STATIC US BREAST 35614 [facility] UNI REAL 7 [facility] TIME INC INC WITH IMAGE COMPLETE US BREAST 16757 [facility] YA UNI REAL 7 MEDICAL [place] [address] [facility] TRACT UPR 7 MEM HOSP [facility] W/SM INT INC INC W/MULT SERIAL IMAGES RAD EXP G9500 [facility] RAMSEY INDICES/E 7 MEDICAL XP TM & IMAGING NUMB ASS FLUORO IMAGES DOC FINAL G9551 [facility] ROXY REPR ABD 7 MEDICAL IMAG STS IMAGING W/[place] [address] [facility] ABDOMINAL 7 [facility] REAL INC [place] [address] [facility] ABDOMINAL 7 MEDICAL REAL IMAGING [place] W/[place] [address] [facility] THYROID 7 [facility] STIMULATI INC INC NG HORMONE TSH COLLECTIO 41617 [facility] N VENOUS 7 [facility] BLOOD INC INC VENIPUNCT URE GONADOTRO 15559 [facility] PIN 7 [facility] LUTEINIZI INC INC NG HORMONE GONADOTRO 92402 [facility] PIN 7 [facility] FOLLICLE [place] [address] [facility] TESTOSTER 7 [facility] [place] [address] [facility] LIPASE 7 [facility] INC INC COLLECTIO 73193 ETHAN LÓPEZ N VENOUS 7 HEALTH BLOOD SOLUTIONS VENIPUNCT IN URE CURRENT 1034F ETHAN LÓPEZ TOBACCO [place] [address] [facility] INFUSION 7 [facility] THERAPY/P INC INC ROPHYLAXI S /DX 1ST TO 1 HR THERAPEUT 57147 [facility] IC 7 [facility] INJECTION INC [place] [address] [facility] AMYLASE 7 [facility] INC INC BLOOD 39127 [facility] COUNT 7 [facility] COMPLETE INC INC AUTO&AUTO DIFRNTL WBC TOBACCO 1000F ETHAN LÓPEZ USE 7 HEALTH ASSESSED SOLUTIONS IN GENERAL 30832 [facility] [address] [place] [address] PANEL HOLDINGS HOLDINGS BODY MASS 3008F ETHAN LÓPEZ INDEX 7 HEALTH DOCUMENTE SOLUTIONS D IN COMPREHEN 30435 [facility] SIVE 7 [facility] METABOLIC INC INC PANEL FINAL G9551 ANTHONY RAMSEY REPR ABD 7 MEDICAL IMAG STS IMAGING W/O ASS INCIDNT FND LES NTD: THERAPEUT 94770 [facility] IC 7 [facility] INJECTION INC INC IV PUSH EACH NEW DRUG FINAL G9638 ANTHONY ROXY REPORTS 7 MEDICAL W/O DOC IMAGING 1/[place] [address] [facility] LIPASE 7 [place] [address] [facility] ABDOMEN & 7 MEDICAL PELVIS IMAGING W/O ASS CONTRAST MATERIAL ANESTHESI 08353 [facility] A 6 ANESTH INTRAPERI OF THE TONEAL BLUE LOWER ABD W/LAPS NOS ECG 07472 [facility] MCGINNIS JR ROUTINE 6 [facility] W/LEAST P 12 LDS I&R ONLY BASIC 64092 [facility] METABOLIC 6 [facility] PANEL INC INC CALCIUM TOTAL BLOOD 66180 [facility] COUNT 6 [facility] COMPLETE INC INC AUTO&AUTO DIFRNTL WBC URNLS DIP 67742 [facility] 6 [facility] STICK/TAB INC [place] [address] [facility] YA TRANSVAGI 6 MEDICAL NAL IMAGING ASS COLLECTIO 38392 [facility] N VENOUS 6 [facility] [place] [address] [facility] RAM[facility] ALL TRANSVAGI 6 MEDICAL NAL IMAGING ASS URINLS 39710 [facility] DIP 6 PHYSICIAN SERENA STICK/TAB S GROUP LET REAGNT NON-AUTO MICRSCPY CULTURE 16526 [facility] BACTERIAL 6 [facility] INC INC QUANTTATI VE COLONY COUNT URINE URINLS 42477 [facility] DIP 6 PHYSICIAN SERENA STICK/TAB S GROUP LET REAGNT NON-AUTO MICRSCPY HOSPITAL G0378 [facility] OBSERVATI 6 [facility] ON INC INC SERVICE PER HOUR NONINVASI 64074 [facility] VE 6 [facility] EAR/PULSE INC INC OXIMETRY OVERNIGHT MONITOR LAPS 19757 [facility] VAGINAL 6 PHYSICIAN SERENA HYSTERECT S GROUP LIZETH UTERUS 250 GM/< ANESTHESI 54011 [facility] A VAGINAL 6 ANESTH SHE OF THE HYSTERECT BLUE LIZETH INCL BIOPSY CULTURE 78997 [facility] BACTERIAL 6 [facility]OS[facility] INC INC QUANTTATI VE COLONY COUNT URINE COLLECTIO 39882 [facility] N VENOUS 6 [facility] BLOOD INC INC [place]CT [place] V [address] [facility] PATHOLOGY GROSS&TREY ROSCOPIC EXAM URNLS DIP 52160 [facility] 6 [facility] STICK/TAB INC INC LET REAGENT AUTO MICROSCOP Y BLOOD 34217 [facility] COUNT 6 [facility] HEMOGLOBI INC INC N TOBACCO 36170 [facility] USE 6 [facility] CESSATION INC INC INTERMEDI ATE 3-10 MINUTES BLOOD 00472 [facility] COUNT 6 [facility] HEMATOCRI INC INC T HOSPITAL G0378 [facility] OBSERVATI 6 [facility] ON INC INC SERVICE PER HOUR GONADOTRO 78210 [facility] PIN 6 [facility] MEM HOS[facility] CHORIONIC INC INC QUALITATI VE BLOOD 18783 TOLUROGELIO SEQUEIRAON COUNT 6 MEM HOS[facility] COMPLETE INC INC AUTO&AUTO DIFRNTL WBC URNLS DIP 34124 [facility] SEQUEIRAON 6 [facility]OS[facility] STICK/TAB INC INC LET REAGENT AUTO MICROSCOP Y COLLECTIO 33657 [facility] N VENOUS 6 [facility] HOS[facility]OS[facility] BLOOD INC INC VENIPUNCT URE SMR PRIM 02933 [facility] SRC WET 6 PHYSICIAN SERENA MOUNT S GROUP NFCT AGT THERAPEUT 88353 [facility] IC 6 PHYSICIAN SERENA PROPHYLAC S GROUP TIC/[place] INJE[place] SUBQ/[place] [address] [facility] ALL ABDOMEN & 6 MEDICAL PELVIS IMAGING W/CONTRAS ASS T MATERIAL THERAPEUT 08999 [facility] IC 6 PHYSICIAN SERENA PROPHYLAC S GROUP TIC/DX INJECTION SUBQ/IM HGB 39504 [facility] QUANTITAT 6 PHYSICIAN SERENA ARLETTE S GROUP TRANSCUTA NEOUS OPHTH 25434 [facility] 6 GRE GRE XM&EVAL COMPRE NEW PT 1/> VST COLLECTIO 67070 [facility] N VENOUS 6 [facility] [place]LOOD [place] [address] [facility] SURG 6 [facility] PATHOLOGY GROSS&TREY ROSCOPIC EXAM HYSTEROSC 62524 [facility] OPY BX 6 PHYSICIAN SERENA ENDOMETRI S GROUP UM&/POLYP C W/WO D&C BLOOD 67467 [facility] COUNT 6 [facility] HEMOGLOBI INC INC N BLOOD 08906 [facility] COUNT 6 [facility] HEMATOCRI INC INC T ANES 57986 [facility] HY[facility] 6 ANESTH REE OPY&/HYST OF THE EROSALPIN BLUE GOGRAPHY W/BX INJECTION J0131 [facility] 6 [facility] ACETAMINO INC INC PHEN 10 MG ECG 61564 BESSON BESSON ROUTINE 6 NELLY NELLY ECG W/LEAST 12 LDS I&R ONLY INJECTION J2405 [facility] 6 [facility] ONDANSETR INC INC ON HCL PER 1 MG BLOOD 60379 [facility] COUNT 6 [facility] COMPLETE INC INC AUTO&AUTO DIFRNTL WBC GONADOTRO 61078 [facility] PIN 6 [facility] CHORIONIC INC INC QUALITATI VE URNLS DIP 92915 [facility] 6 [facility] STICK/TAB INC INC LET REAGENT AUTO MICROSCOP Y COLLECTIO 95236 [facility] N VENOUS 6 [facility] BLOOD INC INC VENIPUNCT URE SMR PRIM 09468 JOSE BRADFORD SRC WET 6 S[facility]Z [facility] NFCT AGT RADIOLOGI 99354 [facility] MILES CHEN JAM C 6 RADIOLOGY EXAMINATI ON CHEST SINGLE VIEW FRONTAL RADEX 56094 NWAUCHE NWAUCHE SPINE 6 [facility] LUMBOSACR AL 2/3 [place] [address] [facility] ALL TRANSVAGI 6 MEDICAL NAL IMAGING ASS RADEX 31749 [facility] MILES VETO WRIST 5 RADIOLOGY RHO COMPLETE MINIMUM 3 VIEWS RADEX 94642 [facility] VORKPOR WRIST 2 [address] [facility] [place] [address] [facility] MILES VETO ABDOMEN & 5 RADIOLOGY RHO PELVIS W/O CONTRAST MATERIAL THERAPEUT 70520 JOAN FRANCO IC [address] [facility] TIC/DX INJECTION SUBQ/IM ECG 09804 ALFARIS ALFARIS ROUTINE 5 MOH MOH ECG W/LEAST 12 LDS I&R ONLY ECG 46866 SWINEY SWINEY ROUTINE 5 PAT PAT ECG W/LEAST 12 LDS I&R ONLY RADIOLOGI 16258 [facility] [place] SCALF JED C EXAM 5 RADIOLOGY CHEST 2 VIEWS FRONTAL&L ATERAL RADIOLOGI 39037 SWINEY SWINEY C 5 PAT PAT EXAMINATI ON CHEST SINGLE VIEW FRONTAL EXTERNAL 14238 [facility] ECG 5 [facility] SCANNING INC INC ANALYSIS REPORT XTRNL ECG 56361 [facility] & 48 HR 5 [facility] RECORDING INC INC XTRNL ECG 68516 RAS MCGINNIS JR 5 DWI DWI CONTINUOU S RHYTHM W/I&R UP TO 48 HRS ANESTHESI 53448 [facility] ANESTH [facility] DEL [facility] BL[facility] LOWER ABD W/LAPS NOS GONADOTRO 24673 [facility] PIN 5 [facility] CHORIONIC INC INC QUALITATI VE BLOOD 85060 [facility] COUNT 5 [facility] COMPLETE INC INC AUTO&AUTO DIFRNTL WBC URNLS DIP 90939 [facility] 5 [facility] STICK/TAB INC INC LET REAGENT AUTO MICROSCOP Y COLLECTIO 82539 [facility] N VENOUS 5 [facility] [place] [address] [facility]SV[facility] MEDICAL NAL IMAGING ASS ECHO 27374 MILES SCHUSTER CELSO TTHRC R-T 4 MEDICAL 2D SERV W/WOM-MOD FOUNDATIO E COMPL N SPEC&[place] [address] [facility] THYROID 4 [facility] STIMULATI INC INC NG HORMONE TSH ECG 97826 RAS MCGINNIS JR ROUTINE 4 DWI DWI ECG W/LEAST 12 LDS I&R ONLY RADIOLOGI 99965 [place] YA C EXAM 4 MEDICAL SHAILA CHEST 2 IMAGING VIEWS ASS FRONTAL&L ATERAL CYTP C/V 22211 BIO BIO AUTO THIN 4 REFERNCE REFERNCE LYR LABORATOR LABORATOR PREPJ SCR IES IES MNL RESCR PHYS 60148 JOSE BRADFORD DELIVERY 4 SANCHEZ MORE SERENA ONLY W/POSTPAR TG CARE NEURAXIAL 76732 [facility] OBANDO EVANGELISTA LABOR 4 ANESTH ANALG/ANE OF THE S PLND BLUE VAGINAL DELIVERY 97718 JOSE BRADFORD BIOPHYSIC 4 SANCHEZ LYONS AL PROFILE NON-STRES S TESTING LOW 741 [facility] CERVICAL 4 [facility] INC INC SECTION 90339 JOSE BRADFORD NONSTRESS 4 SANCHEZ MORE SERENA TEST CUL BACT 56459 COMBINED COMBINED XCPT 4 PHYSICIAN PHYSICIAN URINE S LA S LA BLOOD/STO OL AEROBIC ISOL EXTERNAL 56314 [facility] ECG 4 [facility] SCANNING INC INC ANALYSIS REPORT XTRNL ECG 25863 [facility] & 48 HR 4 [facility] RECORDING INC INC XTRNL ECG 74596 [facility]ARIMI 4 [facility] S RHYTHM P W/I&R [place] [address] [place] [address] [facility] THYROID 4 [facility] STIMULATI INC INC NG HORMONE TSH THYROID 47050 [facility] HORM 4 [facility] UPTK/THYR INC [place] [address] [facility] THYROXINE 4 [facility] TOTAL INC INC ECG 05264 HUTTON HUTTON ROUTINE 4 BRO BRO ECG W/LEAST 12 LDS I&R ONLY CUL 98399 JOSE BRADFORD PRSMPTV 4 SANCHEZ LYONS PTHGNC ORGANISM SCRN W/COLONY ESTIMJ PARTICLE 71069 [facility] AGGLUTINA 4 [facility] TION INC INC SCREEN EACH ANTIBODY 58968 [facility] NONSTRESS 4 [facility] TEST INC INC FTL 37187 [facility] IN INC INC CERVICOVA G SECRETION S SEMI-LINDA URNLS DIP 03197 [facility] STICK/TAB INC INC LET REAGENT AUTO MICROSCOP Y BLOOD 89429 [facility] COUNT [facility] COMPLETE INC INC AUTO&AUTO DIFRNTL WBC GLUCOSE 30126 [facility] POST [facility] GLUCOSE INC INC DOSE US PREG 41755 JOSE BRADFORD UTERUS 4 [facility] AFTER TRIMEST GESTATION GONADOTRO 34984 [facility] PIN [facility] CHORIONIC INC INC QUANTITAT ARLETTE ALPHA-FET 76819 [facility] OPROTEIN 4 [facility] [place] [address] [facility] ESTRIOL 4 [facility] INC INC URNLS DIP 02561 [facility] STICK/TAB INC INC LET REAGENT AUTO MICROSCOP Y GROUND A0425 [facility] MILEAGE 3 AMBULANCE AMBULANCE PER SERVICE SERVICE STATUTE MILE AMBULANCE A0429 [facility] SERVICE 3 AMBULANCE AMBULANCE BLS SERVICE SERVICE EMERGENCY TRANSPORT RADEX 37240 [facility] SPINE 3 [facility] CERVICAL INC INC 2 OR 3 VIEWS RADIOLOGI 54345 [facility] C 3 [facility] EXAMINATI INC INC ON KNEE 1/2 VIEWS US PREG 31671 [facility] UTERUS 3 [facility] REAL TIME INC INC W/IMAGE DCMTN TRANSVAG CULTURE 94713 JOSE Costello CHLAMYDIA 3 SANCHEZ BRADFORD MD ANY SOURCE IADNA 53665 BIO BIO SIMON 3 REFERNCE REFERNCE SPECIES LABORATOR LABORATOR AMPLIFIED IES IES PROBE TQ IADNA 26007 BIO BIO GARDNEREL 3 REFERNCE REFERNCE LA LABORATOR LABORATOR VAGINALIS IES IES AMPLIFIED PROBE TQ CYTP C/V 41699 BIO BIO AUTO THIN 3 REFERNCE REFERNCE LYR LABORATOR LABORATOR PREPJ SCR IES IES MNL RESCR PHYS IADNA 70509 BIO BIO CHLAMYDIA 3 REFERNCE REFERNCE LABORATOR LABORATOR TRACHOMAT IES IES IS AMPLIFIED PROBE TQ IADNA 27686 JOSE ANNAPEL HERPES 3 SANCHEZ MORE SERENA SIMPLX VIRUS DIRECT PROBE TQ IADNA 20796 BIO BIO HERPES 3 REFERNCE REFERNCE SOMPLX LABORATOR LABORATOR VIRUS IES IES AMPLIFIED PROBE TQ IADNA 10221 JOSE ANNAPEL NEISSERIA 3 SANCHEZ MORE SERENA GONORRHOE AE DIRECT PROBE TQ IADNA 68306 BIO BIO NEISSERIA 3 REFERNCE REFERNCE LABORATOR LABORATOR GONORRHOE IES IES AE AMPLIFIED PROBE TQ IADNA NOS 34141 BIO BIO 3 REFERNCE REFERNCE AMPLIFIED LABORATOR LABORATOR PROBE TQ IES IES EACH ORGANISM IAADIADOO 62413 JOSE ANNAPEL 3 SANCHEZ MORE SERENA TRICHOMON VAGINALIS URINE 37641 RADHA HERRERAS [facility] DEPT VISUAL COLOR CMPRSN METHS Encounters Encounter Start End Date Code Location Performer Type Date OFFICE 32411 ETH[facility] LÓPEZ OUTPATIEN 7 7 HEALTH T VISIT SOLUTIONS 25 IN MINUTES OFFICE 19750 ETHAN LÓPEZ OUTPATIEN 7 7 HEALTH T VISIT SOLUTIONS 25 IN MINUTES EMERGENCY 52991 [facility] TODD 7 7 PHYSICIAN DEPARTMEN S, [facility] T VISIT HIGH/URGE NT SEVERITY [facility]OSPITAL [facility] 7 7 [facility] OUTPATIEN INC T EMERGENCY 11954 [facility] 7 7 [facility] DEPARTMEN INC T VISIT MODERATE SEVERITY [facility]OSP[facility] 7 7 [facility] OUTPATIEN INC T OFFICE 76282 ETHAN LÓPEZ OUTPATIEN 7 7 HEALTH T VISIT SOLUTIONS 25 IN MINUTES OFFICE 82799 ETHAN LÓPEZ OUTPATIEN 7 7 HEALTH T VISIT SOLUTIONS 15 IN MINUTES OFFICE 36785 [facility] SANCHEZ YOUNG 7 7 PHYSICIAN T VISIT S GROUP 25 MINUTES OFFICE 36222 [facility] AMADEO CONSULTAT 7 7 PHYSICIAN ION S GROUP NEW/ESTAB PATIENT 40 MIN [facility]OSPITAL [facility] 7 [facility] OUTPATIEN INC T OFFICE 20941 ETHAN RENE OUTPATIEN 7 7 HEALTH T VISIT SOLUTIONS 25 IN MINUTES OFFICE 42872 [facility] OUTPATIEN 7 7 PHYSICIAN T VISIT S GROUP 15 MINUTES [facility] 7 7 [facility] OUTPATIEN INC T OFFICE 91214 [facility] OUTPATIEN 7 7 PHYSICIAN T VISIT S GROUP 10 MINUTES OFFICE 28692 [facility] OUTPATIEN 7 7 HEALTH T VISIT SOLUTIONS 15 IN MINUTES HOSPITAL [facility] 7 7 [facility] OUTPATIEN INC T OFFICE 86466 [facility] OUTPATIEN 7 7 HEALTH T VISIT SOLUTIONS 25 IN MINUTES EMERGENCY 27644 [facility] 7 7 [facility] DEPARTMEN INC T VISIT HIGH/URGE NT SEVERITY EMERGENCY 03448 [facility] DEPT 7 7 PHYSICIAN VISIT S, PLLC HIGH SEVERITY& THREAT [facility] - 7 7 [facility] OUTPATIEN INC T EMERGENCY 02659 [facility] DEPT 7 7 PHYSICIAN VISIT S, PLLC HIGH SEVERITY& THREAT [facility] OFFICE 82054 KULDIP WHYTE OUTPATIEN 7 7 NE HEALTH T VISIT MEDICAL 10 G MINUTES OFFICE 74095 [facility] OUTPATIEN 7 7 PHYSICIAN T VISIT S GROUP 15 MINUTES OFFICE 00689 ETHAN RENE OUTPATIEN 7 7 HEALTH T VISIT SOLUTIONS 25 IN MINUTES [facility]OSPITAL [facility] - 6 6 [facility]PATIEN INC T [facility] - 6 6 [facility] T [facility] 6 6 [facility] INC T [facility] - 6 6 [facility] INC T [facility] - 6 6 [facility] OUTPATIEN INC T OFFICE 32803 [facility] OUTPATIEN 6 6 PHYSICIAN SERENA T VISIT S GROUP 15 MINUTES HOSPITAL [facility] - 6 6 [facility] OUTPATIEN INC T OFFICE 57545 [facility] OUTPATIEN 6 6 PHYSICIAN SERENA T VISIT S GROUP 15 MINUTES OFFICE 14137 [facility] OUTPATIEN 6 6 PHYSICIAN SERENA T VISIT S GROUP 25 MINUTES OFFICE 14869 [facility] OUTPATIEN 6 6 PHYSICIAN SERENA T VISIT S GROUP 15 MINUTES HOSPITAL [facility] - 6 6 [facility] OUTPATIEN INC T OFFICE 01265 [facility] OUTPATIEN 6 6 PHYSICIAN SERENA T VISIT S GROUP 25 MINUTES OFFICE 01812 [facility] OUTPATIEN 6 6 PHYSICIAN SERENA T VISIT S GROUP 25 MINUTES HOSPITAL [facility] - 6 6 [facility]IEN INC T OFFICE 31998 JOSE BRADFORD OUTPATIEN 6 6 S[facility]Z [facility] T VISIT 25 MINUTES HOSPITAL [facility] - 6 6 [facility] OUTPATIEN INC T OFFICE 85684 JOSE BRADFORD OUTPATIEN 6 6 SANCHEZ MORE SERENA T VISIT 15 MINUTES OFFICE 49859 RADHA LÓPEZ OUTPATIEN 6 6 LISA NAN T VISIT URGENT 25 TREAT MINUTES EMERGENCY 75372 NWAUCHE NWAUCHE DEPT 6 6 [facility] VISIT HIGH SEVERITY& THREAT FUN OFFICE 78763 JOSE Costello [facility] OUTPATIEN 6 6 SANC[facility]Z [facility]YONS T VISIT 15 MINUTES HOSPITAL [facility] - 6 6 [facility]EN [facility] 44980 [facility] OUTPATIEN 6 6 PHYSICIAN SERENA T VISIT S GROUP 25 MINUTES EMERGENCY 33829 [facility] 5 5 [facility] T VISIT HIGH/URGE NT SEVERITY EMERGENCY 41888 [facility] DEPT 5 5 [facility] VISIT HIGH SEVERITY& THREAT [facility] HOSPITAL [place] - 5 5 [facility] EMERGENCY 86181 ALFARIS ALFARIS DEPT 5 5 [facility] VISIT HIGH SEVERITY& THREAT FUN EMERGENCY 51261 SWINEY SWINEY DEPT 5 5 PAT PAT VISIT HIGH SEVERITY& THREAT [facility] OFFICE 02027 [facility] OUT[facility] 5 5 [facility] V[facility]ICAL 15 G MINUTES [facility] 5 5 [facility] OUTPATIEN [facility] OFFICE 14055 [facility] OUTPATI[facility] 5 5 [facility] VISIT MEDICAL 15 G MINUTES OFFICE 03174 JOSE VALDOVINOSL OUTPATIEN 5 5 [facility] LYONS T VISIT 15 MINUTES HOSPITAL [facility] - 5 5 [facility] - 5 5 [facility] OFFICE 95075 JOSE BRADFORD OUTPATIEN 5 5 [facility] T VISIT 15 MINUTES OFFICE 74171 JOSE VALDOVINOSL OUTPATIEN 5 5 [facility] T VISIT 15 MINUTES [facility]OSPITAL [facility] - 4 4 [facility] T [facility] - 4 4 [facility] OUTPATIEN INC T OFFICE 09451 BEULAH LYDIA OUTPATIEN 4 4 [facility] T VISIT MEDICAL 15 G MINUTES EMERGENCY 47796 [facility] VANEGAS 4 4 [facility] T VISIT P LOW/MODER SEVERITY OFFICE 13620 OJSE BRADFORD OUTPATIEN 4 4 S[facility]YONS T VISIT 15 MINUTES OFFICE 47986 JOSE BRADFORD OUTPATIEN 4 4 SANC[facility]YONS T VISIT 15 MINUTES HOSPITAL [facility] - 4 4 [facility] INPATIENT INC OFFICE 29024 JOSE BRADFORD OUTPATIEN 4 4 S[facility]ONS T VISIT 15 MINUTES OFFICE 60067 JOSE BRADFORD OUTPATIEN 4 4 [facility] T VISIT 15 MINUTES OFFICE 44232 JOSE BRADFORD OUTPATIEN 4 4 [facility] T VISIT 15 MINUTES OFFICE 73283 AGGIE MARCIAL OUTPATIEN 4 4 TEGAN TEGAN T VISIT 15 MINUTES [facility]PITAL [facility] - 4 4 [facility] - 4 4 [facility] OUTPATIEN INC T OFFICE 42289 AGGIE MARCIAL OUTPATIEN 4 4 TEGAN TEGAN T VISIT 15 MINUTES EMERGENCY 81570 [facility] DEPT 4 4 BRO BRO VISIT HIGH SEVERITY& THREAT FUN [facility]OSPITAL [facility] - 4 4 [facility] OUTPATIEN INC T OFFICE 27981 JOSE BRADFORD OUTPATIEN 4 4 S[facility]YONS T VISIT 15 MINUTES [facility]OSPITAL [facility] - 4 4 [facility] OUTPATIEN INC T OFFICE 45986 JOSEAARON ANNAPEL OUTPATIEN 4 4 [facility] T VISIT 15 MINUTES OFFICE 64681 JOSE ANNAPEL OUTPATIEN 4 4 SANC[facility]Z MORE SERENA T VISIT 15 MINUTES OFFICE 40108 JOSE Costello [facility] OUTPATIEN 4 4 [facility] T VISIT 15 MINUTES [facility]PITAL [facility] - 4 4 [facility] OUTPATIEN INC T OFFICE 91469 JOSE Costello [facility] OUTPATIEN 4 4 SANC[facility]Z MORE SERENA T VISIT 15 MINUTES OFFICE 66481 JOSE ANNAPEL OUTPATIEN 4 4 SANC[facility]Z MORE SERENA T VISIT 15 MINUTES [facility]PITAL [facility] - 4 4 [facility] OUTPATIEN INC T OFFICE 09080 JOSE Costello [facility] OUTPATIEN 4 4 SANC[facility]Z MORE SERENA T VISIT 15 MINUTES OFFICE 33261 JOSE Costello [facility] OUTPATIEN 4 4 SANC[facility]Z MORE SERENA T VISIT 15 MINUTES OFFICE 23870 JOSE ANNAPEL OUTPATIEN 3 3 [facility]YONS T VISIT 15 MINUTES [facility]PITAL [facility] - 3 3 [facility] OUTPATIEN INC T EMERGENCY 87719 [facility] 3 3 [facility] DEPARTMEN INC T VISIT LOW/MODER SEVERITY EMERGENCY 39145 NANCY FORD DEPT 3 3 EMERGENCY III [facility] HIGH SEVERITY& THREAT [facility] PERIODIC 26851 JOSE BRADFORD PREVENTIV 3 3 SANCHEZ LYONS E MED EST PATIENT 18-39 YRS OFFICE 92279 RADHA GARCIA OUTPATIEN 3 3 [place] [facility] T DEPT DEPT MINUTES
--- OUTSIDE RECORDS SUMMARY | 2017-07-27 17:05 | External Medical Summary Rpt ---
Author Author [employer], [employer] Organization [employer] Address Unknown Phone Unavailable Results CHLAMYDIA AND GONORRHEA TESTING Observa Value Referen Units Interpr Notes Date tion ce etation Range COLLECT C3819 No No No No March 10 OR informa informa informa informa 2013 tion in tion in tion in tion in 9:50 AM source source source source data data data data ETHNICI WHITE, No No No No March 10 TY NON-HIS informa informa informa informa 2013 PANIC tion in tion in tion in tion in 9:50 AM source source source source data data data data KIT -2012 No No No No March 10 EXPIRAT informa informa informa informa 2013 ION tion in tion in tion in tion in 9:50 AM DATE source source source source data data data data SYMPTOM NO No No No No March 10 S informa informa informa informa 2013 tion in tion in tion in tion in 9:50 AM source source source source data data data data REASON FAMILY No No No No March 10 FOR PLANNIN informa informa informa informa 2013 REQUEST G tion in tion in tion in tion in 9:50 AM PREGNAN source source source source CY TEST data data data data VISIT SPECIME URINE No No No No March 10 N informa informa informa informa 2013 SOURCE tion in tion in tion in tion in 9:50 AM source source source source data data data data PREGNAN NO No No No No March 10 T informa informa informa informa 2013 tion in tion in tion in tion in 9:50 AM source source source source data data data data CHART N/A No No No No March 10 NUMBER informa informa informa informa 2013 tion in tion in tion in tion in 9:50 AM source source source source data data data data Chlamyd NEGATIV No No No NEGATIV March 10 ia E informa informa informa E 2013 trachom tion in tion in tion in RESULT= 9:50 AM atis source source source WITHIN rRNA data data data NORMAL [Presen ce] in LIMITSP Unspeci OSITIVE fied specime RESULT= n by Probe & ABNORMA target LEQUIVO JASMINA amplifi RESULT= cation method INDETER MINATEU NSATISF ACTORY RESULT= INVALID Neisser NEGATIV No No No NEGATIV March 10 ia E informa informa informa E 2013 gonorrh tion in tion in tion in RESULT= 9:50 AM oeae source source source WITHIN rRNA data data data NORMAL [Presen ce] in LIMITSP Unspeci OSITIVE fied specime RESULT= n by Probe & ABNORMA target LEQUIVO JASMINA amplifi RESULT= cation method INDETER MINATEU NSATISF ACTORY RESULT= INVALID THE APTIMA COMBO 2 ASSAY IS NOT INTENDE D FOR THE EVALUAT ION OF SUSPECT EDSEXUA L ABUSE OR FOR OTHER MEDICO- LEGAL INDICAT IONS. FOR THOSE PATIENT S FORWHOM A FALSE POSITIV E RESULT MAY HAVE ADVERSE PSYCHO- SOCIAL IMPACT, [facility] MMENDS RETESTI NG.\.br \This report contain s patient informa tion that must be protect ed in accorda nce with the Health Insuran ce Portabi lity and Account ability Act. CHLAMYDIA AND GONORRHEA TESTING Observa Value Referen Units Interpr Notes Date tion ce etation Range COLLECT C3819 No No No No March 10 OR informa informa informa informa 2013 tion in tion in tion in tion in 9:50 AM source source source source data data data data ETHNICI WHITE, No No No No March 10 TY NON-HIS informa informa informa informa 2013 PANIC tion in tion in tion in tion in 9:50 AM source source source source data data data data KIT -2012 No No No No March 10 EXPIRAT informa informa informa informa 2013 ION tion in tion in tion in tion in 9:50 AM DATE source source source source data data data data SYMPTOM NO No No No No March 10 S informa informa informa informa 2013 tion in tion in tion in tion in 9:50 AM source source source source data data data data REASON FAMILY No No No No March 10 FOR PLANNIN informa informa informa informa 2013 REQUEST G tion in tion in tion in tion in 9:50 AM PREGNAN source source source source CY TEST data data data data VISIT SPECIME URINE No No No No March 10 N informa informa informa informa 2013 SOURCE tion in tion in tion in tion in 9:50 AM source source source source data data data data PREGNAN NO No No No No March 10 T informa informa informa informa 2013 tion in tion in tion in tion in 9:50 AM source source source source data data data data CHART N/A No No No No March 10 NUMBER informa informa informa informa 2013 tion in tion in tion in tion in 9:50 AM source source source source data data data data Chlamyd Pending No No No No March 10 ia informa informa informa informa 2013 trachom tion in tion in tion in tion in 9:50 AM atis source source source source rRNA data data data data [Presen ce] in Unspeci fied specime n by Probe & target amplifi cation method Neisser Pending No No No \.br\March 10 ia informa informa informa is 2013 gonorrh tion in tion in tion in report 9:50 AM oeae source source source contain rRNA data data data s [Presen patient ce] in Unspeci informa fied tion specime that n by must be Probe & target protect ed in amplifi accorda cation nce method with the Health Insuran ce Portabi lity and Account ability Act.
--- OUTSIDE RECORDS SUMMARY | 2017-07-27 17:05 | External Medical Summary Rpt ---
[...] MAY HAVE ADVERSE PSYCHO- SOCIAL IMPACT, [facility] RETESTI NG.\.br \This report contain s [...]
--- OUTSIDE RECORDS SUMMARY | 2017-07-27 17:05 | External Medical Summary Rpt | CCD ---
Author Author , [employer]EL[employer] Organization [employer] Address Unknown Phone [email or web address] Immunization Name Date Rout CVX Reac Dose Comm Prov Is Faci e tion ent ider Refu lity Give sed n Tdap 05-2 115 999 Hist H191 No H191 , 1-20 oric Adso 14 al rbed Info rmat ion - Sour ce Unsp ecif ied Hep 07-0 8 999 Hist H191 No H191 B, 9-20 oric ped/ 03 al adol Info rmat ion - Sour ce Unsp ecif ied Td 07-0 9 999 Hist H191 No H191 (vargas 9-20 oric lt), 03 al Info adso rmat rbed ion - Sour ce Unsp ecif ied Hep 02-1 8 999 Hist H191 No H191 B, 0-20 oric ped/ 03 al adol Info rmat ion - Sour ce Unsp ecif ied Hep 01-0 8 999 Hist H191 No H191 B, 2-20 oric ped/ 03 al adol Info rmat ion - Sour ce Unsp ecif ied Sarabjit 01-0 10 999 Hist H191 No H191 o-IP 2-20 oric V 03 al Info rmat ion - Sour ce Unsp ecif ied Sarabjit 06-1 2 999 Hist H191 No H191 o-OP 1-19 oric V 96 al Info rmat ion - Sour ce Unsp ecif ied MMR 06-1 3 999 Hist H191 No H191 1-19 oric 96 al Info rmat ion - Sour ce Unsp ecif ied DTaP 06-1 107 999 Hist H191 No H191 , UF 1-19 oric 96 al Info rmat ion - Sour ce Unsp ecif ied
--- OUTSIDE RECORDS SUMMARY | 2017-07-27 17:05 | External Medical Summary Rpt | CCD ---
Author Author , AR[employer]ELIA Organization [employer] Address Unknown Phone [email or web address] Immunization Name Date Rout CVX Reac Dose [...]
[2017-07-27 17:25] VITALS: BP 119/75
== END 2017-07-27 17:26 | disposition home or self-care (01) ==
LOC: ER 16:28
DX: K08.89 Other specified disorders of teeth and supporting structures (principal); Z79.899 Other long term (current) drug therapy